=== PATIENT | female | born 1930 | race Caucasian/White ===

== ENCOUNTER → 2016-09-24 | Outpatient (CLI) | payer BC ==
[2016-09-25 07:51] LABS: ESTIMATED AVERAGE GLUCOSE 146 mg/dl; HA1C FLAG Normal (Normal)
== END | disposition home or self-care (01) ==
LOC: C.LAB1850 15:02
PROVIDERS: ATTEND Internal Medicine
DX: E11.9 Type 2 diabetes mellitus without complications (principal)

== ENCOUNTER → 2016-12-31 | Outpatient (CLI) | payer BC ==
[2016-12-31 09:56] LABS: ALT/SGPT 26 U/L (12-78); AST/SGOT 17 U/L (15-37); BLOOD UREA NITROGEN 29 mg/dl (7-18); CALCIUM 10.1 mg/dl (8.5-10.1); CARBON DIOXIDE 29 mmol/L (21-32); CHLORIDE 100 mmol/L (98-107); GLUCOSE 132 mg/dl (70-99); POTASSIUM 4.3 mmol/L (3.5-5.1); SODIUM 136 mmol/L (136-145)
[2016-12-31 10:09] LABS: CHOLESTEROL 156 mg/dl (0-200); CHOLESTEROL/HDL RATIO 2.1; HDL CHOLESTEROL 74 mg/dl; LDL CHOLESTEROL CALCULATED 65 mg/dl; THYROID STIMULATING HORMONE 0.636 uIu/ml (0.300-4.500); TRIGLYCERIDES 83 mg/dl (0-150); VERY LOW DENSITY LIPOPROT CALC 17 mg/dl
[2016-12-31 10:15] LABS: URINE APPEARANCE CLEAR (CLEAR); URINE BILIRUBIN NEG (NEG); URINE COLOR YELLOW; URINE NITRITE NEG (NEG); URINE SPECIFIC GRAVITY 1.024 (1.000-1.030); UROBILINOGEN NEG (NEG)
[2016-12-31 10:17] LABS: MANUAL MICROSCOPIC REQUIRED? NO; REVIEW REQ? NO
[2016-12-31 10:42] LABS: BASO % 0.8 %; BASO ABS # 0.09 K/uL (0-0.2); COMPLETE YES; EOS % 5.3 %; HEMATOCRIT 39.8 % (37-47); IG% 0.4 %; LYMPH % 18.7 %; LYMPH ABS # 2.11 K/uL (1.2-3.4); MEAN CELL VOLUME 93.2 fL (80-100); MEAN CORPUSCULAR HEMOGLOBIN 31.1 pg (25-34); MEAN CORPUSCULAR HGB CONC 33.4 g/dl (32-36); MEAN PLATELET VOLUME 9.3 fL (7.4-10.4); MONO % 7.5 %; NEUT % 67.3 %; PLATELET COUNT 396 K/uL (130-400); RED BLOOD COUNT 4.27 M/uL (4.2-5.4); WHITE BLOOD COUNT 11.26 K/uL (4.8-10.8)
[2016-12-31 11:02] LABS: ESTIMATED AVERAGE GLUCOSE 143 mg/dl; HA1C FLAG Normal (Normal)
== END | disposition home or self-care (01) ==
LOC: C.LAB1850 08:18
PROVIDERS: ATTEND Internal Medicine
DX: E11.9 Type 2 diabetes mellitus without complications (principal)

== ENCOUNTER → 2017-03-13 | Outpatient (CLI) | payer BC ==
--- NOTE | 2017-03-13 14:35 | MAMMOGRAPHY REPORT ---
UNILATERAL RIGHT DIGITAL SCREENING MAMMOGRAM TOMOSYNTHESIS WITH CAD: 03/13/2017 CLINICAL HISTORY: Routine screening. Patient has no complaints. TECHNIQUE: Breast tomosynthesis in addition to standard 2D mammography was performed. Current study was also evaluated with a Computer Aided Detection (CAD) system. COMPARISON: Comparison is made to exams dated: 10/18/2015 mammogram - [facility], mammogram, 09/13/2013 mammogram, 09/13/2013 mammogram, 02/03/2012 mammogram, and 02/18/2011 mamm ogram. BREAST COMPOSITION: There are scattered areas of fibroglandular density in the right breast. FINDINGS: There are no suspicious masses, calcifications, or areas of nonsurgical architectural dist ortion noted in the right breast. There has been no significant interval change compared to prior ex ams. A linear scar marker denotes a scar on the right upper outer breast. Scattered benign-appearin g calcifications are not significantly changed. IMPRESSION: ACR BI-RADS CATEGORY 2: BENIGN There is no mammographic evidence of malignancy in the right breast. A 1 year screening mammogram is recommended. The patient will receive written notification of the results. Approximately 10% of breast cancers are not detected with mammography. A negative mammographic report should not delay biopsy if a clinically suggestive mass is present. Koki Lopez M.D. /:03/13/2017 12:15:22 [place]: Sara Alan, [facility] letter sent: Normal 1/2 BI-RADS Code: ACR BI-RADS Category 2: Benign
== END | disposition home or self-care (01) ==
LOC: C.MAMM 10:31
PROVIDERS: ATTEND Internal Medicine
DX: Z12.31 Encounter for screening mammogram for malignant neoplasm of breast (principal); Z85.3 Personal history of malignant neoplasm of breast

== ENCOUNTER → 2017-05-12 | Outpatient (CLI) | payer BC ==
[2017-05-12 09:58] LABS: ESTIMATED AVERAGE GLUCOSE 143 mg/dl; HA1C FLAG Normal (Normal)
== END | disposition home or self-care (01) ==
LOC: C.LAB1850 08:50
PROVIDERS: ATTEND Physician Assistant
DX: E11.9 Type 2 diabetes mellitus without complications (principal)

== ENCOUNTER 2017-06-28 17:11 | Emergency (ER) | payer BC ==
[~2017-06-28] VITALS: Ht 157.5 cm; Wt 60.9 kg
[2017-06-28 17:16] VITALS: TEMP 36.6; Ht 157.5 cm; Wt 60.9 kg
--- NOTE | 2017-06-28 17:39 | DIAGNOSTIC IMAGING REPORT ---
CHEST ONE VIEW PORTABLE CLINICAL HISTORY: Fever. Sepsis. COMPARISON STUDY: No previous studies for comparison. FINDINGS: Patient is rotated. Minimal left basilar opacity suggests atelectasis. There is no consolidation to suggest pneumonia and there is no evidence of pulmonary edema. Mild cardiomegaly is noted. IMPRESSION: No acute cardiopulmonary findings. Electronically signed by: Emery Hoang M.D. 06/28/2017 5:38 PM Dictated Date/Time: 06/28/2017 5:37 PM
[2017-06-28 17:59] LABS: INFLUENZA B ANTIGEN POS for Influ B (NEG)
[2017-06-28] MEDS ORDERED: OSELTAMIVIR PHOSPHATE 75 MG CAP PO STA (18:07)
[2017-06-28] MEDS ORDERED: OSEL75CA12 PO (18:12)
--- NOTE | 2017-06-28 18:14 | EMERGENCY ROOM VISIT NOTE ---
History Report prepared by Casey: Rito Boss Under the Supervision of: Dr. Alejandro Garcia D.O. First contact with patient: 17:19 Chief Complaint: FLU LIKE SX Stated Complaint: TIGHT CHEST, RUNNY NOSE,COUGH History of Present Illness The patient is a 86 year old female who presents to the Emergency Room with complaints of flu like symptoms that began 3 days ago. She states she has decreased appetite, sore throat, dry cough, and congestion. She denies SOB and dehydration. Patient states that he generalized body aches are not unusual. Source of History: patient Onset: 3 days ago Position: other (global) Timing: constant Associated Symptoms: + sorethroat, + cough, No SOB Note: Patient complains of congestion and decreased appetite. Patient denies dehydration. She states her generalized body aches are not unusual. Review of Systems See HPI for pertinent positives & negatives. A total of 10 systems reviewed and were otherwise negative. Social History Smoking Status: Former Smoker Occupation Status: retired Current/Historical Medications Scheduled Oseltamivir (Tamiflu), 75 MG PO BID Physical Exam Vital Signs Date Time Temp Pulse Resp B/P (MAP) Pulse Ox O2 Delivery O2 Flow Rate FiO2 06/28/17 18:15 60 16 140/68 94 Room Air 06/28/17 17:16 36.6 65 20 138/70 94 Room Air Physical Exam CONSTITUTIONAL/VITAL SIGNS: Reviewed / noted above. GENERAL: Non-toxic in appearance. Hoarseness in voice. INTEGUMENTARY: Warm, dry, and [place]. HEAD: Normocephalic. EYES: without scleral icterus or trauma. ENT/OROPHARYNX: clear and moist. LYMPHADENOPATHY/NECK: Is supple without lymphadenopathy or meningismus. RESPIRATORY: Lungs clear and equal. CARDIOVASCULAR: Regular rate and rhythm. GI/ABDOMEN: Soft and nontender. No organomegaly or pulsatile mass. No rebound or guarding. Normal bowel sounds. EXTREMITIES: Warm and well perfused. BACK: No CVA tenderness. NEUROLOGICAL: Intact without focal deficits. PSYCHIATRIC: normal affect. MUSCULOSKELETAL: Normally developed with good muscle tone. Medical Decision & Procedures ER Provider Diagnostic Interpretation: Radiology results as stated below per my review and radiologist interpretation: CHEST ONE VIEW PORTABLE CLINICAL HISTORY: Fever. Sepsis. COMPARISON STUDY: No previous studies for comparison. FINDINGS: Patient is rotated. Minimal left basilar opacity suggests atelectasis. There is no consolidation to suggest pneumonia and there is no evidence of pulmonary edema. Mild cardiomegaly is noted. IMPRESSION: No acute cardiopulmonary findings. Electronically signed by: Emery Hoang M.D. 06/28/2017 5:38 PM Dictated Date/Time: 06/28/2017 5:37 PM Laboratory Results Test 06/28/17 17:30 Influenza Type A Antigen Neg for Influ A (NEG) Influenza Type B Antigen POS for Influ B (NEG) Laboratory results as stated above per my review. Medications Administered Medications (Trade) Dose Ordered Sig/Rosalie Route Start Time Stop Time Status Last Admin Dose Admin Oseltamivir Phosphate (Tamiflu Cap) 75 mg NOW STAT PO 06/28/17 18:07 06/28/17 18:08 DC 06/28/17 18:14 75 MG ED Course 171: Previous medical records were reviewed. The patient was evaluated in room C11. A complete history and physical examination was performed. 1806: Tamiflu Cap 75 mg PO. 1814: On reevaluation, the patient is doing well. I discussed the results and findings with the patient. She verbalized agreement of the treatment plan. She was discharged home. Medical Decision Differential includes viral illness, influenza, streptococcal pharyngitis, meningitis, pneumonia, sinusitis, UTI, pyelonephritis, otitis media. This is an 86-year-old female who presents to the ED with a chief complaint of a cough, hoarseness, fatigue and congestion for the past 3 days. The patient states that she came here to be tested for the flu. Her vital signs are normal. Her physical exam was essentially unremarkable. Chest x-ray was negative for acute disease. Flu swab was positive for influenza B. The patient was started on Tamiflu. She was discharged. Medication Reconcilliation Current Medication List: was personally reviewed by me Blood Pressure Screening Patient's blood pressure: Normal blood pressure Blood pressure disposition: Did not require urgent referral Impression Primary Impression: Influenza B Scribe Attestation The scribe's documentation has been prepared under my direction and personally reviewed by me in its entirety. I confirm that the note above accurately reflects all work, treatment, procedures, and medical decision making performed by me. Departure Information Dispostion Home / Self-Care Prescriptions Oseltamivir (Tamiflu) 75 Mg Cap 75 MG PO BID, #10 CAP Prov: Alejandro Garcia D.O. 06/28/17 Patient Instructions My [facility] Additional Instructions Your test results were positive for influenza B. Tamiflu as prescribed. Take [id number] cold and flu medication for symptoms. Drink plenty of fluids. Return to the emergency department for worsening or new symptoms or any concerns. You have been examined and treated today on an emergency basis only. This is not a substitute for, or an effort to provide, complete comprehensive medical care. It is impossible to recognize and treat all injuries or illnesses in a single emergency department visit. It is therefore important that you follow up closely with your doctor. Call as soon as possible for an appointment.
[2017-06-28 18:15] VITALS: BP 140/68; PULSE 60; O2SAT 94
== END 2017-06-28 18:22 | disposition home or self-care (01) ==
LOC: EDUNIT# 17:11 → C.EDB 17:16 → C.EDC 18:22
DX: J10.1 Influenza due to other identified influenza virus with other respiratory manifestations (principal); Z87.891 Personal history of nicotine dependence

== ENCOUNTER 2017-06-30 20:20 | Inpatient (IN) | payer BC, OTHER ==
[~2017-06-30] VITALS: Ht 157.5 cm; Wt 59.0 kg
[~2017-06-30 20:20] MED LIST: OSEL75CA12 PO
--- NOTE | 2017-06-30 22:58 | DIAGNOSTIC IMAGING REPORT ---
CHEST ONE VIEW PORTABLE CLINICAL HISTORY: cough, influenza COMPARISON STUDY: 06/28/2017 FINDINGS: The heart is at the upper limits of normal in size. There is no failure. There is no lobar consolidation. There is minor basilar interstitial thickening similar to the preceding study. No pleural effusions are visualized.[ IMPRESSION: No acute findings. Electronically signed by: Erwin Alvarez M.D. 06/30/2017 10:57 PM Dictated Date/Time: 06/30/2017 10:56 PM
[2017-06-30 23:21] LABS: BASO % 0.1 %; BASO ABS # 0.01 K/uL (0-0.2); HEMATOCRIT 38.6 % (37-47); HEMOGLOBIN 14.3 g/dL (12.0-16.0); IG# 0.03 K/uL (0.00-0.02); LYMPH % 9.7 %; LYMPH ABS # 0.94 K/uL (1.2-3.4); MEAN CELL VOLUME 84.5 fL (80-100); MEAN CORPUSCULAR HEMOGLOBIN 31.3 pg (25-34); MEAN PLATELET VOLUME 8.6 fL (7.4-10.4); MONO % 8.6 %; MONO ABS # 0.84 K/uL (0.11-0.59); NEUT % 81.3 %; PLATELET COUNT 262 K/uL (130-400); RED CELL DISTRIBUTION WIDTH CV 13.4 % (11.5-14.5); RED CELL DISTRIBUTION WIDTH SD 40.6 fL (36.4-46.3); WHITE BLOOD COUNT 9.72 K/uL (4.8-10.8)
[2017-06-30 23:56] LABS: ALBUMIN 3.4 gm/dl (3.4-5.0); ALKALINE PHOSPHATASE 64 U/L (45-117); ALT/SGPT 34 U/L (12-78); AST/SGOT 41 U/L (15-37); BLOOD UREA NITROGEN 18 mg/dl (7-18); CALCIUM 8.6 mg/dl (8.5-10.1); CARBON DIOXIDE 28 mmol/L (21-32); GLUCOSE 118 mg/dl (70-99); POTASSIUM 3.3 mmol/L (3.5-5.1); SODIUM 111 mmol/L (136-145); TOTAL PROTEIN 7.2 gm/dl (6.4-8.2)
[2017-06-30] MEDS ORDERED: SODIUM CHLORIDE 0.9% 1000ML 1,000 ML IV STA (23:57)
[2017-07-01] MEDS ORDERED: MULT-506 PO (00:53)
[2017-07-01] MEDS ORDERED: MULTCAP7 PO (00:54)
[2017-07-01] MEDS ORDERED: LEVO25TA PO (00:55)
[2017-07-01] MEDS ORDERED: B/P MED PO (00:55)
[2017-07-01] MEDS ORDERED: CALC500C70 PO (00:57)
[2017-07-01] MEDS ORDERED: CHOLESTEROL MED PO (00:58)
[2017-07-01] MEDS ORDERED: GLC/500 PO (00:59)
[2017-07-01] MEDS ORDERED: IBUP-1050 PO (01:00)
--- NOTE | 2017-07-01 02:05 | History and Physical ---
History & Physical Date & Time of Service: Jul 01, 2017 at 02:03 Chief Complaint: Flu Like,Fatiuge,Weakness,Nausea Primary Care Physician: Denis Patton M.D. History of Present Illness Source: patient, family, hospital records 86 year old elizabeth with DMII, hypothyroidism, HTN was seen in the ED 2 days ago and found to be positive for influenza. She was sent home with Tamiflu, but discontinued the medication after 2 doses because the medication made her feel anxious. However, since then, patient continues to feel unwell with initially dry, now productive cough of light green sputum and significant weakness. She has nasal congestion with post nasal drip, and had 1 episode of post-tussive vomiting. She has diminished appetite, with attempts to eat causing increased nausea. Her fatigue has been ongoing for a couple of days now - patient has felt off balance, but denies dizziness or lightheadedness. No sick contacts. She denies headaches, vision changes, CP, dyspnea with coughing or on exertion, no myalgias, and no urinary symptoms. She denies dehydration as she has been able to drink fluids - namely water, tea and seltzer. She has no constipation or diarrhea - she notes softer stools, with no blood, and no significant change in frequency. Patient sleeping poorly, secondary to chronic anxiety ROS is unremarkable except as noted above. Past Medical/Surgical History MEDICAL PROBLEMS Hypothyroidism Diabetes type II Anxiety HTN SURGICAL PROBLEMS Thyroidectomy Left breast mastectomy Tonsillectomy Family History Mom cardiac issues, Father DM Social History Smoking Status: Former Smoker (Ex smoker of 40 years, 35 pack year history) Smokeless Tobacco Use: No Alcohol Use: none Drug Use: none Housing status: lives alone Occupational Status: retired Immunizations History of Influenza Vaccine: Yes History of Tetanus Vaccine?: Yes History of Pneumococcal: Yes History of Hepatitis B Vaccine: Yes Multi-Drug Resistant Organisms History of MDRO: No Allergies Coded Allergies: Sulfa Antibiotics (Verified Allergy, Intermediate, hives, 07/01/17) Home Medications Scheduled Calcium/Vitamin D (Os-Carlo 500 Plus D), 1 TAB PO DAILY Ibuprofen (Advil), 400 MG PO BID Levothyroxine Sodium (Synthroid), Unknown Dose PO DAILY Metformin Hcl (Glucophage), Unknown Dose PO BID Multiple Vitamins W/ Minerals (Eye Vitamins), 1 CAP PO DAILY Multivitamin (Multivitamin), 1 TAB PO DAILY Oseltamivir (Tamiflu), 75 MG PO BID [B/P Med], 1 DOSE PO DAILY [Cholesterol Med], 1 DOSE PO QPM Physical Exam Vital Signs Date Time Temp Pulse Resp B/P (MAP) Pulse Ox O2 Delivery O2 Flow Rate FiO2 07/01/17 02:02 67 18 146/69 94 Room Air 07/01/17 01:33 66 16 140/68 96 Room Air 07/01/17 00:23 36.8 64 18 146/68 98 Room Air 06/30/17 23:19 64 20 181/72 93 Room Air 06/30/17 21:37 60 20 161/75 97 Room Air 06/30/17 20:33 36.8 62 18 179/77 96 Room Air General Appearance: WD/WN, no apparent distress Head: normocephalic, atraumatic Eyes: normal inspection ENT: hearing grossly normal, pharynx normal, + pertinent finding (Tacky mucous membranes) Neck: supple, no adenopathy Respiratory/Chest: normal breath sounds, no respiratory distress, no accessory muscle use Cardiovascular: regular rate, rhythm, no murmur, normal peripheral pulses Abdomen/GI: normal bowel sounds, non tender, soft Back: normal inspection, no CVA tenderness Extremities/Musculoskelatal: no calf tenderness, no pedal edema Neurologic/Psych: alert, normal mood/affect, oriented x 3 Skin: normal color, warm/dry, no rash Diagnostics Laboratory Results Results Past 24 Hours Test 06/30/17 23:00 Range/Units White Blood Count 9.72 4.8-10.8 K/uL Red Blood Count 4.57 4.2-5.4 M/uL Hemoglobin 14.3 12.0-16.0 g/dL Hematocrit 38.6 37-47 % Mean Corpuscular Volume 84.5 80-100 fL Mean Corpuscular Hemoglobin 31.3 25-34 pg Mean Corpuscular Hemoglobin Concent 37.0 32-36 g/dl Platelet Count 262 130-400 K/uL Mean Platelet Volume 8.6 7.4-10.4 fL Neutrophils (%) (Auto) 81.3 % Lymphocytes (%) (Auto) 9.7 % Monocytes (%) (Auto) 8.6 % Eosinophils (%) (Auto) 0.0 % Basophils (%) (Auto) 0.1 % Neutrophils # (Auto) 7.90 1.4-6.5 K/uL Lymphocytes # (Auto) 0.94 1.2-3.4 K/uL Monocytes # (Auto) 0.84 0.11-0.59 K/uL Eosinophils # (Auto) 0.00 0-0.5 K/uL Basophils # (Auto) 0.01 0-0.2 K/uL RDW Standard Deviation 40.6 36.4-46.3 fL RDW Coefficient of Variation 13.4 11.5-14.5 % Immature Granulocyte % (Auto) 0.3 % Immature Granulocyte # (Auto) 0.03 0.00-0.02 K/uL Urine Color YELLOW Urine Appearance CLEAR CLEAR Urine pH 6.5 4.5-7.5 Urine Specific [place] 1.021 1.000-1.030 Urine Protein 3+ NEG Urine Glucose (UA) NEG NEG Urine Ketones 2+ NEG Urine Occult Blood 1+ NEG Urine Nitrite NEG NEG Urine Bilirubin NEG NEG Urine Urobilinogen NEG NEG Urine Leukocyte Esterase NEG NEG Urine WBC (Auto) 1-5 0-5 /hpf Urine RBC (Auto) 10-30 0-4 /hpf Urine Hyaline Casts (Auto) 1-5 0-5 /lpf Urine Epithelial Cells (Auto) 10-20 0-5 /lpf Urine Bacteria (Auto) NEG NEG Urine Osmolality 600 500-800 mOms/kg Sodium Level 111 136-145 mmol/L Potassium Level 3.3 3.5-5.1 mmol/L Chloride Level 71 98-107 mmol/L Carbon Dioxide Level 28 21-32 mmol/L Anion Gap 12.0 3-11 mmol/L Blood Urea Nitrogen 18 7-18 mg/dl Creatinine 0.80 0.60-1.20 mg/dl Est Creatinine Clear Calc Drug Dose 41.4 ml/min Estimated GFR () 78.5 Estimated GFR (Non- 67.7 BUN/Creatinine Ratio 22.6 10-20 Random Glucose 118 70-99 mg/dl Osmolality 235 280-300 mOsm/kg Calcium Level 8.6 8.5-10.1 mg/dl Total Bilirubin 1.0 0.2-1 mg/dl Aspartate Amino Transf (AST/SGOT) 41 15-37 U/L Alanine Aminotransferase (ALT/SGPT) 34 12-78 U/L Alkaline Phosphatase 64 45-117 U/L Troponin I < 0.015 0-0.045 ng/ml Total Protein 7.2 6.4-8.2 gm/dl Albumin 3.4 3.4-5.0 gm/dl Globulin 3.8 2.5-4.0 gm/dl Albumin/Globulin Ratio 0.9 0.9-2 Diagnostic Radiology CHEST ONE VIEW PORTABLE CLINICAL HISTORY: cough, influenza COMPARISON STUDY: 06/28/2017 FINDINGS: The heart is at the upper limits of normal in size. There is no failure. There is no lobar consolidation. There is minor basilar interstitial thickening similar to the preceding study. No pleural effusions are visualized.[ IMPRESSION: No acute findings. EKG Normal sinus rhythm Nonspecific ST abnormality Abnormal ECG No previous ECGs available Hr 64, QTc 453 Impression Assessment and Plan 86 year old female with DMII, hypothyroidism, HTN admitted with hyponatremia. Hyponatremia - 111 on admission - Low serum OSM, and low urine OSM - no evidence of SIADH - Lasix 40mg daily - NaCl tablets ordered - Trend BMP q6h Weakness - Likely contributed to by influenza and hyponatremia - PT/OT evals Influenza - Patient declining Tamiflu - Symptomatic management - Sputum culture ordered DM - Hold metformin 1000mg BID - ISS with checks ac/hs HTN/HLD - Continue home meds: metoprolol, simvastatin Hold triamterene/HCTZ Hypothyroidism - Continue levothyroxine VTE ppx - SCDs Attending addendum: I have physically seen this patient, have supervised the medical residents activities, and agree with the H&P unless as otherwise noted. Assessment and Plan: Hyponatremia with hypoosmolality-- Sodium 111, serum osmolality 235 and urine osmolality 235. Lasix 40 mg IV daily Sodium chloride tablets BMP every 6 hours for 48 hours. Hold triamterene/HCTZ Likely an element of polydipsia Influenza-- Patient refusing Tamiflu Treat symptomatically Sputum Gram stain and culture Level of Care Med/Surg Advanced Directives Existing Advance Directive: No Existing Living Will: Yes Existing Power of Bulb Weeder: No Existing Health Care Proxy: Yes (Daughter: Nguyen Brown) Resuscitation Status DO NOT RESUSCITATE VTE Prophylaxis VTE Risk Assessment Done? Y/N: Yes Risk Level: Moderate Given or contraindicated: SCD's Resident Tracking Resident Involvement: Resident Care Provided Care Provided: Adult Hospital Medicine
[2017-07-01] MEDS ORDERED: ACETAMINOPHEN 325 MG TAB PO PRN (03:30)
[2017-07-01] MEDS ORDERED: ONDANSETRON INJ 2 MG/ML 2 ML VIAL IV PRN (03:30)
[2017-07-01] MEDS ORDERED: MAGNESIUM HYDROXIDE SUSP 30 ML UDC PO PRN (03:30)
[2017-07-01] MEDS ORDERED: ALUMINUM/MAGNESIUM/SIMETH (MAALOX MAX) 30 ML UDC PO PRN (03:30)
[2017-07-01] MEDS ORDERED: POLYETHYLENE (MIRALAX) 17 GM PACK PO PRN (03:30)
[2017-07-01 04:28] LABS: CALCIUM 7.7 mg/dl (8.5-10.1); CREATININE 0.63 mg/dl (0.60-1.20)
[2017-07-01 04:53] VITALS: BP 176/61; PULSE 65; TEMP 36.8; Ht 157.5 cm; Wt 59.0 kg
[2017-07-01] MEDS ORDERED: POTASSIUM CHLORIDE 20 MEQ TABCR PO ONE (07:00)
[2017-07-01] MEDS: LEVOTHYROXINE 112 MCG TAB PO SCH (07:24)
--- NOTE | 2017-07-01 07:28 | EMERGENCY ROOM VISIT NOTE ---
History First contact with patient: 22:14 Chief Complaint: FLU LIKE SX Stated Complaint: HYPONATREMIA History of Present Illness The patient is a 86 year old female who presents to the Emergency Room with complaints of weakness and influenza. The patient states she was seen here a few days ago and diagnosed with influenza. She was prescribed Tamiflu but has been unable to take this due to vomiting. She reports she has had a decreased appetite and has been vomiting after eating. She reports a cough and chest tightness. She states she has been trying to bring up mucus but has been having difficulty doing so. She reports that she has been feeling generalized weakness and does not feel well overall. She denies chest pain or shortness of breath. She denies abdominal pain or diarrhea. Review of Systems A complete 10 point review of systems was reviewed with the patient with pertinent positives and negatives as per history of present illness. All else were negative. Past Medical/Surgical History Medical Problems: (1) Diabetes mellitus, type II (2) Hyponatremia Social History Smoking Status: Never Smoker Smokeless Tobacco Use: No Drug Use: none Occupation Status: retired Current/Historical Medications Scheduled Calcium/Vitamin D (Os-Carlo 500 Plus D), 1 TAB PO DAILY Ibuprofen (Advil), 400 MG PO BID Levothyroxine Sodium (Synthroid), Unknown Dose PO DAILY Metformin Hcl (Glucophage), Unknown Dose PO BID Multiple Vitamins W/ Minerals (Eye Vitamins), 1 CAP PO DAILY Multivitamin (Multivitamin), 1 TAB PO DAILY Oseltamivir (Tamiflu), 75 MG PO BID [B/P Med], 1 DOSE PO DAILY [Cholesterol Med], 1 DOSE PO QPM Physical Exam Vital Signs Date Time Temp Pulse Resp B/P (MAP) Pulse Ox O2 Delivery O2 Flow Rate FiO2 07/01/17 03:07 64 18 127/72 93 Room Air 07/01/17 02:02 67 18 146/69 94 Room Air 07/01/17 01:33 66 16 140/68 96 Room Air 07/01/17 00:23 36.8 64 18 146/68 98 Room Air 06/30/17 23:19 64 20 181/72 93 Room Air 06/30/17 21:37 60 20 161/75 97 Room Air 06/30/17 20:33 36.8 62 18 179/77 96 Room Air Physical Exam VITALS: Vitals are noted on the nurse's note and reviewed by myself. Vital signs stable. GENERAL: This is an 86-year-old female, in no acute distress, well-developed well-nourished. SKIN: The skin was without rashes. EARS: External auditory canals clear, tympanic membranes pearly [place] without erythema or effusion bilaterally. EYES: Pupils equal round and reactive to light and accommodation. NOSE: Patent, turbinates without inflammation or discharge. MOUTH: Mucous membranes moist. Tonsils are not enlarged. Pharynx without erythema or exudate. NECK: Supple without nuchal rigidity. No lymphadenopathy. HEART: Regular rate and rhythm without murmurs gallops or rubs. LUNGS: Clear to auscultation bilaterally without wheezes, rales or rhonchi. No retractions or accessory muscle use. ABDOMEN: Positive bowel sounds x 4. Soft, nontender to palpation. NEURO: Patient was alert and oriented to person place and time. Medical Decision & Procedures ER Provider Diagnostic Interpretation: CHEST ONE VIEW PORTABLE CLINICAL HISTORY: cough, influenza COMPARISON STUDY: 06/28/2017 FINDINGS: The heart is at the upper limits of normal in size. There is no failure. There is no lobar consolidation. There is minor basilar interstitial thickening similar to the preceding study. No pleural effusions are visualized.[ IMPRESSION: No acute findings. Laboratory Results 06/30/17 23:00 Red Blood Count 4.57, Mean Corpuscular Volume 84.5, Mean Corpuscular Hemoglobin 31.3, Mean Corpuscular Hemoglobin Concent 37.0, Mean Platelet Volume 8.6, Neutrophils (%) (Auto) 81.3, Lymphocytes (%) (Auto) 9.7, Monocytes (%) (Auto) 8.6, Eosinophils (%) (Auto) 0.0, Basophils (%) (Auto) 0.1, Neutrophils # (Auto) 7.90, Lymphocytes # (Auto) 0.94, Monocytes # (Auto) 0.84, Eosinophils # (Auto) 0.00, Basophils # (Auto) 0.01 Test 06/30/17 23:00 White Blood Count 9.72 K/uL (4.8-10.8) Red Blood Count 4.57 M/uL (4.2-5.4) Hemoglobin 14.3 g/dL (12.0-16.0) Hematocrit 38.6 % (37-47) Mean Corpuscular Volume 84.5 fL (80-100) Mean Corpuscular Hemoglobin 31.3 pg (25-34) Mean Corpuscular Hemoglobin Concent 37.0 g/dl (32-36) Platelet Count 262 K/uL (130-400) Mean Platelet Volume 8.6 fL (7.4-10.4) Neutrophils (%) (Auto) 81.3 % Lymphocytes (%) (Auto) 9.7 % Monocytes (%) (Auto) 8.6 % Eosinophils (%) (Auto) 0.0 % Basophils (%) (Auto) 0.1 % Neutrophils # (Auto) 7.90 K/uL (1.4-6.5) Lymphocytes # (Auto) 0.94 K/uL (1.2-3.4) Monocytes # (Auto) 0.84 K/uL (0.11-0.59) Eosinophils # (Auto) 0.00 K/uL (0-0.5) Basophils # (Auto) 0.01 K/uL (0-0.2) RDW Standard Deviation 40.6 fL (36.4-46.3) RDW Coefficient of Variation 13.4 % (11.5-14.5) Immature Granulocyte % (Auto) 0.3 % Immature Granulocyte # (Auto) 0.03 K/uL (0.00-0.02) Urine Color YELLOW Urine Appearance CLEAR (CLEAR) Urine pH 6.5 (4.5-7.5) Urine Specific [place] 1.021 (1.000-1.030) Urine Protein 3+ (NEG) Urine Glucose (UA) NEG (NEG) Urine Ketones 2+ (NEG) Urine Occult Blood 1+ (NEG) Urine Nitrite NEG (NEG) Urine Bilirubin NEG (NEG) Urine Urobilinogen NEG (NEG) Urine Leukocyte Esterase NEG (NEG) Urine WBC (Auto) 1-5 /hpf (0-5) Urine RBC (Auto) 10-30 /hpf (0-4) Urine Hyaline Casts (Auto) 1-5 /lpf (0-5) Urine Epithelial Cells (Auto) 10-20 /lpf (0-5) Urine Bacteria (Auto) NEG (NEG) Urine Osmolality 600 mOms/kg (500-800) Osmolality 235 mOsm/kg (280-300) Total Bilirubin 1.0 mg/dl (0.2-1) Aspartate Amino Transf (AST/SGOT) 41 U/L (15-37) Alanine Aminotransferase (ALT/SGPT) 34 U/L (12-78) Alkaline Phosphatase 64 U/L (45-117) Troponin I < 0.015 ng/ml (0-0.045) Total Protein 7.2 gm/dl (6.4-8.2) Albumin 3.4 gm/dl (3.4-5.0) Globulin 3.8 gm/dl (2.5-4.0) Albumin/Globulin Ratio 0.9 (0.9-2) Medications Administered Medications (Trade) Dose Ordered Sig/Rosalie Route Start Time Stop Time Status Last Admin Dose Admin Sodium Chloride 1,000 ml @ 999 mls/hr Q1H1M STAT IV 06/30/17 23:57 07/01/17 00:57 DC 07/01/17 00:23 999 MLS/HR ECG Rate (beats per minute): 64 Rhythm: normal sinus Findings: no acute ischemic change, no ectopy, other (baseline artifact) Comparison ECG Date: no prior available Medical Decision Differential diagnosis includes influenza, pneumonia, dehydration, electrolyte abnormality, among others. The patient is an 86-year-old female who presents today complaining of weakness and flulike symptoms. Patient was diagnosed with influenza B two days ago. Labs revealed hyponatremia with sodium of 111. Chloride was 71. Glucose just slightly elevated at 118. Patient received fluids. She will be evaluated by the hospitalist for admission and treatment of hyponatremia. The patient was independently evaluated by Dr. Garcia, ED attending physician, who agreed with my assessment and treatment plan. Medication Reconcilliation Current Medication List: was personally reviewed by me Blood Pressure Screening Patient's blood pressure: Elevated blood pressure (will be followed by hospitalist) Impression Primary Impression: Hyponatremia Additional Impression: Influenza B Departure Information Dispostion Admitted as an inpatient Condition FAIR Referrals Denis Patton M.D. (PCP) Forms HOME CARE DOCUMENTATION FORM, IMPORTANT VISIT INFORMATION Patient Instructions My [facility] Problem Qualifiers
[2017-07-01 07:54] VITALS: BP 127/67; PULSE 64; TEMP 36.7; O2SAT 91
[2017-07-01] MEDS: POTASSIUM CHLORIDE 20 MEQ TABCR PO SCH ×2 (08:10→20:32)
[2017-07-01] MEDS: SODIUM CHLORIDE 1 GM TAB PO SCH (08:11)
[2017-07-01] MEDS: METOPROLOL SUCC 50MG EXT REL TAB PO SCH (08:11)
[2017-07-01] MEDS: IBUPROFEN 200 MG TAB PO SCH ×2 (08:12→20:32)
[2017-07-01] MEDS: CALCIUM 600MG + VIT D 400 IU TAB PO SCH (08:13)
[2017-07-01] MEDS: MULTIVITAMIN TAB PO SCH (08:13)
[2017-07-01] MEDS: INSULIN ASPART 100 UNITS/ML 3 ML PEN SC SCH ×4 (08:19→20:35)
[2017-07-01] MEDS ORDERED: INFLUENZA VACCINE HIGH DOSE 65+ 0.5 ML SYR IM. ONE (08:30)
[2017-07-01] MEDS ORDERED: INFLUENZA ADMINISTRATION CHARGE ONE (08:30)
[2017-07-01] MEDS ORDERED: FUROSEMIDE INJ 40 MG in SYRINGE 0 ML IV SCH (09:00)
[2017-07-01] MEDS ORDERED: TRIAMTERENE/HCTZ 37.5/25MG CAP PO SCH (09:00)
[2017-07-01 10:17] LABS: CALCIUM 8.2 mg/dl (8.5-10.1); CREATININE 0.73 mg/dl (0.60-1.20); POTASSIUM 3.1 mmol/L (3.5-5.1)
[2017-07-01 10:43] VITALS: BP 119/70; PULSE 63; TEMP 36.8; O2SAT 92
[2017-07-01] MEDS ORDERED: POTASSIUM CHLORIDE 10 MEQ TABCR PO ONE ×2 (12:15→16:00)
--- NOTE | 2017-07-01 14:26 | Hospitalist Progress Note ---
Hospitalist Progress Note Date of Service Jul 01, 2017. (Maria E Vanegas .EDWARDO) Subjective Pt evaluation today including: conversation w/ patient, physical exam, chart review, lab review, review of inpatient medication list Voiding: no voiding problems Ms. Clemente is feeling somewhat better today. She is coughing with little production, she is able to sleep at night. She does not feel sob, just generally tired and weak. ROS Constitutional: no chills, aches, sweats or fever Respiratory: see HPI Cardiac: no chest pain, palpitations, edema, orthopnea or lightheadedness GI: no abdominal pain, nausea, vomiting, diarrhea or constipation : no dysuria or hesitancy Extremities: no joint pain or weakness Skin: no rash All other systems reviewed and negative (Maria E Vanegas CRNP) Medications Medications Administered Medications (Trade) Dose Ordered Sig/Rosalie Route Start Time Stop Time Status Last Admin Dose Admin Sodium Chloride 1,000 ml @ 999 mls/hr Q1H1M STAT IV 06/30/17 23:57 07/01/17 00:57 DC 07/01/17 00:23 999 MLS/HR Furosemide 40 mg/ Syringe 4 ml @ 4 mls/min DAILY IV 07/01/17 09:00 07/31/17 08:59 07/01/17 08:16 4 MLS/MIN Sodium Chloride (Sodium Chloride Tab) 1 gm DAILY PO 07/01/17 09:00 07/03/17 09:01 07/01/17 08:11 1 GM Calcium/Vitamin D (Caltrate Plus Tab) 1 tab DAILY PO 07/01/17 09:00 07/31/17 08:59 07/01/17 08:13 1 TAB Ibuprofen (Advil Tab) 400 mg BID PO 07/01/17 09:00 07/31/17 08:59 07/01/17 08:12 400 MG Multivitamins (Multivitamin Tab) 1 tab DAILY PO 07/01/17 09:00 07/31/17 08:59 07/01/17 08:13 1 TAB Levothyroxine Sodium (Synthroid Tab) 112 mcg DAILYBB PO 07/01/17 06:30 07/31/17 06:29 07/01/17 07:24 112 MCG Metoprolol Succinate (Toprol Xl Tab) 50 mg QAM PO 07/01/17 09:00 07/31/17 08:59 07/01/17 08:11 50 MG Insulin Aspart (novoLOG ASPART) SLIDING SCALE If C... ACHS SC 07/01/17 06:30 07/31/17 06:29 07/01/17 08:19 2 UNITS Potassium Chloride (Klor-Con Tab) 40 meq TODAY@0700 ONCE PO 07/01/17 07:00 07/01/17 07:01 DC 07/01/17 08:10 40 MEQ Potassium Chloride (Klor-Con Tab) 40 meq BID PO 07/01/17 09:00 07/31/17 08:59 07/01/17 08:10 40 MEQ Potassium Chloride (Klor-Con M10) 40 meq NOW ONCE PO 07/01/17 12:15 07/01/17 12:36 DC 07/01/17 13:42 40 MEQ (Maria E Vanegas, EDWARDO) Objective Vital Signs Date Time Temp Pulse Resp B/P (MAP) Pulse Ox O2 Delivery O2 Flow Rate FiO2 07/01/17 10:43 36.8 63 16 119/70 (86) 92 Room Air 07/01/17 08:00 Room Air 07/01/17 07:54 36.7 64 20 127/67 (87) 91 Room Air 07/01/17 04:53 36.8 65 20 176/61 Room Air 07/01/17 04:23 36.8 62 20 137/70 94 Room Air 07/01/17 03:07 64 18 127/72 93 Room Air 07/01/17 02:02 67 18 146/69 94 Room Air 07/01/17 01:33 66 16 140/68 96 Room Air 07/01/17 00:23 36.8 64 18 146/68 98 Room Air 06/30/17 23:19 64 20 181/72 93 Room Air 06/30/17 21:37 60 20 161/75 97 Room Air 06/30/17 20:33 36.8 62 18 179/77 96 Room Air (Maria E Vanegas, EDWARDO) Physical Exam Notes: General: no distress Eyes: normal inspection, PERLL Respiratory: chest non tender, clear to auscultation, normal breath sounds, no respiratory distress, no accessory muscle use Cardiac: regular rate and rhythm, no rub or gallop, no murmur, no edema, no jvd GI/: active bowel sounds, no abd pain or tenderness, soft, non distended Extremities: normal range of motion, normal strength, non tender Neuro/Psych: alert and oriented x 3, normal mood and affect Skin: normal color, dry (Maria E Vanegas ., EDWARDO) Laboratory Results Last 24 Hours Test 06/30/17 23:00 07/01/17 03:51 07/01/17 07:39 07/01/17 09:15 White Blood Count 9.72 K/uL Red Blood Count 4.57 M/uL Hemoglobin 14.3 g/dL Hematocrit 38.6 % Mean Corpuscular Volume 84.5 fL Mean Corpuscular Hemoglobin 31.3 pg Mean Corpuscular Hemoglobin Concent 37.0 g/dl Platelet Count 262 K/uL Mean Platelet Volume 8.6 fL Neutrophils (%) (Auto) 81.3 % Lymphocytes (%) (Auto) 9.7 % Monocytes (%) (Auto) 8.6 % Eosinophils (%) (Auto) 0.0 % Basophils (%) (Auto) 0.1 % Neutrophils # (Auto) 7.90 K/uL Lymphocytes # (Auto) 0.94 K/uL Monocytes # (Auto) 0.84 K/uL Eosinophils # (Auto) 0.00 K/uL Basophils # (Auto) 0.01 K/uL RDW Standard Deviation 40.6 fL RDW Coefficient of Variation 13.4 % Immature Granulocyte % (Auto) 0.3 % Immature Granulocyte # (Auto) 0.03 K/uL Urine Color YELLOW Urine Appearance CLEAR Urine pH 6.5 Urine Specific [place] 1.021 Urine Protein 3+ Urine Glucose (UA) NEG Urine Ketones 2+ Urine Occult Blood 1+ Urine Nitrite NEG Urine Bilirubin NEG Urine Urobilinogen NEG Urine Leukocyte Esterase NEG Urine WBC (Auto) 1-5 /hpf Urine RBC (Auto) 10-30 /hpf Urine Hyaline Casts (Auto) 1-5 /lpf Urine Epithelial Cells (Auto) 10-20 /lpf Urine Bacteria (Auto) NEG Urine Osmolality 600 mOms/kg Sodium Level 111 mmol/L 115 mmol/L 116 mmol/L Potassium Level 3.3 mmol/L 3.0 mmol/L 3.1 mmol/L Chloride Level 71 mmol/L 79 mmol/L 77 mmol/L Carbon Dioxide Level 28 mmol/L 26 mmol/L 31 mmol/L Anion Gap 12.0 mmol/L 10.0 mmol/L 8.0 mmol/L Blood Urea Nitrogen 18 mg/dl 16 mg/dl 15 mg/dl Creatinine 0.80 mg/dl 0.63 mg/dl 0.73 mg/dl Est Creatinine Clear Calc Drug Dose 41.4 ml/min 52.6 ml/min 45.4 ml/min Estimated GFR () 78.5 95.5 87.7 Estimated GFR (Non- 67.7 82.4 75.6 BUN/Creatinine Ratio 22.6 24.7 20.2 Random Glucose 118 mg/dl 100 mg/dl 129 mg/dl Osmolality 235 mOsm/kg Calcium Level 8.6 mg/dl 7.7 mg/dl 8.2 mg/dl Total Bilirubin 1.0 mg/dl Aspartate Amino Transf (AST/SGOT) 41 U/L Alanine Aminotransferase (ALT/SGPT) 34 U/L Alkaline Phosphatase 64 U/L Troponin I < 0.015 ng/ml Total Protein 7.2 gm/dl Albumin 3.4 gm/dl Globulin 3.8 gm/dl Albumin/Globulin Ratio 0.9 Bedside Glucose 106 mg/dl Test 07/01/17 11:49 Bedside Glucose 133 mg/dl (Maria E Vanegas CRNP) Assessment and Plan 86 year old female with DMII, hypothyroidism, HTN admitted with hyponatremia. Hyponatremia - 111 on admission, 116 this morning, repeat pending - goal is 8-12 mEq increase per 24 hours - Low serum OSM, and low urine OSM - no evidence of SIADH, likely physiological due to illness - Lasix 40mg daily - NaCl tablets ordered - Trend BMP q6h - urine sodium pending - FR 1500 ml/day, strict Is&Os - hold on further lasix for now especially given hypokalemia Hypokalemia - replaced, repeat pending Weakness - Likely contributed to by influenza and hyponatremia - PT/OT evals Influenza - Patient declining Tamiflu - Symptomatic management - Sputum culture ordered DM - Hold metformin 1000mg BID - ISS with checks ac/hs HTN/HLD - Continue home meds: metoprolol, simvastatin Hold triamterene/HCTZ Hypothyroidism - Continue levothyroxine VTE ppx - SCDs (Maria E Vanegas CRNP) i personally examined pt and verified all martin points ekaterina BROOKE feeling ok no new complaints updated, no further questions vitals noted nad breathing unlabored some cough no pallor or icterus flu, hyponatremia - improving, continue fluid restriction otherwise as above (Rodolfo Lezama, D.O.)
[2017-07-01 15:17] VITALS: BP 128/81; PULSE 75; TEMP 36.4; O2SAT 95
[2017-07-01 15:28] LABS: CREATININE 0.83 mg/dl (0.60-1.20); POTASSIUM 3.8 mmol/L (3.5-5.1)
[2017-07-01] MEDS ORDERED: MAGNESIUM SULFATE 1GM / D5W 1 GM in PREMIXED IN D5W 100 ML IV STA (15:53)
[2017-07-01] MEDS ORDERED: GLUCAGON FOR INJ 1 MG VIAL SQ PRN (19:15)
[2017-07-01] MEDS ORDERED: GLUCOSE 40% GEL 15 GM TUBE PO PRN (19:15)
[2017-07-01] MEDS ORDERED: GLUCOSE 10 TABS/TUBE PO PRN (19:15)
[2017-07-01] MEDS: MAGNESIUM OXIDE 400 MG TAB PO SCH (20:31)
[2017-07-01] MEDS: SIMVASTATIN 20 MG TAB PO SCH (20:32)
[2017-07-01] MEDS ORDERED: COUGH DROP (SUGAR FREE) LOZ 24 LOZ/1 BOX LOZ ONE (20:38)
[2017-07-01 22:05] LABS: CALCIUM 8.1 mg/dl (8.5-10.1); CREATININE 0.95 mg/dl (0.60-1.20); POTASSIUM 4.8 mmol/L (3.5-5.1)
[2017-07-01 23:07] VITALS: BP 110/70; PULSE 62; TEMP 36.9; O2SAT 91
[2017-07-02 03:47] LABS: BASO % 0.1 %; BASO ABS # 0.01 K/uL (0-0.2); EOS % 0.3 %; EOS ABS # 0.03 K/uL (0-0.5); HEMOGLOBIN 14.4 g/dL (12.0-16.0); IG# 0.04 K/uL (0.00-0.02); LYMPH ABS # 1.69 K/uL (1.2-3.4); MEAN CELL VOLUME 86.9 fL (80-100); MEAN CORPUSCULAR HEMOGLOBIN 30.5 pg (25-34); MEAN CORPUSCULAR HGB CONC 35.1 g/dl (32-36); MEAN PLATELET VOLUME 8.7 fL (7.4-10.4); MONO % 11.4 %; NEUT % 71.8 %; NEUT ABS # 7.58 K/uL (1.4-6.5); PLATELET COUNT 286 K/uL (130-400); RED CELL DISTRIBUTION WIDTH CV 13.4 % (11.5-14.5); WHITE BLOOD COUNT 10.55 K/uL (4.8-10.8)
[2017-07-02 04:12] LABS: CALCIUM 8.2 mg/dl (8.5-10.1); CREATININE 0.92 mg/dl (0.60-1.20); POTASSIUM 5.8 mmol/L (3.5-5.1)
[2017-07-02] MEDS: LEVOTHYROXINE 112 MCG TAB PO SCH (06:48)
[2017-07-02 08:00] VITALS: BP 116/71; PULSE 60; TEMP 37; O2SAT 94
[2017-07-02] MEDS: POTASSIUM CHLORIDE 20 MEQ TABCR PO SCH (08:00)
[2017-07-02] MEDS: IBUPROFEN 200 MG TAB PO SCH ×2 (08:39→21:16)
[2017-07-02] MEDS: MAGNESIUM OXIDE 400 MG TAB PO SCH ×2 (08:40→21:16)
[2017-07-02] MEDS: MULTIVITAMIN TAB PO SCH (08:40)
[2017-07-02] MEDS: CALCIUM 600MG + VIT D 400 IU TAB PO SCH (08:40)
[2017-07-02] MEDS: SODIUM CHLORIDE 1 GM TAB PO SCH (08:40)
[2017-07-02] MEDS: METOPROLOL SUCC 50MG EXT REL TAB PO SCH (08:40)
[2017-07-02] MEDS: INSULIN ASPART 100 UNITS/ML 3 ML PEN SC SCH ×4 (08:48→21:20)
[2017-07-02 11:24] LABS: CALCIUM 8.1 mg/dl (8.5-10.1); CREATININE 0.77 mg/dl (0.60-1.20); POTASSIUM 4.9 mmol/L (3.5-5.1)
--- NOTE | 2017-07-02 14:13 | Hospitalist Progress Note ---
Hospitalist Progress Note Date of Service Jul 02, 2017. (Maria E Vanegas CRNP) Subjective Pt evaluation today including: conversation w/ patient, physical exam, chart review, lab review, review of inpatient medication list Voiding: no voiding problems Ms. Clemente looks much better today and is feeling better as well. Continues to cough but feels it is breaking up. "A little wobbly" when she stands but otherwise denies complaints. ROS Constitutional: no chills, aches, sweats or fever Respiratory: no sob, sputum, or wheezing Cardiac: no chest pain, palpitations, edema, orthopnea or lightheadedness GI: no abdominal pain, nausea, vomiting, diarrhea or constipation : no dysuria or hesitancy Extremities: no joint pain or weakness Skin: no rash All other systems reviewed and negative (Maria E Vanegas CRNP) Medications Medications (Trade) Dose Ordered Sig/Rosalie Route Start Time Stop Time Status Last Admin Dose Admin Simvastatin (Zocor Tab) 20 mg PM PO 07/01/17 21:00 07/31/17 20:59 07/01/17 20:32 20 MG Potassium Chloride (Klor-Con M10) 40 meq NOW ONCE PO 07/01/17 12:15 07/01/17 12:36 DC 07/01/17 13:42 40 MEQ Potassium Chloride (Klor-Con M10) 40 meq ONE ONCE PO 07/01/17 16:00 07/01/17 16:01 DC 07/01/17 17:01 40 MEQ Magnesium Oxide (Mag-Ox Tab) 400 mg BID PO 07/01/17 20:00 07/31/17 19:59 07/02/17 08:40 400 MG Magnesium Sulfate 1 gm/Prmx 100 ml @ 100 mls/hr NOW STAT IV 07/01/17 15:53 07/01/17 16:52 DC 07/01/17 16:54 100 MLS/HR Menthol (Nice Rufina) 24 rufina STK-MED ONCE RUFINA 07/01/17 20:38 07/01/17 20:39 DC 07/01/17 20:39 24 RUFINA (Maria E Vanegas CRNP) Objective Vital Signs Date Time Temp Pulse Resp B/P (MAP) Pulse Ox O2 Delivery O2 Flow Rate FiO2 07/02/17 08:00 37.0 60 20 116/71 (86) 94 Room Air 07/02/17 08:00 94 Room Air 07/02/17 05:00 Room Air 07/01/17 23:07 36.9 62 20 110/70 (83) 91 Room Air 07/01/17 16:00 Room Air 07/01/17 15:17 36.4 75 18 128/81 (97) 95 Room Air (Maria E Vanegas CRNP) Physical Exam Notes: General: no distress Eyes: normal inspection, PERLL Respiratory: chest non tender, scattered rhonchi left lung [place] otherwise clear, no respiratory distress, no accessory muscle use Cardiac: regular rate and rhythm, no rub or gallop, no murmur, no edema, no jvd GI/: active bowel sounds, no abd pain or tenderness, soft, non distended Extremities: normal range of motion, normal strength, non tender Neuro/Psych: alert and oriented x 3, normal mood and affect Skin: normal color, dry (Maria E Vanegas CRNP) Laboratory Results Last 24 Hours Test 07/01/17 11:49 07/01/17 14:36 07/01/17 16:48 07/01/17 20:25 Bedside Glucose 133 mg/dl 107 mg/dl 131 mg/dl Sodium Level 117 mmol/L Potassium Level 3.8 mmol/L Chloride Level 80 mmol/L Carbon Dioxide Level 29 mmol/L Anion Gap 7.0 mmol/L Blood Urea Nitrogen 16 mg/dl Creatinine 0.83 mg/dl Est Creatinine Clear Calc Drug Dose 39.9 ml/min Estimated GFR () 75.1 Estimated GFR (Non- 64.8 BUN/Creatinine Ratio 19.6 Random Glucose 116 mg/dl Calcium Level 8.0 mg/dl Magnesium Level 1.6 mg/dl Test 07/01/17 21:22 07/02/17 03:38 07/02/17 07:24 07/02/17 08:45 Sodium Level 120 mmol/L 122 mmol/L Potassium Level 4.8 mmol/L 5.8 mmol/L Chloride Level 83 mmol/L 88 mmol/L Carbon Dioxide Level 30 mmol/L 30 mmol/L Anion Gap 7.0 mmol/L 4.0 mmol/L Blood Urea Nitrogen 16 mg/dl 16 mg/dl Creatinine 0.95 mg/dl 0.92 mg/dl Est Creatinine Clear Calc Drug Dose 34.9 ml/min 36.0 ml/min Estimated GFR () 63.7 66.3 Estimated GFR (Non- 55.0 57.2 BUN/Creatinine Ratio 16.9 17.7 Random Glucose 129 mg/dl 99 mg/dl Calcium Level 8.1 mg/dl 8.2 mg/dl White Blood Count 10.55 K/uL Red Blood Count 4.72 M/uL Hemoglobin 14.4 g/dL Hematocrit 41.0 % Mean Corpuscular Volume 86.9 fL Mean Corpuscular Hemoglobin 30.5 pg Mean Corpuscular Hemoglobin Concent 35.1 g/dl Platelet Count 286 K/uL Mean Platelet Volume 8.7 fL Neutrophils (%) (Auto) 71.8 % Lymphocytes (%) (Auto) 16.0 % Monocytes (%) (Auto) 11.4 % Eosinophils (%) (Auto) 0.3 % Basophils (%) (Auto) 0.1 % Neutrophils # (Auto) 7.58 K/uL Lymphocytes # (Auto) 1.69 K/uL Monocytes # (Auto) 1.20 K/uL Eosinophils # (Auto) 0.03 K/uL Basophils # (Auto) 0.01 K/uL RDW Standard Deviation 43.0 fL RDW Coefficient of Variation 13.4 % Immature Granulocyte % (Auto) 0.4 % Immature Granulocyte # (Auto) 0.04 K/uL Magnesium Level 2.6 mg/dl Bedside Glucose 96 mg/dl Urine Random Sodium 17 mEq/L Test 07/02/17 09:25 Sodium Level 124 mmol/L Potassium Level 4.9 mmol/L Chloride Level 91 mmol/L Carbon Dioxide Level 25 mmol/L Anion Gap 8.0 mmol/L Blood Urea Nitrogen 18 mg/dl Creatinine 0.77 mg/dl Est Creatinine Clear Calc Drug Dose 43.0 ml/min Estimated GFR () 82.2 Estimated GFR (Non- 70.9 BUN/Creatinine Ratio 23.5 Random Glucose 144 mg/dl Calcium Level 8.1 mg/dl (Maria E Vanegas, EDWARDO) Assessment and Plan 86 year old female with DMII, hypothyroidism, HTN admitted with hyponatremia. Hyponatremia - 111 on admission, 124 today - Low serum OSM, and low urine OSM - no evidence of SIADH, likely physiological due to illness - NaCl tablets ordered - Daily prp - urine sodium 17 - FR 1500 ml/day, strict Is&Os - hold on further lasix for now as sodium is reversing at acceptable pace with FR Hypokalemia - replaced Weakness - Likely contributed to by influenza and hyponatremia - PT/OT evals - improving Influenza - Patient declining Tamiflu - Symptomatic management - Sputum culture ordered DM - Hold metformin 1000mg BID - ISS with checks ac/hs HTN/HLD - Continue home meds: metoprolol, simvastatin Hold triamterene/HCTZ Hypothyroidism - Continue levothyroxine VTE ppx - SCDs (Maria E Vanegas ., EDWARDO) i personally examined pt and verified all martin points ekaterina BROOKE feeling better eating well vitals noted nad breathing unlabored no pallor or icterus flu/hyponatremia - imrpovign. continue fluid restriction. no new issues (Rodolfo Lezama D.Becky.)
[2017-07-02 15:09] VITALS: BP 113/66; PULSE 59; TEMP 36.8; O2SAT 93
[2017-07-02] MEDS: SIMVASTATIN 20 MG TAB PO SCH (21:16)
[2017-07-02 23:22] VITALS: BP 116/71; PULSE 59; TEMP 37; O2SAT 98
[2017-07-03] MEDS: LEVOTHYROXINE 112 MCG TAB PO SCH (06:58)
[2017-07-03] MEDS: MULTIVITAMIN TAB PO SCH (07:49)
[2017-07-03] MEDS: METOPROLOL SUCC 50MG EXT REL TAB PO SCH (07:49)
[2017-07-03 07:50] VITALS: BP 157/70; PULSE 59; TEMP 36.6; O2SAT 95
[2017-07-03] MEDS: CALCIUM 600MG + VIT D 400 IU TAB PO SCH (07:50)
[2017-07-03] MEDS: IBUPROFEN 200 MG TAB PO SCH (07:50)
[2017-07-03] MEDS: SODIUM CHLORIDE 1 GM TAB PO SCH (07:50)
[2017-07-03] MEDS: MAGNESIUM OXIDE 400 MG TAB PO SCH (07:50)
[2017-07-03 08:00] VITALS: O2SAT 95
[2017-07-03 08:20] LABS: CALCIUM 8.4 mg/dl (8.5-10.1); CREATININE 0.96 mg/dl (0.60-1.20); POTASSIUM 4.8 mmol/L (3.5-5.1)
[2017-07-03] MEDS: INSULIN ASPART 100 UNITS/ML 3 ML PEN SC SCH ×2 (08:39→11:00)
[2017-07-03] MEDS ORDERED: ZCR20 PO (09:53)
[2017-07-03] MEDS ORDERED: TPRSR50 PO (09:53)
[2017-07-03] MEDS ORDERED: SYN112 PO (09:53)
--- NOTE | 2017-07-03 09:57 | Discharge Instructions ---
Discharge Instructions Date of Service Jul 03, 2017. Admission Reason for Admission: Hyponatremia Discharge Discharge Diagnosis / Problem: hyponatremia, influenza Discharge Goals Goal(s): Improve disease control Activity Recommendations Activity Limitations: resume your previous activity . Instructions / Follow-Up Instructions / Follow-Up Please keep your follow up appointment next week with your primary care provider. Please have your blood drawn tomorrow, results will go to your primary care provider. Please continue to hold on taking your hctz until evaluated by primary care on Friday Current Hospital Diet Patient's current hospital diet: Regular Diet Discharge Diet Recommended Diet: Regular Diet Pending Studies Studies pending at discharge: no Laboratory Results Hemoglobin A1c Test 05/12/17 08:54 Range/Units Estimated Average Glucose 143 mg/dl Hemoglobin A1c 6.6 H 4.5-5.6 % Medical Emergencies . Who to Call and When: Medical Emergencies: If at any time you feel your situation is an emergency, please call 911 immediately. . Non-Emergent Contact Non-Emergency issues call your: Primary Care Provider . . "Provider Documentation" section prepared by Maria E Vanegas. . VTE Core Measure Inpt VTE Proph given/why not?: SCD's
--- NOTE | 2017-07-03 10:08 | Discharge Summary ---
Discharge Summary Date of Service Jul 03, 2017. Discharge Summary Admission Date: Jul 01, 2017 at 03:27 Discharge Date: Jul 03, 2017 Discharge Disposition: Home Principal Diagnosis: Hyponatremia, influenza Problems/Secondary Diagnoses: DMII, hypothyroidism, hypertension Immunizations: Have You Had Influenza Vaccine: Yes History of Tetanus Vaccine?: Yes History of Pneumococcal: Yes History of Hepatitis B Vaccine: Yes Procedures: CHEST ONE VIEW PORTABLE CLINICAL HISTORY: cough, influenza COMPARISON STUDY: 06/28/2017 FINDINGS: The heart is at the upper limits of normal in size. There is no failure. There is no lobar consolidation. There is minor basilar interstitial thickening similar to the preceding study. No pleural effusions are visualized.[ IMPRESSION: No acute findings. Electronically signed by: Erwin Alvarez M.D. 06/30/2017 10:57 PM Medication Reconciliation New Medications: Levothyroxine Sodium (Synthroid) 112 Mcg Tab 112 MCG PO DAILYBB for 30 Days, #30 TAB Metoprolol Succinate (Metoprolol Succinate ER) 50 Mg Tabcr 50 MG PO QAM for 30 Days, #30 DOSE Simvastatin (Simvastatin) 20 Mg Tab 20 MG PO PM for 30 Days, #30 TAB Continued Medications: Calcium/Vitamin D (Os-Carlo 500 Plus D) Tab 1 TAB PO DAILY, TAB Ibuprofen (Advil) 200 Mg Tab 400 MG PO BID, TAB Metformin Hcl (Glucophage) Unknown Strength Tab Unknown Dose PO BID, TAB Multiple Vitamins W/ Minerals (Eye Vitamins) 1 Cap Cap 1 CAP PO DAILY Multivitamin (Multivitamin) Tab 1 TAB PO DAILY, TAB [B/P Med] () 1 DOSE PO DAILY [Cholesterol Med] () 1 DOSE PO QPM Discontinued Medications: Levothyroxine Sodium (Synthroid) Unknown Strength Tab Unknown Dose PO DAILY, TAB Oseltamivir (Tamiflu) 75 Mg Cap 75 MG PO BID, #10 CAP Discharge Exam ROS Constitutional: no chills, aches, sweats or fever Respiratory: no sob,improving cough with light yellow sputum, no wheezing Cardiac: no chest pain, palpitations, edema, orthopnea or lightheadedness GI: no abdominal pain, nausea, vomiting, diarrhea or constipation : no dysuria or hesitancy Extremities: no joint pain or weakness Skin: no rash All other systems reviewed and negative PE General: no distress Eyes: normal inspection, PERLL Respiratory: chest non tender, clear to auscultation, normal breath sounds, no respiratory distress, no accessory muscle use Cardiac: regular rate and rhythm, no rub or gallop, no murmur, no edema, no jvd GI/: active bowel sounds, no abd pain or tenderness, soft, non distended Extremities: normal range of motion, normal strength, non tender Neuro/Psych: alert and oriented x 3, normal mood and affect Skin: normal color, dry Hospital Course 86 year old female with DMII, hypothyroidism, HTN was seen in the ED 2 [employer] and found to be positive for influenza. She was sent home with Tamiflu, but discontinued the medication after 2 doses because the medication made her feel anxious. However, once home patient continued to feel unwell with initially dry , then productive cough of light green sputum and significant weakness. She had diminished appetite, with attempts to eat causing increased nausea. She also felt off balance, but denied dizziness or lightheadedness. Hyponatremia - 111 on admission, 128 today - repeat prp outpatient tomorrow - Low serum OSM, and low urine OSM, urine sodium 17- likely transient SIADH due to illness - NaCl tablets while inpatient but will discontinue upon discharge - FR 1500 ml/day while inpatient, strict Is&Os - held on further lasix after admission as sodium is reversing at acceptable pace with FR - no FR for discharge Hypokalemia - replaced Weakness - Likely contributed to by influenza and hyponatremia - PT/OT evals showed patient was safe for home - much improved at time of discharge with some mild weakness and fatigue Influenza - Patient declining Tamiflu - Symptomatic management - Sputum culture negative DM - Held metformin 1000mg BID - restarted for discharge - ISS with checks ac/hs HTN/HLD - Continue home meds: metoprolol, simvastatin Held triamterene/HCTZ - continue to hold for discharge until reassessed by pcp Hypothyroidism - Continue levothyroxine i personally examined pt and verified all martin points w Jeanne BROOKE feeling better ready to go home, answered pt/family questions to the best of my ability vitals noted nad breathing unlabored no pallor or icterus flu, hyponatremia - improving. stable for home, BMP tomorrow and PCP f/u next week Total Time Spent: Greater than 30 minutes This includes examination of the patient, discharge planning, medication reconciliation, and communication with other providers. Discharge Instructions Please refer to the electronic Patient Visit Report (Discharge Instructions) for additional information. Follow-Up Dr. Patton 07/07 Additional Copies To Denis Patton M.D.
[2017-07-03 11:27] VITALS: BP 157/70; PULSE 59; TEMP 36.6; O2SAT 95
== END 2017-07-03 12:00 | disposition home or self-care (01) | DRG 641 ==
LOC: C.EDB 20:21 → C.MS2W 07-01 03:27 → EDBEDREQ 07-01 03:35 → ENRESERV 07-01 04:02 → C.4E 07-01 10:45
PROVIDERS: ADMIT Student in an Organized Health Care Education/Training Program; ATTEND Family Medicine
DX: E87.1 Hypo-osmolality and hyponatremia (principal); E87.6 Hypokalemia; E11.9 Type 2 diabetes mellitus without complications; J10.1 Influenza due to other identified influenza virus with other respiratory manifestations; E03.9 Hypothyroidism, unspecified; F41.9 Anxiety disorder, unspecified; I10 Essential (primary) hypertension; Z83.3 Family history of diabetes mellitus; Z87.891 Personal history of nicotine dependence; Z88.2 Allergy status to sulfonamides

== ENCOUNTER → 2017-07-04 | Outpatient (CLI) | payer BC ==
[~2017-07-04] MED LIST changes: +B/P MED PO; +CALC500C70 PO; +CHOLESTEROL MED PO; +GLC/500 PO; +IBUP-1050 PO; +MULT-506 PO; +MULTCAP7 PO; -OSEL75CA12 PO; +SYN112 PO; +TPRSR50 PO; +ZCR20 PO
[2017-07-04 09:37] LABS: BASO % 0.3 %; BASO ABS # 0.03 K/uL (0-0.2); EOS % 0.8 %; EOS ABS # 0.09 K/uL (0-0.5); HEMATOCRIT 40.3 % (37-47); HEMOGLOBIN 13.8 g/dL (12.0-16.0); IG# 0.09 K/uL (0.00-0.02); LYMPH % 19.5 %; LYMPH ABS # 2.09 K/uL (1.2-3.4); MEAN CELL VOLUME 90.4 fL (80-100); MEAN CORPUSCULAR HEMOGLOBIN 30.9 pg (25-34); MEAN CORPUSCULAR HGB CONC 34.2 g/dl (32-36); MEAN PLATELET VOLUME 9.2 fL (7.4-10.4); MONO % 7.9 %; MONO ABS # 0.85 K/uL (0.11-0.59); NEUT % 70.7 %; NEUT ABS # 7.56 K/uL (1.4-6.5); PLATELET COUNT 355 K/uL (130-400); RED CELL DISTRIBUTION WIDTH SD 46.6 fL (36.4-46.3); WHITE BLOOD COUNT 10.71 K/uL (4.8-10.8)
[2017-07-04 09:50] LABS: BLOOD UREA NITROGEN 21 mg/dl (7-18); CALCIUM 8.8 mg/dl (8.5-10.1); CARBON DIOXIDE 28 mmol/L (21-32); CREATININE 0.89 mg/dl (0.60-1.20); GLUCOSE 126 mg/dl (70-99); POTASSIUM 4.3 mmol/L (3.5-5.1); SODIUM 128 mmol/L (136-145)
== END | disposition home or self-care (01) ==
LOC: C.LAB1850 07:31
PROVIDERS: ATTEND Internal Medicine
DX: E87.1 Hypo-osmolality and hyponatremia (principal); E87.6 Hypokalemia

== ENCOUNTER → 2017-07-07 | Outpatient (CLI) | payer BC ==
--- NOTE | 2017-07-07 16:09 | DIAGNOSTIC IMAGING REPORT ---
SINUSES MIN 3 VIEWS ROUTINE CLINICAL HISTORY: E11.9 Diabetes [id number] COMPARISON STUDY: FINDINGS: All major sinuses are clear. No significant mucosal thickening. No evidence for bony destructive process. Several benign venous legs of the frontal lobe region. IMPRESSION: Normal sinuses. The above report was generated using voice recognition software. It may contain grammatical, syntax or spelling errors. Electronically signed by: Topher Mckeon M.D. 07/07/2017 4:08 PM Dictated Date/Time: 07/07/2017 4:07 PM
== END | disposition home or self-care (01) ==
LOC: C.RAD1850 15:45
PROVIDERS: ATTEND Internal Medicine
DX: E11.9 Type 2 diabetes mellitus without complications (principal)

== ENCOUNTER → 2017-07-07 | Outpatient (CLI) | payer BC ==
[2017-07-07 10:44] LABS: BASO % 0.3 %; BASO ABS # 0.03 K/uL (0-0.2); EOS % 0.4 %; EOS ABS # 0.05 K/uL (0-0.5); HEMATOCRIT 39.3 % (37-47); HEMOGLOBIN 13.4 g/dL (12.0-16.0); IG# 0.25 K/uL (0.00-0.02); LYMPH % 14.2 %; LYMPH ABS # 1.67 K/uL (1.2-3.4); MEAN CELL VOLUME 90.3 fL (80-100); MEAN CORPUSCULAR HEMOGLOBIN 30.8 pg (25-34); MEAN PLATELET VOLUME 8.2 fL (7.4-10.4); MONO % 9.1 %; MONO ABS # 1.07 K/uL (0.11-0.59); NEUT % 73.9 %; NEUT ABS # 8.65 K/uL (1.4-6.5); PLATELET COUNT 399 K/uL (130-400); RED CELL DISTRIBUTION WIDTH CV 13.6 % (11.5-14.5); WHITE BLOOD COUNT 11.72 K/uL (4.8-10.8)
[2017-07-07 10:49] LABS: MEAN CORPUSCULAR HGB CONC 34.1 g/dl (32-36)
[2017-07-07 11:06] LABS: BLOOD UREA NITROGEN 15 mg/dl (7-18); CALCIUM 9.4 mg/dl (8.5-10.1); CARBON DIOXIDE 27 mmol/L (21-32); CREATININE 1.01 mg/dl (0.60-1.20); GLUCOSE 149 mg/dl (70-99); POTASSIUM 4.2 mmol/L (3.5-5.1); SODIUM 132 mmol/L (136-145)
== END | disposition home or self-care (01) ==
LOC: C.LAB1850 10:22
PROVIDERS: ATTEND Internal Medicine
DX: Z00.00 Encounter for general adult medical examination without abnormal findings (principal); I10 Essential (primary) hypertension; E11.9 Type 2 diabetes mellitus without complications

== ENCOUNTER → 2017-07-31 | Outpatient (CLI) | payer BC ==
[2017-07-31 17:17] LABS: BASO % 0.7 %; BASO ABS # 0.09 K/uL (0-0.2); EOS % 2.4 %; EOS ABS # 0.31 K/uL (0-0.5); HEMATOCRIT 38.5 % (37-47); HEMOGLOBIN 12.7 g/dL (12.0-16.0); IG# 0.07 K/uL (0.00-0.02); LYMPH % 16.9 %; LYMPH ABS # 2.16 K/uL (1.2-3.4); MEAN CELL VOLUME 91.2 fL (80-100); MEAN CORPUSCULAR HEMOGLOBIN 30.1 pg (25-34); MEAN PLATELET VOLUME 8.7 fL (7.4-10.4); MONO % 8.5 %; MONO ABS # 1.09 K/uL (0.11-0.59); NEUT ABS # 9.03 K/uL (1.4-6.5); PLATELET COUNT 460 K/uL (130-400); RED CELL DISTRIBUTION WIDTH CV 14.6 % (11.5-14.5); RED CELL DISTRIBUTION WIDTH SD 48.6 fL (36.4-46.3); WHITE BLOOD COUNT 12.75 K/uL (4.8-10.8)
[2017-07-31 17:41] LABS: BLOOD UREA NITROGEN 22 mg/dl (7-18); CALCIUM 9.2 mg/dl (8.5-10.1); CARBON DIOXIDE 27 mmol/L (21-32); CREATININE 0.76 mg/dl (0.60-1.20); GLUCOSE 109 mg/dl (70-99); POTASSIUM 3.9 mmol/L (3.5-5.1); SODIUM 129 mmol/L (136-145)
== END | disposition home or self-care (01) ==
LOC: C.LAB1850 16:17
PROVIDERS: ATTEND Physician Assistant
DX: E87.1 Hypo-osmolality and hyponatremia (principal); I10 Essential (primary) hypertension

== ENCOUNTER → 2017-08-04 | Outpatient (CLI) | payer BC ==
[2017-08-04 15:45] LABS: BLOOD UREA NITROGEN 19 mg/dl (7-18); CALCIUM 9.4 mg/dl (8.5-10.1); CARBON DIOXIDE 26 mmol/L (21-32); CREATININE 0.78 mg/dl (0.60-1.20); GLUCOSE 100 mg/dl (70-99); POTASSIUM 4.3 mmol/L (3.5-5.1); SODIUM 130 mmol/L (136-145)
== END | disposition home or self-care (01) ==
LOC: C.LAB1850 12:41
PROVIDERS: ATTEND Internal Medicine
DX: I10 Essential (primary) hypertension (principal); E87.1 Hypo-osmolality and hyponatremia

== ENCOUNTER → 2017-08-25 | Outpatient (CLI) | payer BC ==
[~2017-08-25] MED LIST changes: +ATV5 PO; +GLC500 PO; +LEVO112T4 PO; +METO50TA16 PO; +SERT50TA PO; +SIMV20TA2 PO
[2017-08-25 09:33] LABS: BASO % 0.6 %; BASO ABS # 0.07 K/uL (0-0.2); EOS % 2.6 %; HEMATOCRIT 40.3 % (37-47); HEMOGLOBIN 13.7 g/dL (12.0-16.0); IG# 0.07 K/uL (0.00-0.02); LYMPH % 18.1 %; MEAN CELL VOLUME 91.8 fL (80-100); MEAN CORPUSCULAR HEMOGLOBIN 31.2 pg (25-34); MEAN PLATELET VOLUME 9.1 fL (7.4-10.4); MONO % 8.4 %; MONO ABS # 0.98 K/uL (0.11-0.59); NEUT % 69.7 %; PLATELET COUNT 535 K/uL (130-400); RED CELL DISTRIBUTION WIDTH CV 14.4 % (11.5-14.5); RED CELL DISTRIBUTION WIDTH SD 48.5 fL (36.4-46.3); WHITE BLOOD COUNT 11.62 K/uL (4.8-10.8)
[2017-08-25 10:03] LABS: ALT/SGPT 26 U/L (12-78); AST/SGOT 16 U/L (15-37); BLOOD UREA NITROGEN 28 mg/dl (7-18); CALCIUM 9.4 mg/dl (8.5-10.1); CARBON DIOXIDE 28 mmol/L (21-32); CREATININE 0.94 mg/dl (0.60-1.20); GLUCOSE 122 mg/dl (70-99); POTASSIUM 3.9 mmol/L (3.5-5.1); SODIUM 130 mmol/L (136-145)
[2017-08-25 10:14] LABS: CHOLESTEROL 183 mg/dl (0-200); LDL CHOLESTEROL CALCULATED 90 mg/dl
[2017-08-25 10:23] LABS: HEMOGLOBIN A1C 6.1 % (4.5-5.6)
== END | disposition home or self-care (01) ==
LOC: C.LAB1850 08:13
PROVIDERS: ATTEND Internal Medicine
DX: E11.9 Type 2 diabetes mellitus without complications (principal)

== ENCOUNTER → 2017-09-16 | Day surgery (SDC) | payer BC ==
[2017-08-28 08:25] VITALS: Ht 157.5 cm; Wt 55.0 kg
[~2017-09-16] VITALS: Ht 157.5 cm; Wt 55.0 kg
[~2017-09-16] MED LIST changes: +500ML BSS 0.3ML EPI 1:1000PF IRRIG ONE; +ACETAMINOPHEN 325 MG TAB PO PRN; +AMVISC PLUS 0.8ML SYRINGE INT OCU ONE; +ATROPINE SULFATE 0.1 MG/ML 5ML SYR IV PRN; -B/P MED PO; +BSS FLUSH ONE; -CHOLESTEROL MED PO; +EpHEDrine SULFATE INJ 50 MG/ML AMP IV PRN; +EpINEphrine INJ 1MG/ML AMP 1 MG/ML AMP ONE; -GLC/500 PO; +LACTATED RINGER'S 1000ML 500 ML IV SCH; +LIDOCAINE 3.5% OPH GEL PER APPLICATION CHARGE ONE; +LIDOCAINE HCL 1% MPF 2 ML VIAL ONE; +MIDAZOLAM HCL 1 MG/ML 2ML VIAL ONE; +OCUCOAT 1 ML SOLN IO ONE; +PHENYLEPHRINE HCL 10% OP SOLN PER DROP CHARGE OPR SCH; +POVIDONE-IODINE OP SOLN 30 ML BTL ONE; +PROPARACAINE 0.5% OP SOLN PER DROP CHARGE OPR SCH; -SYN112 PO; +TOBRAMYCIN/DEXAMETHASONE OPH OINT PER APPLN CHARGE ONE; -TPRSR50 PO; -ZCR20 PO
[2017-09-16] MEDS: PHENYLEPHRINE HCL 2.5% OP SOLN PER DROP CHARGE OPR SCH ×2 (07:24→07:29)
[2017-09-16] MEDS: TROPICAMIDE 1% OP SOLN PER DROP CHARGE OPR SCH ×2 (07:25→07:30)
[2017-09-16] MEDS: CYCLOPENTOLATE HCL 1% OP SOLN PER DROP CHARGE OPR SCH ×2 (07:26→07:31)
[2017-09-16] MEDS: KETOROLAC 0.5% OP SOLN PER DROP CHARGE OPR SCH ×2 (07:27→07:32)
[2017-09-16] MEDS: GATIFLOXACIN OP SOLN PER DROP CHARGE OPR SCH ×2 (07:28→07:35)
--- NOTE | 2017-09-16 07:44 | History & Physical Bridge - SC ---
H&P Re-Evaluation Bridge Note: I have examined the patient, reviewed the History & Physical and in the interval since the performance of the History & Physical I have noted the following changes of clinical significance: Diagnosis: Right Cataract Procedure: Right Cataract Removal with Lens Implant No changes noted
--- NOTE | 2017-09-16 08:25 | [facility] Operative Report ---
Operative Report Date of Service Sep 16, 2017. Operative Report 1. PREOPERATIVE DIAGNOSIS: Cataract of the right eye. 2. POSTOPERATIVE DIAGNOSIS: Same. 3. PROCEDURE: Phacoemulsification with intraocular lens implantation of the right eye. SURGEON: Dr. Reuben Lord. ANESTHESIA: Topical Lidocaine gel, 1% Non- Preserved intracameral Lidocaine, and monitored intravenous sedation. INDICATIONS FOR THE PROCEDURE: The patient is a 86 - year-old female with a history of cataract of the right eye causing significant visual impairment. The details of the proposed procedure were explained to the patient who asked appropriate questions and following discussion of all risks, benefits and alternatives agreed to have the procedure done. 4. OPERATION AND FINDINGS: DESCRIPTION OF PROCEDURE: After informed consent was obtained, the patient was brought to the [facility] at [facility]. The patient was placed in a supine position and then the right eye was prepped and draped in the usual sterile fashion for intraocular surgery. A drop of topical Lidocaine gel was placed in the operative eye. A wire lid speculum was then placed in the fornices. A corneal paracentesis was then created temporally. The Non-Preserved Lidocaine was then instilled into the anterior chamber. The anterior chamber was then pressurized with viscoelastic. A 2.0 mm clear corneal incision was then created temporally. A cystotome was inserted into the anterior chamber and used to create a tear in the anterior lens capsule. This capsular tear was then used to create a small flap and the flap was dragged in a counterclockwise direction in order to create a continuous curvilinear capsulorrhexis. Hydrodissection was accomplished with balanced salt solution. Phacoemulsification of the lens nucleus was then performed in a standard [id number] technique. The phaco time was 31 seconds with an average power of 16 %. The remaining cortical material was removed using irrigation aspiration. The capsular bag was then filled with viscoelastic. A [employer] MI60L +25.0 diopters lens was then loaded into the injector and injected into the capsular bag. The remaining viscoelastic was removed with the irrigation aspiration handpiece. The wound was hydrated and then checked and found to be watertight. The intraocular pressure was checked and found to be adequate. The wire lid speculum was removed and the patient's face was cleaned and dried. TobraDex ointment was placed in the inferior fornix. The patient was discharged to the Recovery Room having tolerated the procedure well. There were no complications. The patient will be seen tomorrow in the office for follow-up. I attest to the content of the Intraoperative Record and any orders documented therein. Any exceptions are noted below.
--- NOTE | 2017-09-16 08:25 | Discharge Instructions-SurgCtr ---
Discharge Instructions Date of Service Sep 16, 2017. Visit Reason for Visit: Cataract Right Eye Discharge Discharge Diagnosis / Problem: cataract Discharge Goals Goal(s): Improve function Activity Recommendations Activity Limitations: per Instructions/Follow-up section Anesthesia . Post Anesthesia Instructions: If you have had General Anesthesia or IV Sedation: * Do not drive today. * Resume driving when surgeon permits. * Do not make important decisions or sign legal documents today. * Call surgeon for: 1. Temperature elevations greater than 101 degrees F. 2. Uncontrollable pain. 3. Excessive bleeding. 4. Persistent nausea and vomiting. 5. Medication intolerance (nausea, vomiting or rash). * For nausea and vomiting use only clear liquids such as: tea, soda, bouillon until nausea subsides, then gradually increase diet as tolerated. * If you have any concerns or questions, call your surgeon's office. If physician is unavailable and it is an emergency, call 911 or go to the nearest emergency room. . Diet Recommendations Home Diet: resume previous diet Procedures Procedures Performed: Right Cataract Phacoemulsification With Intraocular Lens Implant Pending Studies Studies pending at discharge: no Medical Emergencies . Who to Call and When: Medical Emergencies: If at any time you feel your situation is an emergency, please call 911 immediately. . Non-Emergent Contact Non-Emergency issues call your: [employer] . . "Provider Documentation" section prepared by Reuben Lord. .
[2017-09-16 08:27] VITALS: TEMP 36.7
[2017-09-16 09:01] VITALS: BP 132/59; PULSE 59; O2SAT 86
--- NOTE | 2017-09-16 09:07 | Anesthesia Progress Nt - [facility] ---
Anesthesia Post Op Note Date & Time Sep 16, 2017 at 09:07 Vital Signs Pain Intensity: 0 Vital Signs Past 12 Hours Date Time Temp Pulse Resp B/P (MAP) Pulse Ox O2 Delivery O2 Flow Rate FiO2 09/16/17 09:01 59 20 132/59 (83) 86 Room Air 09/16/17 08:27 36.7 52 16 122/59 (80) 96 Room Air 09/16/17 07:12 37.0 60 18 169/82 (111) 98 Room Air Notes Mental Status: alert / awake / arousable, participated in evaluation Pt Amnestic to Procedure: Yes Nausea / Vomiting: adequately controlled Pain: adequately controlled Airway Patency, RR, SpO2: stable & adequate BP & HR: stable & adequate Hydration State: stable & adequate Anesthetic Complications: no major complications apparent
== END | disposition home or self-care (01) ==
LOC: X.SURG 06:48
PROVIDERS: ATTEND Ophthalmology
DX: E11.36 Type 2 diabetes mellitus with diabetic cataract (principal); H26.9 Unspecified cataract; I10 Essential (primary) hypertension; E78.00 Pure hypercholesterolemia, unspecified; E03.9 Hypothyroidism, unspecified; Z88.2 Allergy status to sulfonamides; Z88.0 Allergy status to penicillin; Z79.84 Long term (current) use of oral hypoglycemic drugs; Z79.899 Other long term (current) drug therapy

== ENCOUNTER → 2017-09-27 | Outpatient (CLI) | payer BC ==
[~2017-09-27] MED LIST changes: -500ML BSS 0.3ML EPI 1:1000PF IRRIG ONE; -ACETAMINOPHEN 325 MG TAB PO PRN; -AMVISC PLUS 0.8ML SYRINGE INT OCU ONE; -ATROPINE SULFATE 0.1 MG/ML 5ML SYR IV PRN; -BSS FLUSH ONE; -EpHEDrine SULFATE INJ 50 MG/ML AMP IV PRN; -EpINEphrine INJ 1MG/ML AMP 1 MG/ML AMP ONE; -LACTATED RINGER'S 1000ML 500 ML IV SCH; -LIDOCAINE 3.5% OPH GEL PER APPLICATION CHARGE ONE; -LIDOCAINE HCL 1% MPF 2 ML VIAL ONE; -MIDAZOLAM HCL 1 MG/ML 2ML VIAL ONE; -OCUCOAT 1 ML SOLN IO ONE; -PHENYLEPHRINE HCL 10% OP SOLN PER DROP CHARGE OPR SCH; -POVIDONE-IODINE OP SOLN 30 ML BTL ONE; -PROPARACAINE 0.5% OP SOLN PER DROP CHARGE OPR SCH; -TOBRAMYCIN/DEXAMETHASONE OPH OINT PER APPLN CHARGE ONE; +WATER PILL PO
[2017-09-27 10:36] LABS: BLOOD UREA NITROGEN 31 mg/dl (7-18); CALCIUM 10.1 mg/dl (8.5-10.1); CARBON DIOXIDE 29 mmol/L (21-32); CREATININE 0.96 mg/dl (0.60-1.20); GLUCOSE 127 mg/dl (70-99); POTASSIUM 4.2 mmol/L (3.5-5.1); SODIUM 132 mmol/L (136-145)
[2017-09-27 11:32] LABS: HEMOGLOBIN A1C 6.2 % (4.5-5.6)
== END | disposition home or self-care (01) ==
LOC: C.LAB1850 09:21
PROVIDERS: ATTEND Internal Medicine
DX: E11.9 Type 2 diabetes mellitus without complications (principal)

== ENCOUNTER → 2017-10-02 | Day surgery (SDC) | payer BC ==
[2017-09-23 10:54] VITALS: Ht 157.5 cm; Wt 55.0 kg
[~2017-10-02] VITALS: Ht 157.5 cm; Wt 55.0 kg
[~2017-10-02] MED LIST changes: +500ML BSS 0.3ML EPI 1:1000PF IRRIG ONE; +ACETAMINOPHEN 325 MG TAB PO PRN; +AMVISC PLUS 0.8ML SYRINGE INT OCU ONE; +ATROPINE SULFATE 0.1 MG/ML 5ML SYR IV PRN; +BSS FLUSH ONE; +EpINEphrine INJ 1MG/ML AMP 1 MG/ML AMP ONE; +LACTATED RINGER'S 1000ML 500 ML IV SCH; +LIDOCAINE 3.5% OPH GEL PER APPLICATION CHARGE ONE; +LIDOCAINE HCL 1% MPF 2 ML VIAL ONE; +MIDAZOLAM HCL 1 MG/ML 2ML VIAL ONE; +OCUCOAT 1 ML SOLN IO ONE; +PHENYLEPHRINE HCL 10% OP SOLN PER DROP CHARGE OPL SCH; +POVIDONE-IODINE OP SOLN 30 ML BTL ONE; +PROPARACAINE 0.5% OP SOLN PER DROP CHARGE OPL SCH; +TOBRAMYCIN/DEXAMETHASONE OPH OINT PER APPLN CHARGE ONE
[2017-10-02] MEDS: PHENYLEPHRINE HCL 2.5% OP SOLN PER DROP CHARGE OPL SCH ×2 (06:33→06:38)
[2017-10-02] MEDS: TROPICAMIDE 1% OP SOLN PER DROP CHARGE OPL SCH ×2 (06:34→06:39)
[2017-10-02] MEDS: CYCLOPENTOLATE HCL 1% OP SOLN PER DROP CHARGE OPL SCH ×2 (06:35→06:40)
[2017-10-02] MEDS: KETOROLAC 0.5% OP SOLN PER DROP CHARGE OPL SCH ×2 (06:36→06:41)
[2017-10-02] MEDS: GATIFLOXACIN OP SOLN PER DROP CHARGE OPL SCH ×2 (06:37→06:47)
--- NOTE | 2017-10-02 07:00 | History & Physical Bridge - [place] ---
H&P Re-Evaluation Bridge Note: I have examined the patient, reviewed the History & Physical and in the interval since the performance of the History & Physical I have noted the following changes of clinical significance: Diagnosis: Left Cataract Procedure: Left Cataract Removal with Lens Implant No changes noted
--- NOTE | 2017-10-02 07:22 | Discharge Instructions-SurgCtr ---
Discharge Instructions Date of Service October 02, 2017. Visit Reason for Visit: Cataract Left Eye Discharge Discharge Diagnosis / Problem: cataract Discharge Goals Goal(s): Improve function Medications Stopped Medications Name(s): metformin-last dose 09/30 Activity Recommendations Activity Limitations: per Instructions/Follow-up section Anesthesia . Post Anesthesia Instructions: If you have had General Anesthesia or IV Sedation: * Do not drive today. * Resume driving when surgeon permits. * Do not make important decisions or sign legal documents today. * Call surgeon for: 1. Temperature elevations greater than 101 degrees F. 2. Uncontrollable pain. 3. Excessive bleeding. 4. Persistent nausea and vomiting. 5. Medication intolerance (nausea, vomiting or rash). * For nausea and vomiting use only clear liquids such as: tea, soda, bouillon until nausea subsides, then gradually increase diet as tolerated. * If you have any concerns or questions, call your surgeon's office. If physician is unavailable and it is an emergency, call 911 or go to the nearest emergency room. . Diet Recommendations Home Diet: resume previous diet Procedures Procedures Performed: Left Cataract Phacoemulsification With Intraocular Lens Implant Pending Studies Studies pending at discharge: no Medical Emergencies . Who to Call and When: Medical Emergencies: If at any time you feel your situation is an emergency, please call 911 immediately. . Non-Emergent Contact Non-Emergency issues call your: [employer] . . "Provider Documentation" section prepared by Reuben Lord. .
--- NOTE | 2017-10-02 07:22 | [facility] Operative Report ---
Operative Report Date of Service October 02, 2017. Operative Report 1. PREOPERATIVE DIAGNOSIS: Cataract of the left eye. 2. POSTOPERATIVE DIAGNOSIS: Same. 3. PROCEDURE: Phacoemulsification with intraocular lens implantation of the left eye. SURGEON: Dr. Reuben Lord. ANESTHESIA: Topical Lidocaine gel, 1% Non- Preserved intracameral Lidocaine, and monitored intravenous sedation. INDICATIONS FOR THE PROCEDURE: The patient is a 86 - year-old female with a history of cataract of the left eye causing significant visual impairment. The details of the proposed procedure were explained to the patient who asked appropriate questions and following discussion of all risks, benefits and alternatives agreed to have the procedure done. 4. OPERATION AND FINDINGS: DESCRIPTION OF PROCEDURE: After informed consent was obtained, the patient was brought to the Operating Room at the [facility]. The patient was placed in a supine position and then the left eye was prepped and draped in the usual sterile fashion for intraocular surgery. A drop of topical Lidocaine gel was placed in the operative eye. A wire lid speculum was then placed in the fornices. A corneal paracentesis was then created temporally. The Non-Preserved Lidocaine was then instilled into the anterior chamber. The anterior chamber was then pressurized with viscoelastic. A 2.0 mm clear corneal incision was then created temporally. A cystotome was inserted into the anterior chamber and used to create a tear in the anterior lens capsule. This capsular tear was then used to create a small flap and the flap was dragged in a counterclockwise direction in order to create a continuous curvilinear capsulorrhexis. Hydrodissection was accomplished with balanced salt solution. Phacoemulsification of the lens nucleus was then performed in a standard [id number] technique. The phaco time was 25 seconds with an average power of 13 %. The remaining cortical material was removed using irrigation aspiration. The capsular bag was then filled with viscoelastic. A [employer] MI60L +25.5 diopters lens was then loaded into the injector and injected into the capsular bag. The remaining viscoelastic was removed with the irrigation aspiration handpiece. The wound was hydrated and then checked and found to be watertight. The intraocular pressure was checked and found to be adequate. The wire lid speculum was removed and the patient's face was cleaned and dried. TobraDex ointment was placed in the inferior fornix. The patient was discharged to the Recovery Room having tolerated the procedure well. There were no complications. The patient will be seen tomorrow in the office for follow-up. I attest to the content of the Intraoperative Record and any orders documented therein. Any exceptions are noted below.
[2017-10-02 07:28] VITALS: TEMP 36.4
--- NOTE | 2017-10-02 07:38 | Anesthesia Progress Nt - [facility] ---
Anesthesia Post Op Note Date & Time October 02, 2017 at 07:38 Vital Signs Pain Intensity: 0 Vital Signs Past 12 Hours Date Time Temp Pulse Resp B/P (MAP) Pulse Ox O2 Delivery O2 Flow Rate FiO2 10/02/17 07:28 36.4 52 16 124/63 (83) 96 Room Air 10/02/17 06:27 36.3 61 18 131/67 (88) 95 Room Air Notes Mental Status: alert / awake / arousable, participated in evaluation Pt Amnestic to Procedure: Yes Nausea / Vomiting: adequately controlled Pain: adequately controlled Airway Patency, RR, SpO2: stable & adequate BP & HR: stable & adequate Hydration State: stable & adequate Anesthetic Complications: no major complications apparent
[2017-10-02 07:47] VITALS: BP 135/71; PULSE 55; O2SAT 97
== END | disposition home or self-care (01) ==
LOC: X.SURG 06:12
PROVIDERS: ATTEND Ophthalmology
DX: H26.9 Unspecified cataract (principal); I10 Essential (primary) hypertension; E78.00 Pure hypercholesterolemia, unspecified; E11.9 Type 2 diabetes mellitus without complications; E03.9 Hypothyroidism, unspecified; M81.0 Age-related osteoporosis without current pathological fracture; Z85.3 Personal history of malignant neoplasm of breast; F32.9 Major depressive disorder, single episode, unspecified; Z81.8 Family history of other mental and behavioral disorders; Z83.3 Family history of diabetes mellitus; Z82.49 Family history of ischemic heart disease and other diseases of the circulatory system; Z83.49 Family history of other endocrine, nutritional and metabolic diseases; Z79.84 Long term (current) use of oral hypoglycemic drugs; Z79.899 Other long term (current) drug therapy; Z88.0 Allergy status to penicillin; Z88.2 Allergy status to sulfonamides

== ENCOUNTER 2021-10-15 09:13 | Inpatient (IN) ==
--- NOTE | 2021-10-15 09:41 | Emergency Department Note ---
Impression & Plan Hyponatremia, COVID-19 ADMIT ED Provider Note HPI: The patient is an 89-year-old female who presents to the emergency department with a chief complaint of urinary frequency. Patient states that she also feels that her memory has been impaired recently, she states that she needs to look at the calendar multiple times to remember when she has appointments. Despite thi s, on arrival the patient gives me a coherent history, she is alert and oriented x3, she denies any abdominal pain, denies any chest pain or shortness of breath. She is nontoxic-appearing on my initial assessment she is conversational and alert. She is otherwise in no acute distress on my initial evaluation. Patient is hemodynamically stable on arrival. ROS: -: Urinary frequency -Neuro: Patient states concern for worsening memory loss *10 point review systems was conducted and is otherwise negative unless stated above *Outpatient medications and allergy history reviewed PE: General: Alert, NAD, frail-appearing HEENT: Normocephalic, atraumatic Eyes: Extraocular eye movement is intact, no scleral erythema Pulmonary: Clear to auscultation bilaterally, no wheezing Cardio: Regular rate and rhythm GI: Abdomen is soft, nontender : No suprapubic tenderness MSK: No evidence of trauma or malformation of the extremities, no edema Skin: No evidence of rash Neuro: Alert, no focal deficits Psychiatric: Cooperative secured entrance monitor: - An order was placed for continuous cardiac monitoring - Patient was noted to be in sinus rhythm with rate of 62 EKG: Rate: 58 Rhythm: Sinus bradycardia Intervals: Within normal limits ST changes: No ST elevation Time: 0929 Medical Decision Making: Presented to the emergency department with multiple issues, states that she has had some urinary frequency lately, states she is also had some nonspecific memory issues, she is alert and oriented on arrival, she otherwise appears in no acute distress on my initial evaluation. 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 CT imaging of the head was obtained given the patient's complaint of "fog" and memory issues, this does not show any evidence of any intracranial bleeding. I discussed the above findings with the on-call hospitalist, given her history of SIADH associated with viral infection, will hold off on any IV fluids at this time. Patient has been mentating well on my exam here in the ED, she does complain of some nonspecific memory issues, unclear if this could be related to COVID-19 infection as COVID-19 testing was obtained and did return positive, could also be related to acute on chronic hyponatremia. Patient will be admitted to a telemetry bed for further management to the hospitalist service for acute hyponatremia and COVID-19 infection. Diagnosis: 1. Hyponatremia 2. Hypochloremia 3. Memory issues 4. 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 SNHL (sensorineural hearing loss) Surgical History History of dilation and curettage History of hysterectomy History of mastectomy History of tonsillectomy History of tooth extraction Family History Family/Other Depression Diabetes Heart disease Hypertension Hypercholesteremia Thyroid disorder Other Breast cancer Family history non-contributory Denies family history of Ovarian cancer Prostate cancer Myocardial infarction Colorectal cancer Social History Smoking Status: Former smoker Age Started Using Tobacco: 17; Age Quit Using Tobacco: 45; Second Hand Exposure: No; Hx Alcohol Use: No Hx Substance Use: No Preferred Language: Welsh Visual Impairment: No Limitations Hearing Ability: Normal marital status: / current occupational status: retired Feels Safe at Home: Yes Dental Care, Regularly: Yes Physical Activity Frequency: Daily Seatbelt Use: always Allergies Allergies Allergy/AdvReac Type Severity Reaction Status Date / Time Sulfa (Sulfonamide Allergy Intermediate hives Verified 06/28/21 12:33 Antibiotics) Penicillins Allergy Unknown HIVES Verified 06/28/21 12:33 blue dye AdvReac Mild vomiting Verified 06/28/21 12:33 oseltamivir AdvReac Mild vomiting Verified 06/28/21 12:33 Home Meds Home Medications Medication Instructions Recorded Confirmed sertraline 50 mg tablet 50 mg PO DAILY tab 02/02/19 06/28/21 acetaminophen 500 mg tablet 1,000 mg PO BID tab 11/08/19 06/28/21 (Tylenol Extra Strength) calcium carbonate-vitamin D3 1 tab PO BID 02/08/20 06/28/21 [Calcium 600 with Vitamin D3] xkdpkyrdsjoa-Kb-wzjb-minerals 1 tab PO DAILY 02/08/20 06/28/21 [Women's Daily Multivitamin] vit C 250 mg-vit E 90 mg-zinc 40 1 tab PO BID 02/08/20 06/28/21 mg-copper 1 bb-zpbwlg-dcrwbf capsule (PreserVision AREDS-2) Previous Rx's Medication Instructions Recorded metoprolol succinate 50 mg 50 mg PO DAILY #90 tab 11/14/20 tablet,extended release 24 hr metformin 1,000 mg tablet 1,000 mg PO BID #180 tab 03/31/21 triamterene 37.5 1 cap PO DAILY #90 cap 03/31/21 mg-hydrochlorothiazide 25 mg capsule levothyroxine 112 mcg capsule 112 mcg PO DAILY #90 cap 05/09/21 simvastatin 20 mg tablet 20 mg PO QPM #90 tab 05/29/21 nirmatrelvir 300 mg (150 mg x See Rx Instructions PO .COMPLEX 09/27/21 2)-ritonavir 100 mg tablet (EUA) #30 tab (Paxlovid 300 mg () Results & Data (ED) Vital Signs Vital Signs - 24 hr 10/15/21 09:09 10/15/21 09:39 10/15/21 10:09 Temperature 36.4 C L Temperature Source Oral Pulse Rate 60 Pulse Rate [Left Radial] Pulse Rhythm Regular Respiratory Rate 16 Respiratory Effort / Characteristics Non-Labored Non-Labored Spontaneous Non-Labored Spontaneous Respiratory Depth Normal Respiratory Pattern Blood Pressure 170/71 H Blood Pressure [Left Arm] Blood Pressure Mean 104 Blood Pressure Mean [Left Arm] Blood Pressure Position [Left Arm] Pulse Oximetry 94 Oxygen Delivery Method Room Air Sepsis Recent Fever Within 48 Hours No Sepsis New/Unexplained Change in Mental Status N/A Sepsis Action Taken by Nursing No Action Required 10/15/21 10:30 10/15/21 11:00 10/15/21 12:41 Temperature Temperature Source Pulse Rate Pulse Rate [Left Radial] 64 Pulse Rhythm Respiratory Rate 20 Respiratory Effort / Characteristics Non-Labored Spontaneous Non-Labored Non-Labored Respiratory Depth Normal Respiratory Pattern Regular Blood Pressure Blood Pressure [Left Arm] 166/89 H Blood Pressure Mean Blood Pressure Mean [Left Arm] 114 Blood Pressure Position [Left Arm] Lying Pulse Oximetry 95 Oxygen Delivery Method Room Air Sepsis Recent Fever Within 48 Hours Sepsis New/Unexplained Change in Mental Status Sepsis Action Taken by Nursing 10/15/21 12:42 Temperature Temperature Source Pulse Rate Pulse Rate [Left Radial] Pulse Rhythm Respiratory Rate Respiratory Effort / Characteristics Respiratory Depth Respiratory Pattern Blood Pressure Blood Pressure [Left Arm] Blood Pressure Mean Blood Pressure Mean [Left Arm] Blood Pressure Position [Left Arm] Pulse Oximetry 95 Oxygen Delivery Method Room Air Sepsis Recent Fever Within 48 Hours Sepsis New/Unexplained Change in Mental Status Sepsis Action Taken by Nursing Laboratory Data Result diagrams: 10/15/21 09:27 10/15/21 09:27 Lab Results 10/15/21 10/15/21 10/15/21 Range/Units 09:27 09:27 09:27 WBC 13.11 H (4.8-10.8) K/uL RBC 4.16 L (4.2-5.4) M/uL Hgb 13.5 (12.0-16.0) g/dL Hct 37.9 (37-47) % MCV 91.1 (80-100) fL MCH 32.5 (25-34) pg MCHC 35.6 (32-36) g/dL RDW Std Deviation 43.6 (36.4-46.3) fL RDW Coeff of Bernabe 13.1 (11.5-14.5) % Plt Count 471 H (130-400) K/uL MPV 8.4 (7.4-10.4) fL Immature Gran % (Auto) 1.1 % Neut % (Auto) 74.3 % Lymph % (Auto) 15.9 % [place] % (Auto) 8.0 % Eos % (Auto) 0.5 % Baso % (Auto) 0.2 % Neut # (Auto) 9.73 H (1.4-6.5) K/uL Lymph # (Auto) 2.09 (1.2-3.4) K/uL [place] # (Auto) 1.05 H (0.11-0.59) K/uL Eos # (Auto) 0.07 (0-0.5) K/uL Baso # (Auto) 0.02 (0-0.2) K/uL Immature Gran # (Auto) 0.15 H (0.00-0.02) K/uL PT 10.6 (9.0-12.0) Seconds INR 1.0 (0.9-1.1) APTT 28.3 (21.0-31.0) Seconds PTT Ratio 1.0 Sodium 122 L (136-145) mmol/L Potassium 3.7 (3.5-5.1) mmol/L Chloride 85 L (98-107) mmol/L Carbon Dioxide 25 (21-32) mmol/L Anion Gap 12 H (3-11) BUN 20 (6-23) mg/dl Creatinine 0.69 (0.6-1.2) mg/dl Est Cr Clr Drug Dosing 48.8 ml/min Est GFR ( Amer) 90.1 ml/min Est GFR (Non-Af Amer) 77.7 ml/min BUN/Creatinine Ratio 29.0 H (10-20) Glucose 118 H (70-99(Fasting)) mg/dl Lactate (0.4-2.0) mmol/L Calcium 9.6 (8.5-10.1) mg/dl Magnesium 1.6 L (1.7-2.4) mg/dl Total Bilirubin 1.0 (0.2-1.0) mg/dl AST 18 (13-39) U/L ALT 13 (7-52) U/L Alkaline Phosphatase 87 (34-104) U/L Total Protein 6.6 (6.0-8.3) gm/dl Albumin 4.2 (3.4-5.0) gm/dl Globulin 2.4 L (2.5-4.0) gm/dl Albumin/Globulin Ratio 1.8 (0.9-2) Procalcitonin (0-0.5) ng/ml Urine Color Urine Appearance (Clear) Urine pH (4.5-7.5) Ur Specific [place] (1.000-1.030) Urine Protein (Negative) Urine Glucose (UA) (Negative) Urine Ketones (Negative) Urine Blood (Negative) Urine Nitrite (Negative) Urine Bilirubin (Negative) Urine Urobilinogen (Negative) Ur Leukocyte Esterase (Negative) Urine WBC (Auto) (0-5) /hpf Urine RBC (Auto) (0-4) /hpf U Hyaline Cast (Auto) (0-5) /lpf U Epithel Cells (Auto) (0-5) /lpf Urine Bacteria (Auto) (Negative) SARS-CoV-2, RNA, NAAT (NEGATIVE) 10/15/21 10/15/21 10/15/21 Range/Units 09:27 09:33 09:46 WBC (4.8-10.8) K/uL RBC (4.2-5.4) M/uL Hgb (12.0-16.0) g/dL Hct (37-47) % MCV (80-100) fL MCH (25-34) pg MCHC (32-36) g/dL RDW Std Deviation (36.4-46.3) fL RDW Coeff of Bernabe (11.5-14.5) % Plt Count (130-400) K/uL MPV (7.4-10.4) fL Immature Gran % (Auto) % Neut % (Auto) % Lymph % (Auto) % [place] % (Auto) % Eos % (Auto) % Baso % (Auto) % Neut # (Auto) (1.4-6.5) K/uL Lymph # (Auto) (1.2-3.4) K/uL [place] # (Auto) (0.11-0.59) K/uL Eos # (Auto) (0-0.5) K/uL Baso # (Auto) (0-0.2) K/uL Immature Gran # (Auto) (0.00-0.02) K/uL PT (9.0-12.0) Seconds INR (0.9-1.1) APTT (21.0-31.0) Seconds PTT Ratio Sodium (136-145) mmol/L Potassium (3.5-5.1) mmol/L Chloride (98-107) mmol/L Carbon Dioxide (21-32) mmol/L Anion Gap (3-11) BUN (6-23) mg/dl Creatinine (0.6-1.2) mg/dl Est Cr Clr Drug Dosing ml/min Est GFR ( Amer) ml/min Est GFR (Non-Af Amer) ml/min BUN/Creatinine Ratio (10-20) Glucose (70-99(Fasting)) mg/dl Lactate 0.8 (0.4-2.0) mmol/L Calcium (8.5-10.1) mg/dl Magnesium (1.7-2.4) mg/dl Total Bilirubin (0.2-1.0) mg/dl AST (13-39) U/L ALT (7-52) U/L Alkaline Phosphatase (34-104) U/L Total Protein (6.0-8.3) gm/dl Albumin (3.4-5.0) gm/dl Globulin (2.5-4.0) gm/dl Albumin/Globulin Ratio (0.9-2) Procalcitonin < 0.05 (0-0.5) ng/ml Urine Color Yellow Urine Appearance Cloudy A (Clear) Urine pH 7.0 (4.5-7.5) Ur Specific [place] 1.014 (1.000-1.030) Urine Protein 2+ H (Negative) Urine Glucose (UA) Negative (Negative) Urine Ketones Trace H (Negative) Urine Blood 2+ H (Negative) Urine Nitrite Negative (Negative) Urine Bilirubin Negative (Negative) Urine Urobilinogen Negative (Negative) Ur Leukocyte Esterase 3+ H (Negative) Urine WBC (Auto) >30 H (0-5) /hpf Urine RBC (Auto) 5-10 H (0-4) /hpf U Hyaline Cast (Auto) 0 (0-5) /lpf U Epithel Cells (Auto) 0-5 (0-5) /lpf Urine Bacteria (Auto) 2+ H (Negative) SARS-CoV-2, RNA, NAAT (NEGATIVE) 10/15/21 Range/Units 11:40 WBC (4.8-10.8) K/uL RBC (4.2-5.4) M/uL Hgb (12.0-16.0) g/dL Hct (37-47) % MCV (80-100) fL MCH (25-34) pg MCHC (32-36) g/dL RDW Std Deviation (36.4-46.3) fL RDW Coeff of Bernabe (11.5-14.5) % Plt Count (130-400) K/uL MPV (7.4-10.4) fL Immature Gran % (Auto) % Neut % (Auto) % Lymph % (Auto) % [place] % (Auto) % Eos % (Auto) % Baso % (Auto) % Neut # (Auto) (1.4-6.5) K/uL Lymph # (Auto) (1.2-3.4) K/uL [place] # (Auto) (0.11-0.59) K/uL Eos # (Auto) (0-0.5) K/uL Baso # (Auto) (0-0.2) K/uL Immature Gran # (Auto) (0.00-0.02) K/uL PT (9.0-12.0) Seconds INR (0.9-1.1) APTT (21.0-31.0) Seconds PTT Ratio Sodium (136-145) mmol/L Potassium (3.5-5.1) mmol/L Chloride (98-107) mmol/L Carbon Dioxide (21-32) mmol/L Anion Gap (3-11) BUN (6-23) mg/dl Creatinine (0.6-1.2) mg/dl Est Cr Clr Drug Dosing ml/min Est GFR ( Amer) ml/min Est GFR (Non-Af Amer) ml/min BUN/Creatinine Ratio (10-20) Glucose (70-99(Fasting)) mg/dl Lactate (0.4-2.0) mmol/L Calcium (8.5-10.1) mg/dl Magnesium (1.7-2.4) mg/dl Total Bilirubin (0.2-1.0) mg/dl AST (13-39) U/L ALT (7-52) U/L Alkaline Phosphatase (34-104) U/L Total Protein (6.0-8.3) gm/dl Albumin (3.4-5.0) gm/dl Globulin (2.5-4.0) gm/dl Albumin/Globulin Ratio (0.9-2) Procalcitonin (0-0.5) ng/ml Urine Color Urine Appearance (Clear) Urine pH (4.5-7.5) Ur Specific [place] (1.000-1.030) Urine Protein (Negative) Urine Glucose (UA) (Negative) Urine Ketones (Negative) Urine Blood (Negative) Urine Nitrite (Negative) Urine Bilirubin (Negative) Urine Urobilinogen (Negative) Ur Leukocyte Esterase (Negative) Urine WBC (Auto) (0-5) /hpf Urine RBC (Auto) (0-4) /hpf U Hyaline Cast (Auto) (0-5) /lpf U Epithel Cells (Auto) (0-5) /lpf Urine Bacteria (Auto) (Negative) SARS-CoV-2, RNA, NAAT POSITIVE A* (NEGATIVE) Administered Medications Discontinued Medications Sodium Chloride (Nss) 500 mls @ 999 mls/hr IV .Q31M ONE Stop: 10/15/21 11:42 Last Infusion: 10/15/21 12:35 Dose: 0 mls/hr Documented by: [id number] Admin: 10/15/21 11:43 Dose: 999 mls/hr Documented by: [id number] Ceftriaxone Sodium (Rocephin) 1,000 mg in 50 mls @ 100 mls/hr IV NOW STA Stop: 10/15/21 11:45 Last Infusion: 10/15/21 12:35 Dose: 0 mls/hr Documented by: [id number] Admin: 10/15/21 11:43 Dose: 100 mls/hr Documented by: [id number] Imaging Data Radiologist's Impression: Chest X-Ray 10/15/21 09:39 XR chest 1V portable CLINICAL HISTORY: SEPSIS TECHNIQUE: Single frontal radiograph of the chest was obtained. Comparison: Comparison is made to chest radiograph 06/30/2017 FINDINGS: No lines and tubes are seen. The cardiomediastinal silhouette is normal. The lungs are clear. No evidence of pleural effusion or pneumothorax. IMPRESSION: No acute abnormalities and in particular no evidence of pneumonia. ACT 112: Negative or not required by law. Electronically signed by: Perry Dunlap M.D. 10/15/2021 10:[address] 10/15/21 09:[address] DOSE: 537.48 mGy.cm HISTORY: Altered mental status. TECHNIQUE: Multiaxial CT images of the head were performed without the use of intravenous contrast. Automated exposure control was utilized for this study. A dose lowering technique was utilized adhering to the principles of ALARA. Comparison: None. Findings: The paranasal sinuses and mastoid air cells are clear. The calvarium and skull base are intact. There is no mass, hematoma, midline shift, acute infarct. White matter hypodensity is nonspecific but suggestive of microvascular ischemic change. The ventricles and sulci demonstrate mild age-related involutional changes. 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 Impression: No acute intracranial abnormality. Atrophy and microvascular ischemic changes. ACT 112: Negative or not required by law. Electronically signed by: Vikas Clark M.D. 10/15/2021 10:02 AM Discharge Plan Visit Data Chief Complaint: Urinary Symptoms ED Provider: Topher Knight Discharge Problem: Hyponatremia, COVID-19 Forms Stand Alone Forms: [facility] [place] [employer] [facility] Prescriptions Prescriptions: No Action metoprolol succinate 50 mg tablet extended release 24 hr 50 mg PO DAILY Qty: 90 RF: 3 metformin 1,000 mg tablet 1,000 mg PO BID Qty: 180 RF: 3 triamterene-hydrochlorothiazid 37.5-25 mg capsule 1 cap PO DAILY Qty: 90 RF: 3 levothyroxine 112 mcg capsule 112 mcg PO DAILY Qty: 90 RF: 3 simvastatin 20 mg tablet 20 mg PO QPM Qty: 90 RF: 3 Paxlovid (EUA) 150 mg x 2- 100 mg tablet See Rx Instructions PO .COMPLEX Qty: 30 RF: 0 acetaminophen [Tylenol Extra Strength] 500 mg tablet 1,000 mg PO BID RF: 0 PreserVision AREDS-2 [id number] ha-wmof-hq-mg capsule 1 tab PO BID RF: 0 dgumqxyizfpo-Ou-mwyr-minerals 1 tab PO DAILY RF: 0 calcium carbonate-vitamin D3 1 tab PO BID RF: 0 sertraline 50 mg tablet 50 mg PO DAILY RF: 0 Referrals Referrals: [facility] [Primary Care Provider] -
[2021-10-15 09:51] LABS: Basophils # (auto) 0.02 K/uL (0-0.2); Basophils % (auto) 0.2 %; Eosinophils # (auto) 0.07 K/uL (0-0.5); Eosinophils % (auto) 0.5 %; Hematocrit (blood only) 37.9 % (37-47); Hemoglobin 13.5 g/dL (12.0-16.0); Immature Granulocytes # (auto) 0.15 K/uL (0.00-0.02); Immature Granulocytes % (auto) 1.1 %; Lymphocytes # (auto) 2.09 K/uL (1.2-3.4); Lymphocytes % (auto) 15.9 %; Mean Corpuscular Hemoglobin 32.5 pg (25-34); Mean Corpuscular Hgb Conc 35.6 g/dL (32-36); Mean Corpuscular Volume 91.1 fL (80-100); Mean Platelet Volume 8.4 fL (7.4-10.4); Monocytes # (auto) 1.05 K/uL (0.11-0.59); Neutrophils # (auto) 9.73 K/uL (1.4-6.5); Neutrophils % (auto) 74.3 %; Platelet Count 471 K/uL (130-400); RDW Coefficient of Variation 13.1 % (11.5-14.5); RDW Standard Deviation 43.6 fL (36.4-46.3); Red Blood Count 4.16 M/uL (4.2-5.4); White Blood Count 13.11 K/uL (4.8-10.8)
--- NOTE | 2021-10-15 10:03 | CT Scan Report ---
HEAD CT NONCONTRAST CT DOSE: 537.48 mGy.cm HISTORY: Altered mental status. TECHNIQUE: Multiaxial CT images of the head were performed without the use of intravenous contrast. A utomated exposure control was utilized for this study. A dose lowering technique was utilized adheri ng to the principles of ALARA. Comparison: None. Findings: The paranasal sinuses and mastoid air cells are clear. The calvarium and skull base are int act. There is no mass, hematoma, midline shift, acute infarct. White matter hypodensity is nonspecifi c but suggestive of microvascular ischemic change. The ventricles and sulci demonstrate mild age-rela norbert involutional changes. There is an old punctate lacunar infarct within the right cerebellar hemisp here. Impression: No acute intracranial abnormality. Atrophy and microvascular ischemic changes. ACT 112: Negative or not required by law. Electronically signed by: Vikas Clark M.D. 10/15/2021 10:02 AM
--- NOTE | 2021-10-15 10:05 | XRay Report ---
XR chest 1V portable CLINICAL HISTORY: SEPSIS TECHNIQUE: Single frontal radiograph of the chest was obtained. Comparison: Comparison is made to chest radiograph 06/30/2017 FINDINGS: No lines and tubes are seen. The cardiomediastinal silhouette is normal. The lungs are clear. No evid ence of pleural effusion or pneumothorax. IMPRESSION: No acute abnormalities and in particular no evidence of pneumonia. ACT 112: Negative or not required by law. Electronically signed by: Perry Dunlap M.D. 10/15/2021 10:04 AM
[2021-10-15 10:06] LABS: Appearance Urine Cloudy (Clear); Bacteria Urine Automated 2+ (Negative); Bilirubin Urine Negative (Negative); Blood Urine 2+ (Negative); Cast Urine Automated 0 /lpf (0-5); Color Urine Yellow; Epithelial Cell Urine Auto 0-5 /lpf (0-5); Glucose Urine UA Negative (Negative); Ketones Urine Trace (Negative); Leukocyte Esterase Urine 3+ (Negative); Nitrite Urine Negative (Negative); Protein Urine 2+ (Negative); Specific Gravity Urine 1.014 (1.000-1.030); Urobilinogen Urine Negative (Negative); WBC Urine Automated >30 /hpf (0-5)
[2021-10-15 10:29] LABS: Partial Thromboplastin Time 28.3 Seconds (21.0-31.0); Prothrombin Time 10.6 Seconds (9.0-12.0)
[2021-10-15 10:58] LABS: Albumin Globulin Ratio 1.8 (0.9-2); Albumin Level 4.2 gm/dl (3.4-5.0); Calcium 9.6 mg/dl (8.5-10.1); Creatinine Clr Calc Pharmacy 48.8 ml/min; Est GFR (African American) 90.1 ml/min; Est GFR (Non-African American) 77.7 ml/min; Globulin 2.4 gm/dl (2.5-4.0); Magnesium 1.6 mg/dl (1.7-2.4); Potassium 3.7 mmol/L (3.5-5.1); Total Protein 6.6 gm/dl (6.0-8.3)
[2021-10-15] MEDS ORDERED: SODIUM CHLORIDE 0.9% 500 ML IV ONE (11:12)
[2021-10-15] MEDS ORDERED: cefTRIAXone SODIUM 1,000 MG/50 ML BAG IV STA (11:16)
--- NOTE | 2021-10-15 11:32 | History & Physical Report ---
Date of Service October 15, 2021 Assessment & Plan (1) Hyponatremia: Plan: Patient in the past with SIADH. We will check a random urine sodium urine and serum awesome we will fluid restrict her initially she appears euvolemic at this time. Follow her sodium in the afternoon. (2) Urinary tract infection: Plan: Urinary tract infection present on admission by urinalysis and leukocytosis. I cannot see old urinary tract infections to try to plan for possible resistant organisms. Subsequently we will begin with ceftriaxone as started in the ER. Urine culture blood cultures pending Metabolic encephalopathy on presentation from urinary tract infection and hyponatremia (3) COVID-19: Plan: Reportedly patient had test positive with symptoms at the [facility] was on Paxil of is an outpatient by patient's account approximately day 14 at this time (4) Diabetes mellitus, type II: Plan: Patient typically only takes metformin. We will have her on a very loose sliding scale with no basal unless she requires it and have a carbohydrate conservative diet, hemoglobin A1c checked, was 6.3 earlier in the month (5) Hypertension: Plan: We will continue her home meds of metoprolol 50 if she remains bradycardic may consider dose reduction. We will hold triamterene hydrochlorothiazide at this time (6) Hypothyroid: Plan: Levothyroxine 112 is continued she appears clinically euthyroid, last TSH checked September 24, 2021 was normal Plan: Patient with hypomagnesemia on presentation replete by intravenous magnesium patient remains on Zocor for dyslipidemia on sertraline for depression Patient is a full code at this time., Patient has a living will from the [facility] which says do not keep her alive if a hopeless situation occurs however speaking to her directly she wishes to be resuscitated until its determine the situation is hopeless Heparin will be used for DVT prevention History of Present Illness Primary Care Provider: [facility] pt presents with symptomatic hyponatremia with some lethargy and confusion, has a concurrent uti poa, and did have similar situations in the past in 2018 associated with an infulenza infection. At that time was as low as 111 and she did have salt tablets at time of discharge. most recently had sodium of 132 09/24/21 she typically is on HCTZ In the ER the patient had a mild leukocytosis negative CT head and chest x-ray. Abnormal urinalysis. Mild leukocytosis. COVID pending at this time, reportedly patient had outpatient COVID test positive with symptoms approximately 2 weeks prior did complete outpatient Paxil COVID treatment currently asymptomatic with regard to pulmonary symptomatology. Still has decreased appetite and lethargy which may be from her concomitant urinary tract infection and hyponatremia Allergies Allergy/AdvReac Type Severity Reaction Status Date / Time Sulfa (Sulfonamide Allergy Intermediate hives Verified 06/28/21 12:33 Antibiotics) Penicillins Allergy Unknown HIVES Verified 06/28/21 12:33 blue dye AdvReac Mild vomiting Verified 06/28/21 12:33 oseltamivir AdvReac Mild vomiting Verified 06/28/21 12:33 Home Medications Medication Instructions Recorded Confirmed Type sertraline 50 mg tablet 50 mg PO DAILY tab 02/02/19 06/28/21 History acetaminophen 500 mg tablet 1,000 mg PO BID tab 11/08/19 06/28/21 History (Tylenol Extra Strength) calcium carbonate-vitamin D3 1 tab PO BID 02/08/20 06/28/21 History [Calcium 600 with Vitamin D3] irbnibmxcjlj-Iz-fdqe-minerals 1 tab PO DAILY 02/08/20 06/28/21 History [Women's Daily Multivitamin] vit C 250 mg-vit E 90 mg-zinc 40 1 tab PO BID 02/08/20 06/28/21 History mg-copper 1 rl-vldgcg-yuyhxu capsule (PreserVision AREDS-2) metoprolol succinate 50 mg 50 mg PO DAILY #90 tab 11/14/20 06/28/21 Rx tablet,extended release 24 hr metformin 1,000 mg tablet 1,000 mg PO BID #180 tab 03/31/21 06/28/21 Rx triamterene 37.5 1 cap PO DAILY #90 cap 03/31/21 06/28/21 Rx mg-hydrochlorothiazide 25 mg capsule levothyroxine 112 mcg capsule 112 mcg PO DAILY #90 cap 05/09/21 06/28/21 Rx simvastatin 20 mg tablet 20 mg PO QPM #90 tab 05/29/21 06/28/21 Rx nirmatrelvir 300 mg (150 mg x See Rx Instructions PO .COMPLEX 09/27/21 09/27/21 Rx 2)-ritonavir 100 mg tablet (EUA) #30 tab (Paxlovid 300 mg () Past Med/Surg History Medical History Diabetes mellitus, type II Hyperlipidemia Hypertension Hyponatremia Hypothyroid Knee pain Mixed conductive and sensorineural hearing loss of right ear with restricted hearing of left ear Neck pain Osteoporosis 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 SNHL (sensorineural hearing loss) Surgical History History of dilation and curettage History of hysterectomy History of mastectomy History of tonsillectomy History of tooth extraction Family History Family/Other Depression Diabetes Heart disease Hypertension Hypercholesteremia Thyroid disorder Other Breast cancer Family history non-contributory Denies family history of Ovarian cancer Prostate cancer Myocardial infarction Colorectal cancer Social History Smoking Status: Former smoker Age Started Using Tobacco: 17; Age Quit Using Tobacco: 45; Second Hand Exposure: No; Hx Alcohol Use: No Hx Substance Use: No Preferred Language: Nepalese Visual Impairment: No Limitations Hearing Ability: Normal marital status: / current occupational status: retired Feels Safe at Home: Yes Dental Care, Regularly: Yes Physical Activity Frequency: Daily Seatbelt Use: always Review of Systems Review of Systems: Mild distress and significant fatigue no headache, no visual changes no speech or swallowing issues no chest pain, pressure or palpitations no shortness of breath, apically has an occasional cough. Primarily in the mor juli no abdominal pain, nausea or vomiting, diarrhea or constipation Urinary urgency incontinence and frequency no focal joint pain or swelling no back pain, CVA tenderness or radicular pain no bruising, bleeding or rashes no focal signs of weakness or numbness or altered sensation no complaints of anxiety or depression.. Physical Exam Physical Exam: The patient appeared well nourished and normally developed. Vital signs as documented. Head exam is normocephalic atraumatic Neck is without JVD, thyromegaly, or carotid bruits. Lungs are clear to auscultation, no focal loss of breath sounds Cardiac exam, Rhythm is regular.. No murmurs, rubs or gallops. Abdominal exam reveals normal bowel sounds, soft non tender, no masses Extremities are nonedematous and both pedal pulses are present Neurologic exam is alert and oriented, no focal loss of strength or sensation Skin is without bruises or rashes Psychologically is with concerns for depression patient not suicidal says she sees a counselor wishes to continue on her left therapy without change of dose Results & Data Results & Data ([facility]) Vital Signs (Past 12 Hours) Vital Signs Temp Pulse Resp BP Pulse Ox 10/15/21 09:09 97.5 F L 60 16 170/71 H 94 Diagnostic Findings Chest X-Ray 10/15/21 09:39 XR chest 1V portable CLINICAL HISTORY: SEPSIS TECHNIQUE: Single frontal radiograph of the chest was obtained. Comparison: Comparison is made to chest radiograph 06/30/2017 FINDINGS: No lines and tubes are seen. The cardiomediastinal silhouette is normal. The lungs are clear. No evidence of pleural effusion or pneumothorax. IMPRESSION: No acute abnormalities and in particular no evidence of pneumonia. ACT 112: Negative or not required by law. Electronically signed by: Perry Dunlap M.D. 10/15/2021 10:[address] 10/15/21 09:[address] DOSE: 537.48 mGy.cm HISTORY: Altered mental status. TECHNIQUE: Multiaxial CT images of the head were performed without the use of intravenous contrast. Automated exposure control was utilized for this study. A dose lowering technique was utilized adhering to the principles of ALARA. Comparison: None. Findings: The paranasal sinuses and mastoid air cells are clear. The calvarium and skull base are intact. There is no mass, hematoma, midline shift, acute infarct. White matter hypodensity is nonspecific but suggestive of microvascular ischemic change. The ventricles and sulci demonstrate mild age-related involutio nal changes. 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 Impression: No acute intracranial abnormality. Atrophy and microvascular ischemic changes. ACT 112: Negative or not required by law. Electronically signed by: Vikas Clark M.D. 10/15/2021 10:02 AM ECG Additional Comments: Normal sinus rhythm with a bradycardic rate around 58 PG Care Time/CCT Total # of Minutes Spent Total Time Spent with Patient: Total time spent is greater than 50% in coordination of care (as documented) at patient's floor/unit and/or counseling patient: Coding Level of Care Code 18404 Initial Inpt Care Lvl 3 Diagnoses Hyponatremia E87.1 Diabetes mellitus, type II E11.9 Hypertension I10 Hypertension type: essential hypertension Hypothyroid E03.9 Urinary tract infection N39.0 COVID-19 U07.1 (1) Hypertension Hypertension type: essential hypertension Qualified Code(s): I10 - Essential (primary) hypertension
--- NOTE | 2021-10-15 15:22 | Electrocardiogram Report ---
Test Reason : Blood Pressure : / mmHG Vent. Rate : 058 BPM Atrial Rate : 058 BPM P-R Int : 166 ms QRS Dur : 072 ms QT Int : 440 ms P-R-T Axes : 017 015 032 degrees QTc Int : 431 ms Sinus bradycardia Otherwise normal ECG When compared with ECG of 30-JUN-2017 22:57, No significant change was found Confirmed by Luis Carlos Steven ([id number]) on 10/15/2021 3:21:30 PM Referred By: [facility] Confirmed By:Luis Carlos Steven
[2021-10-15] MEDS ORDERED: GLUCOSE 40% GEL 15 GM TUBE PO PRN (16:56)
[2021-10-15] MEDS ORDERED: ALUMINUM/MAGNESIUM SUSP 30 ML UDC PO PRN (16:56)
[2021-10-15] MEDS ORDERED: MAGNESIUM SULFATE / D5W 1 GM/100 ML BAG IV ONE (16:56)
[2021-10-15] MEDS ORDERED: DEXTROSE 50% 50 ML SYRINGE IV PRN (16:56)
[2021-10-15] MEDS ORDERED: GLUCAGON FOR INJ 1 MG VIAL SQ PRN (16:56)
[2021-10-15] MEDS ORDERED: ONDANSETRON INJ 2 MG/ML 2 ML VIAL IV PRN (16:56)
[2021-10-15] MEDS ORDERED: CARBOHYDRATES FOR HYPOGLYCEMIA PO PRN (16:56)
[2021-10-15] MEDS ORDERED: GLUCOSE 10 TAB/TUBE PO PRN (16:56)
[2021-10-15] MEDS: INSULIN ASPART PER UNIT SC SCH ×2 (17:57→22:16)
[2021-10-15 19:14] LABS: BUN Creatinine Ratio 25.6 (10-20); Creatinine Clr Calc Pharmacy 43.2 ml/min; Est GFR (African American) 78.7 ml/min; Est GFR (Non-African American) 67.9 ml/min; Potassium 3.8 mmol/L (3.5-5.1)
[2021-10-15] MEDS: CALCIUM 600MG + VIT D 400 IU TAB PO SCH (20:42)
[2021-10-15] MEDS: ACETAMINOPHEN 500 MG TAB PO SCH (20:42)
[2021-10-15] MEDS: HEPARIN SOD 5,000 UNIT/0.5 ML VIAL SQ SCH (20:43)
[2021-10-15] MEDS: SIMVASTATIN 20 MG TAB PO SCH (20:43)
[2021-10-15] MEDS ORDERED: NON-FORMULARY MEDICATION (Vit C,E-Zn-Coppr-Lutein-Zeaxan [Preservision Areds-2] 250-200-40 PO SCH (21:00)
[2021-10-15] MEDS ORDERED: MELATONIN 3 MG TAB PO PRN (22:31)
[2021-10-15] MEDS ORDERED: MELATONIN 3 MG TAB PO ONE (22:40)
[2021-10-16] MEDS: LEVOTHYROXINE SODIUM 112 MCG TABLET PO SCH (06:17)
[2021-10-16 08:30] LABS: Hematocrit (blood only) 39.8 % (37-47); Hemoglobin 13.5 g/dL (12.0-16.0); Mean Corpuscular Hgb Conc 33.9 g/dL (32-36); Mean Corpuscular Volume 91.5 fL (80-100); Mean Platelet Volume 8.8 fL (7.4-10.4); Platelet Count 537 K/uL (130-400); RDW Coefficient of Variation 13.5 % (11.5-14.5); RDW Standard Deviation 44.9 fL (36.4-46.3); Red Blood Count 4.35 M/uL (4.2-5.4); White Blood Count 13.14 K/uL (4.8-10.8)
[2021-10-16] MEDS: METOPROLOL SUCC 50MG EXT REL TAB PO SCH (08:49)
[2021-10-16] MEDS: CALCIUM 600MG + VIT D 400 IU TAB PO SCH ×2 (08:49→21:12)
[2021-10-16] MEDS: ACETAMINOPHEN 500 MG TAB PO SCH ×2 (08:49→21:12)
[2021-10-16] MEDS: MULTIVITAMIN TAB PO SCH (08:49)
[2021-10-16] MEDS: HEPARIN SOD 5,000 UNIT/0.5 ML VIAL SQ SCH ×2 (08:51→21:12)
[2021-10-16] MEDS ORDERED: SERTRALINE HCL 50 MG TABLET PO SCH ×2 (09:00→10:00)
[2021-10-16 09:01] LABS: Estimated Average Glucose 140 mg/dl; Hemoglobin A1C 6.5 % (4.5-5.6)
[2021-10-16] MEDS: INSULIN ASPART PER UNIT SC SCH ×4 (09:10→23:13)
[2021-10-16] MEDS ORDERED: SERTRALINE HCL 50 MG TABLET PO ONE (09:45)
[2021-10-16] MEDS: cefTRIAXone SODIUM 1,000 MG in DEXTROSE 5% 50 ML IV SCH (09:52)
--- NOTE | 2021-10-16 13:50 | Hospitalist Progress Note ---
Date of Service October 16, 2021 Assessment & Plan (1) Hyponatremia: Plan: Serum osmolarity is low at 267. Fluid restriction continues. She has a history of SIADH. Daily labs ordered (2) Urinary tract infection: Plan: Gram-negative rods isolated. Oliva, day 2. Will await final identification which should be available tomorrow, October 17. Metabolic encephalopathy, POA: Now resolved (3) COVID-19: Plan: Reportedly patient had tested positive with symptoms at the [facility] [place] as an outpatient 2 weeks ago. No current symptoms of viral pneumonia or viral illness. (4) Diabetes mellitus, type II: Plan: ADA diet. Sliding scale coverage as indicated. Medication management. Hemoglobin A1c 6.3 earlier this month (5) Hypertension: Plan: ontrolled with metoprolol . Holding triamterene hydrochlorothiazide at this time (6) Hypothyroid: Plan: Levothyroxine replacement therapy. Plan: Eventual discharge back to the [facility] [place]. Admission and Anticipated Discharge Date Admission Date: October 15, 2021 Subjective Alert and oriented. She has improved since admission. Urine is growing gram- negative rods. Final identification pending. Blood cultures remain negative. Sodium improved to 126. Mild hypomagnesemia corrected. Osmolarity is low at 267 as expected due to SIADH. Anticipate discharge to home tomorrow, October 17 Review of Systems Review of Systems: Constitutional-no fever or chills ENT-no blurred vision, no double vision, no epistaxis, no sore throat Respiratory-no cough, no wheezing, no shortness of breath Cardiac-no palpitations, no chest pain, no syncope GI-no nausea, vomiting, diarrhea, melena, hematochezia -no urinary retention, no urinary incontinence, no dysuria, no hematuria Musculoskeletal-no joint pain, no muscle tenderness Skin-no bruising, no rashes, no pruritus Neuro-no isolated weakness, no paresthesia, no weakness Psych-no depression, no anxiety Physical Exam Physical Exam: General-alert and oriented x3, no fevers, no chills HEENT-head atraumatic and normocephalic, TMs intact bilaterally, pupils equal and reactive to light, extraocular muscles intact Neck-no lymphadenopathy or thyromegaly, trachea midline Chest-clear to auscultation percussion. No rales wheezing or rhonchi Cardiac-regular rate and rhythm, normal S1 and S2, no murmurs Abdomen-normal bowel sounds, nontender, no hepatosplenomegaly Extremities-no cyanosis, clubbing, or edema Neuro-cranial nerves II through XII intact, motor and sensory function within normal limits, strength symmetrical , no focal deficits Psych-normal affect, normal mood Results & Data Results & Data ([facility]) Vital Signs (Past 12 Hours) Vital Signs Temp Pulse Resp BP Pulse Ox 10/16/21 08:42 36.8 C 72 16 170/89 H 97 Laboratory Results 10/16/21 07:27 10/15/21 18:01 PG Care Time/CCT Total # of Minutes Spent Total Time Spent with Patient: Total time spent is greater than 50% in coordination of care (as documented) at patient's floor/unit and/or counseling patient: Coding Level of Care Code 58377 Subseq Hosp Care Lvl 3 Diagnoses Hyponatremia E87.1 Urinary tract infection N39.0 COVID-19 U07.1 Diabetes mellitus, type II E11.9 Hypertension I10 Hypertension type: essential hypertension Hypothyroid E03.9 (1) Hypertension Hypertension type: essential hypertension Qualified Code(s): I10 - Essential (primary) hypertension
[2021-10-16] MEDS: SIMVASTATIN 20 MG TAB PO SCH (21:12)
[2021-10-17] MEDS: LEVOTHYROXINE SODIUM 112 MCG TABLET PO SCH (03:55)
[2021-10-17] MEDS: MULTIVITAMIN TAB PO SCH (07:43)
[2021-10-17] MEDS: METOPROLOL SUCC 50MG EXT REL TAB PO SCH (07:43)
[2021-10-17] MEDS: ACETAMINOPHEN 500 MG TAB PO SCH (07:44)
[2021-10-17] MEDS: CALCIUM 600MG + VIT D 400 IU TAB PO SCH (07:44)
[2021-10-17] MEDS: cefTRIAXone SODIUM 1,000 MG in DEXTROSE 5% 50 ML IV SCH (07:47)
[2021-10-17] MEDS: HEPARIN SOD 5,000 UNIT/0.5 ML VIAL SQ SCH (07:51)
[2021-10-17] MEDS ORDERED: SERTRALINE HCL 50 MG TABLET PO SCH (09:00)
[2021-10-17] MEDS: INSULIN ASPART PER UNIT SC SCH ×2 (09:45→13:40)
[2021-10-17] MEDS ORDERED: CIPROFLOXACIN / D5W 400 MG/200 ML BAG IV SCH (10:00)
[2021-10-17 10:50] LABS: BUN Creatinine Ratio 24.6 (10-20); Calcium 9.6 mg/dl (8.5-10.1); Creatinine Clr Calc Pharmacy 48.8 ml/min; Est GFR (African American) 90.1 ml/min; Est GFR (Non-African American) 77.7 ml/min; Magnesium 1.8 mg/dl (1.7-2.4); Potassium 3.5 mmol/L (3.5-5.1)
[2021-10-17] MEDS: hydrALAZINE HCL 25 MG TAB PO SCH ×2 (11:20→13:41)
--- NOTE | 2021-10-17 11:39 | Discharge Summary ---
Date of Service October 17, 2021 Admission HPI Per Admitting Provider pt presents with symptomatic hyponatremia with some lethargy and confusion, has a concurrent uti poa, and did have similar situations in the past in 2018 associated with an infulenza infection. At that time was as low as 111 and she did have salt tablets at time of discharge. most recently had sodium of 132 09/24/21 she typically is on HCTZ In the ER the patient had a mild leukocytosis negative CT head and chest x-ray. Abnormal urinalysis. Mild leukocytosis. COVID pending at this time, reportedly patient had outpatient COVID test positive with symptoms approximately 2 weeks prior did complete outpatient Paxil COVID treatment currently asymptomatic with regard to pulmonary symptomatology. Still has decreased appetite and lethargy which may be from her concomitant urinary tract infection and hyponatremia Principal Diagnosis Metabolic encephalopathy, Pseudomonas UTI, hypomagnesemia Discharge Exam General-alert and oriented x3, no fevers, no chills HEENT-head atraumatic and normocephalic, TMs intact bilaterally, pupils equal and reactive to light, extraocular muscles intact Neck-no lymphadenopathy or thyromegaly, trachea midline Chest-clear to auscultation percussion. No rales wheezing or rhonchi Cardiac-regular rate and rhythm, normal S1 and S2, no murmurs Abdomen-normal bowel sounds, nontender, no hepatosplenomegaly Extremities-no cyanosis, clubbing, or edema Neuro-cranial nerves II through XII intact, motor and sensory function within normal limits, strength symmetrical , no focal deficits Psych-normal affect, normal mood Discharge Data Allergies Allergy/AdvReac Type Severity Reaction Status Date / Time Sulfa (Sulfonamide Allergy Intermediate hives Verified 10/15/21 15:00 Antibiotics) Penicillins Allergy Unknown HIVES Verified 10/15/21 15:00 blue dye AdvReac Mild vomiting Verified 10/15/21 15:00 oseltamivir AdvReac Mild vomiting Verified 10/15/21 15:00 Consultations 10/15/21 11:24 ED Decision to Admit Stat Ordered Studies 10/15/21 09:41 CT head/brain wo con Stat Hospital Course (1) Hyponatremia: Serum osmolarity is low at 267. Fluid restriction continues. She has a history of SIADH. Daily labs ordered (2) Urinary tract infection: Pseudomonas isolated. Rocephin switched to Cipro.. Metabolic encephalopathy, POA: Now resolved (3) COVID-19: Reportedly patient had tested positive with symptoms at the [facility] as an outpatient 2 weeks ago. No current symptoms of viral pneumonia or viral illness. (4) Diabetes mellitus, type II: ADA diet. Sliding scale coverage as indicated. Medication management. Hemoglobin A1c 6.3 earlier this month (5) Hypertension: controlled with metoprolol . Holding triamterene/ hydrochlorothiazide at this time. Hydralazine added (6) Hypothyroid: Levothyroxine replacement therapy. l discharge back to the [facility] today, 10/17 Total Time Total Time Spent Total Time Spent (In Minutes): 35 minutes Discharge Plan Discharge Items Patient Disposition: Home - Self-Care Reason For Visit: SYMPTOMATIC HYPONATREMIA, UTI POA Discharge Diagnosis: Pseudomonas UTI, metabolic encephalopathy, hypomagnesemia Activity: Resume your previous activity Non-emergency contact: Primary Care Provider Call non-emergency contact if: you have any medication questions Follow-up/Referrals: [facility] [Primary Care Provider] - Diet: Carb Consistent or DM2 Addtl Attending Provider Instructions: Take Cipro for 5 days for the urinary tract infection. Hydralazine has been added for blood pressure control Pending Studies at Discharge: No Stand-Alone Forms: My [facility] [employer], Smoking Cessation Medications and DC Order Prescriptions: New hydralazine 25 mg Tablet 25 mg PO TID Qty: 100 RF: 0 ciprofloxacin HCl [Cipro] 500 mg tablet 500 mg PO BID Qty: 10 RF: 0 Continued metoprolol succinate 50 mg tablet extended release 24 hr 50 mg PO DAILY Qty: 90 RF: 3 metformin 1,000 mg tablet 1,000 mg PO BID Qty: 180 RF: 3 triamterene-hydrochlorothiazid 37.5-25 mg capsule 1 cap PO DAILY Qty: 90 RF: 3 levothyroxine 112 mcg capsule 112 mcg PO DAILY Qty: 90 RF: 3 simvastatin 20 mg tablet 20 mg PO QPM Qty: 90 RF: 3 acetaminophen [Tylenol Extra Strength] 500 mg tablet 500 mg PO BID RF: 0 PreserVision AREDS-2 [id number] dk-lafk-yd-mg capsule 1 tab PO BID RF: 0 sertraline 50 mg tablet 50 mg PO DAILY RF: 0 calcium carbonate-vitamin D3 [Calcium 600 + D(3)] 600 mg-10 mcg (400 unit) Tablet 1 tab PO BID RF: 0 Women's One Daily 18 mg iron-400 mcg-500 mg Ca Tablet 1 tab PO DAILY RF: 0 Discharge Orders: Discharge Order (Routine); Ordered 10/17/21 Ordered By: Carlos Alberto Kumar/Other Patient Handouts: Managing Type 2 Diabetes Admission Data Admit Date/Time: 10/15/21 11:38 Attending Provider: Carlos Alberto Cunningham Admit Provider: Vinicius Min [facility] Other Providers: Vinicius Min Coding Level of Care Code D/C DAY MANAGEMENT >30 MINS Diagnoses Hyponatremia E87.1 Urinary tract infection N39.0 COVID-19 U07.1 Diabetes mellitus, type II E11.9 Hypertension I10 Hypertension type: essential hypertension Hypothyroid E03.9
--- NOTE | 2021-10-24 12:36 | Coding Query ---
CODING QUERY To promote full compliance with coding requirements relating to patient care, provider participation is requested in all cases of police lieutenant precinct uncertainty. 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 Please specify below, in your clinical opinion, regarding SIADH on this admission. 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 ( ) Hyponatremia with No SIADH on this admission ( ) Other: Please Specify Physician's Response(s): Thank you Sonia More Principal Diagnosis: "that condition established after study, to be chiefly responsible for occasioning the admission of the patient to the hospital for care." Co-Existing Principal Diagnosis: "when two or more diagnoses equally meet the criteria for principal diagnosis as determined by the circumstances of admission, diagnostic work up, and/or therapy provided, and the Alphabetic Index, Tabular List, or another coding guideline does not provide sequencing direction, any one of the diagnoses may be sequenced first." "When the physician has documented what appears to be a current diagnosis in the body of the record, but has not included the diagnosis in the final diagnostic statement, the physician should be asked whether the diagnosis should be added." (Source Coding [facility] 2 QTR90. p3-4) KAMAR
--- NOTE | 2021-10-24 12:41 | Coding Query ---
CODING QUERY To promote full compliance with coding requirements relating to patient care, provider participation is requested in all cases of senior clinical data analyst uncertainty. Please assist us with the question(s) below: Coding Question(s): The ER documents, "Patient will be admitted to a telemetry bed for further management to the hospitalist service for acute hyponatremia and COVID-19 infection", and the Discharge Summary documents, "Reason For Visit: SYMPTOMATIC HYPONATREMIA, UTI POA". Please specify below, in your clinical opinion, the diagnosis that is most responsible for occasioning the admission. ( x ) Hyponatremia ( ) UTI ( ) COVID-19 Infection ( ) Other: Please Specify Physician's Response(s): Thank you Sonia More Principal Diagnosis: "that condition established after study, to be chiefly responsible for occasioning the admission of the patient to the hospital for care." Co-Existing Principal Diagnosis: "when two or more diagnoses equally meet the criteria for principal diagnosis as determined by the circumstances of admission, diagnostic work up, and/or therapy provided, and the Alphabetic Index, Tabular List, or another coding guideline does not provide sequencing direction, any one of the diagnoses may be sequenced first." "When the physician has documented what appears to be a current diagnosis in the body of the record, but has not included the diagnosis in the final diagnostic statement, the physician should be asked whether the diagnosis should be added." (Source Coding [facility] 2 QTR90. p3-4) KAMAR
== END 2021-10-17 15:33 | disposition home or self-care (01) | DRG 643 ==
LOC: ED 09:13 → SUATTDRO 11:38 → 3E 11:38

== ENCOUNTER 2021-10-19 21:48 | Inpatient (IN) ==
[2021-10-19] MEDS ORDERED: SODIUM CHLORIDE 0.9% 500 ML IV SCH (22:15)
--- NOTE | 2021-10-19 22:21 | Emergency Department Note ---
History of Present Illness General Chief complaint: Leg Weakness, Bilateral Stated complaint: WEAKNESS TROUBLE AMBULATING Time Seen by Provider: 10/19/21 22:05 History of Present Illness 82-year-old female presents to the ED with a chief complaint of generalized weakness over the past 24 hours especially tonight. She also seem to be a little more confused than usual. She was not communicating as well as normal. The caregiver states that she was discharged on Friday and placed on Cipro for UTI. She is continuing to take that. She will take that till Friday. The patient also was admitted for hyponatremia. Her discharge diagnoses include metabolic encephalopathy, Pseudomonas UTI and hypomagnesemia. The patient did have COVID several weeks ago. She still reports mild ongoing cough. No additio nal complaints. Denies any chest pains or shortness of breath. No nausea, vomiting or diarrhea. Home Medications Medication Instructions Recorded Confirmed Type sertraline 50 mg tablet 50 mg PO DAILY tab 02/02/19 10/19/21 History acetaminophen 500 mg tablet 500 mg PO BID tab 11/08/19 10/19/21 History (Tylenol Extra Strength) vit C 250 mg-vit E 90 mg-zinc 40 1 tab PO BID 02/08/20 10/19/21 History mg-copper 1 [id number] capsule (PreserVision AREDS-2) metoprolol succinate 50 mg 50 mg PO DAILY #90 tab 11/14/20 10/19/21 Rx tablet,extended release 24 hr metformin 1,000 mg tablet 1,000 mg PO BID #180 tab 03/31/21 10/19/21 Rx triamterene 37.5 1 cap PO DAILY #90 cap 03/31/21 10/19/21 Rx mg-hydrochlorothiazide 25 mg capsule levothyroxine 112 mcg capsule 112 mcg PO DAILY #90 cap 05/09/21 10/19/21 Rx simvastatin 20 mg tablet 20 mg PO QPM #90 tab 05/29/21 10/19/21 Rx calcium carbonate 600 mg-vitamin 1 tab PO BID 10/15/21 10/19/21 History D3 10 mcg (400 unit) tablet (Calcium 600 + D(3)) multivit-iron 18 mg-folic acid 400 1 tab PO DAILY 10/15/21 10/19/21 History mcg-calcium 500 mg-minerals tablet (Women's One Daily) ciprofloxacin HCl 500 mg tablet 500 mg PO BID #10 tab 10/17/21 10/19/21 Rx (Cipro) hydralazine 25 mg tablet 25 mg PO TID #100 tab 10/17/21 10/19/21 Rx Allergies Allergy/AdvReac Type Severity Reaction Status Date / Time Sulfa (Sulfonamide Allergy Intermediate hives Verified 10/19/21 22:06 Antibiotics) Penicillins Allergy Unknown HIVES Verified 10/19/21 22:06 blue dye AdvReac Mild vomiting Verified 10/19/21 22:06 oseltamivir AdvReac Mild vomiting Verified 10/19/21 22:06 Past Med/Surg History Medical History Diabetes mellitus, type II Hyperlipidemia Hypertension Hyponatremia Hypothyroid Knee pain Mixed conductive and sensorineural hearing loss of right ear with restricted hearing of left ear Neck pain Osteoporosis 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 SNHL (sensorineural hearing loss) Surgical History History of dilation and curettage History of hysterectomy supracervical History of mastectomy History of tonsillectomy History of tooth extraction Family History Family/Other Depression Diabetes Heart disease Hypertension Hypercholesteremia Thyroid disorder Other Breast cancer Family history non-contributory Denies family history of Ovarian cancer Prostate cancer Myocardial infarction Colorectal cancer Social History Smoking Status: Former smoker Tobacco Type: Cigarettes Age Started Using Tobacco: 17; Age Quit Using Tobacco: 45; Second Hand Exposure: No; Hx Alcohol Use: No Hx Substance Use: No Preferred Language: Estonian Communication Ability: Effective Visual Impairment: No Limitations Hearing Ability: Normal Beliefs That Will Affect Care: None marital status: / Current Living Situation: Alone current occupational status: retired Feels Safe at Home: Yes Dental Care, Regularly: Yes Physical Activity Frequency: Daily Seatbelt Use: always Assistive Devices: None Review of Systems A total of 10 systems reviewed and were otherwise negative Physical Exam Vital Signs Vital Signs - 24 hr 10/19/21 22:26 10/19/21 23:00 10/20/21 00:25 Temperature 36.6 C Temperature Source Oral Pulse Rate 65 62 63 Respiratory Rate 19 20 16 Blood Pressure 149/79 H 179/81 H 168/76 H Blood Pressure Mean 102 113 106 Pulse Oximetry 94 97 96 Oxygen Delivery Method Room Air Room Air Room Air Sepsis Recent Fever Within 48 Hours No Sepsis New/Unexplained Change in Mental Status No Sepsis Action Taken by Nursing No Action Required CONSTITUTIONAL/VITAL SIGNS: Reviewed / noted above. GENERAL: Non-toxic in appearance. Patient seems a little confused as to what is wrong. INTEGUMENTARY: Warm, dry, and [place]. HEAD: Normocephalic. EYES: without scleral icterus or trauma. ENT/OROPHARYNX: clear and moist. LYMPHADENOPATHY/NECK: Is supple without lymphadenopathy or meningismus. RESPIRATORY: Clear to auscultation bilaterally. No increased work of breathing. CARDIOVASCULAR: Regular rate and rhythm. GI/ABDOMEN: Soft and nontender. No organomegaly or pulsatile mass. EXTREMITIES: Warm and well perfused. BACK: No CVA tenderness. NEUROLOGICAL: Intact without focal deficits. PSYCHIATRIC: normal affect. MUSCULOSKELETAL: Normally developed with good muscle tone. TRIAGE NURSING DOCUMENTATION REVIEWED. Course Administered Medications Discontinued Medications Sodium Chloride (Nss) 500 mls @ 999 mls/hr IV .Q31M MERY Stop: 10/19/21 22:45 Last Infusion: 10/19/21 23:04 Dose: 0 mls/hr Documented by: [id number] Admin: 10/19/21 22:33 Dose: 999 mls/hr Documented by: [id number] Medical Decision Making Differential Diagnosis Differential includes acute coronary syndrome, myocardial infarction, CVA, TIA, anemia, infection, pneumonia, UTI, pyelonephritis, poor nutrition, dehydration, electrolyte disturbance,hypoglycemia. Medical Records Attestation: I reviewed the patient's medical records. Home Medications Current Medication List: was personally reviewed by me Laboratory Data Attestation: I reviewed the patient's lab results. Result diagrams: 10/19/21 22:30 10/19/21 22:30 Lab Results 10/19/21 10/19/21 10/19/21 Range/Units 22:30 22:30 22:30 WBC 15.23 H (4.8-10.8) K/uL RBC 3.95 L (4.2-5.4) M/uL Hgb 12.8 (12.0-16.0) g/dL Hct 35.6 L (37-47) % MCV 90.1 (80-100) fL MCH 32.4 (25-34) pg MCHC 36.0 (32-36) g/dL RDW Std Deviation 44.4 (36.4-46.3) fL RDW Coeff of Bernabe 13.5 (11.5-14.5) % Plt Count 420 H (130-400) K/uL MPV 8.2 (7.4-10.4) fL Immature Gran % (Auto) 1.1 % Neut % (Auto) 74.5 % Lymph % (Auto) 14.8 % [place] % (Auto) 8.5 % Eos % (Auto) 0.9 % Baso % (Auto) 0.2 % Neut # (Auto) 11.33 H (1.4-6.5) K/uL Lymph # (Auto) 2.26 (1.2-3.4) K/uL [place] # (Auto) 1.30 H (0.11-0.59) K/uL Eos # (Auto) 0.14 (0-0.5) K/uL Baso # (Auto) 0.03 (0-0.2) K/uL Immature Gran # (Auto) 0.17 H (0.00-0.02) K/uL Sodium 120 L (136-145) mmol/L Potassium 3.7 (3.5-5.1) mmol/L Chloride 85 L (98-107) mmol/L Carbon Dioxide 26 (21-32) mmol/L Anion Gap 9 (3-11) BUN 14 (6-23) mg/dl Creatinine 0.64 (0.6-1.2) mg/dl Est Cr Clr Drug Dosing Not Reportable Est GFR ( Amer) 92.3 ml/min Est GFR (Non-Af Amer) 79.7 ml/min BUN/Creatinine Ratio 21.9 H (10-20) Glucose 110 H (70-99(Fasting)) mg/dl Lactate 0.9 (0.4-2.0) mmol/L Calcium 9.1 (8.5-10.1) mg/dl Magnesium 1.6 L (1.7-2.4) mg/dl Total Bilirubin 1.1 H (0.2-1.0) mg/dl AST 21 (13-39) U/L ALT 15 (7-52) U/L Alkaline Phosphatase 84 (34-104) U/L Total Creatine Kinase 65 (26-192) U/L Troponin I High Sens 7.1 (0-14) pg/ml Total Protein 6.6 (6.0-8.3) gm/dl Albumin 4.2 (3.4-5.0) gm/dl Globulin 2.4 L (2.5-4.0) gm/dl Albumin/Globulin Ratio 1.8 (0.9-2) TSH (0.300-4.500) uIu/ml Urine Color Urine Appearance (Clear) Urine pH (4.5-7.5) Ur Specific [place] (1.000-1.030) Urine Protein (Negative) Urine Glucose (UA) (Negative) Urine Ketones (Negative) Urine Blood (Negative) Urine Nitrite (Negative) Urine Bilirubin (Negative) Urine Urobilinogen (Negative) Ur Leukocyte Esterase (Negative) 10/19/21 10/20/21 Range/Units 22:30 00:14 WBC (4.8-10.8) K/uL RBC (4.2-5.4) M/uL Hgb (12.0-16.0) g/dL Hct (37-47) % MCV (80-100) fL MCH (25-34) pg MCHC (32-36) g/dL RDW Std Deviation (36.4-46.3) fL RDW Coeff of Bernabe (11.5-14.5) % Plt Count (130-400) K/uL MPV (7.4-10.4) fL Immature Gran % (Auto) % Neut % (Auto) % Lymph % (Auto) % [place] % (Auto) % Eos % (Auto) % Baso % (Auto) % Neut # (Auto) (1.4-6.5) K/uL Lymph # (Auto) (1.2-3.4) K/uL [place] # (Auto) (0.11-0.59) K/uL Eos # (Auto) (0-0.5) K/uL Baso # (Auto) (0-0.2) K/uL Immature Gran # (Auto) (0.00-0.02) K/uL Sodium (136-145) mmol/L Potassium (3.5-5.1) mmol/L Chloride (98-107) mmol/L Carbon Dioxide (21-32) mmol/L Anion Gap (3-11) BUN (6-23) mg/dl Creatinine (0.6-1.2) mg/dl Est Cr Clr Drug Dosing Est GFR ( Amer) ml/min Est GFR (Non-Af Amer) ml/min BUN/Creatinine Ratio (10-20) Glucose (70-99(Fasting)) mg/dl Lactate (0.4-2.0) mmol/L Calcium (8.5-10.1) mg/dl Magnesium (1.7-2.4) mg/dl Total Bilirubin (0.2-1.0) mg/dl AST (13-39) U/L ALT (7-52) U/L Alkaline Phosphatase (34-104) U/L Total Creatine Kinase (26-192) U/L Troponin I High Sens (0-14) pg/ml Total Protein (6.0-8.3) gm/dl Albumin (3.4-5.0) gm/dl Globulin (2.5-4.0) gm/dl Albumin/Globulin Ratio (0.9-2) TSH 4.005 (0.300-4.500) uIu/ml Urine Color Yellow Urine Appearance Clear (Clear) Urine pH 8.5 H (4.5-7.5) Ur Specific [place] 1.005 (1.000-1.030) Urine Protein Negative (Negative) Urine Glucose (UA) Negative (Negative) Urine Ketones Negative (Negative) Urine Blood Negative (Negative) Urine Nitrite Negative (Negative) Urine Bilirubin Negative (Negative) Urine Urobilinogen Negative (Negative) Ur Leukocyte Esterase Negative (Negative) Imaging Data Radiologist's Impression: Chest X-Ray 10/19/21 22:06 SINGLE VIEW CHEST CLINICAL HISTORY: Generalized weakness. FINDINGS: An AP, portable, upright chest radiograph is compared to study dated 10/15/2021 and correlated with chest CT dated 12/27/2020. The examination is degraded by portable technique and patient rotation. The heart is top normal for projection noting atherosclerotic calcification of the thoracic aorta. The pulmonary vasculature is noncongested. Chronic interstitial thickening is similar to previous. There is bibasilar scarring/atelectasis. The lungs and pleural spaces are otherwise clear. No pneumothorax is seen. The skeletal structures are osteopenic. There are healed right-sided rib fractures. IMPRESSION: No active disease in the chest. ACT 112: Negative or not required by law. Electronically signed by: Mil Aquino M.D. 10/19/2021 10:[address] 10/19/21 22:15 CT SCAN OF THE BRAIN WITHOUT IV CONTRAST CLINICAL HISTORY: Change in mental status. COMPARISON STUDY: CT of the brain dated 10/15/2021. TECHNIQUE: Unenhanced axial CT scan of the brain is performed from the vertex to the skull base. A dose lowering technique was utilized adhering to the principles of ALARA. CT DOSE: 691.05 mGy.cm FINDINGS: Brain parenchyma: There is age-related involutional change noting mild to moderate subcortical and periventricular microangiopathic disease. There is no hemorrhage, mass effect, or evidence of acute territorial ischemia by CT criteria. Morgan-white matter differentiation is preserved. No extra-axial fluid collection is seen. Ventricles, sulci, cisterns: Prominent secondary to involutional change. Intracranial vasculature: There is atherosclerotic calcification of the cavernous carotid and vertebral arteries. Calvarium: Unremarkable. Sinuses and mastoids: The visualized paranasal sinuses are clear. The mastoid air cells are well pneumatized. Orbits: The bony orbits are grossly intact. There are bilateral ocular lens implants. IMPRESSION: There is no hemorrhage, mass effect, or evidence of acute territorial ischemia by CT criteria. ACT 112: Negative or not required by law. Electronically signed by: Mil Aquino M.D. 10/20/2021 12:24 AM ECG Data Attestation: I personally reviewed and interpreted this ECG as follows: Additional Comments: Twelve-lead EKG: Per my interpretation shows a normal sinus rhythm at a rate of 65. No ST elevation. No PVCs. Normal QTC. MDM Narrative 89-year-old female presents with generalized weakness. Caregiver provides much of the history. The patient has had increased confusion today as well as some increased weakness. She is still taking the Cipro for her UTI. She was discharged on Friday, 2 days ago with this. The patient sodium today is 120. It was 131 2 days ago. White blood cell count of 15. Chemistry panel was un remarkable. TSH normal. Chest x-ray did not show acute process nor did a CT scan of the brain. EKG shows normal sinus rhythm. The patient was given 100 mL of hypertonic saline as she is acutely confused tonight, per caregivers in addition to her weakness. She will be seen by the hospitalist, for further inpatient evaluation and care. Impression & Plan Acute hyponatremia, Acute confusion, Weakness Discharge Plan Visit Data Chief Complaint: Leg Weakness, Bilateral Stated Complaint: WEAKNESS TROUBLE AMBULATING ED Provider: Alejandro Garcia Discharge Problem: Acute hyponatremia, Acute confusion, Weakness Patient Disposition: Being Evaluated by Hospitalist Forms Stand Alone Forms: [facility] Prescriptions Prescriptions: No Action metoprolol succinate 50 mg tablet extended release 24 hr 50 mg PO DAILY Qty: 90 RF: 3 metformin 1,000 mg tablet 1,000 mg PO BID Qty: 180 RF: 3 triamterene-hydrochlorothiazid 37.5-25 mg capsule 1 cap PO DAILY Qty: 90 RF: 3 levothyroxine 112 mcg capsule 112 mcg PO DAILY Qty: 90 RF: 3 simvastatin 20 mg tablet 20 mg PO QPM Qty: 90 RF: 3 acetaminophen [Tylenol Extra Strength] 500 mg tablet 500 mg PO BID RF: 0 PreserVision AREDS-2 [id number] [id number]-[id number]-mg capsule 1 tab PO BID RF: 0 sertraline 50 mg tablet 50 mg PO DAILY RF: 0 calcium carbonate-vitamin D3 [Calcium 600 + D(3)] 600 mg-10 mcg (400 unit) Tablet 1 tab PO BID RF: 0 Women's One Daily 18 mg iron-400 mcg-500 mg Ca Tablet 1 tab PO DAILY RF: 0 hydralazine 25 mg Tablet 25 mg PO TID Qty: 100 RF: 0 ciprofloxacin HCl [Cipro] 500 mg tablet 500 mg PO BID Qty: 10 RF: 0 Referrals Referrals: [facility] [Primary Care Provider] -
[2021-10-19 22:48] LABS: Basophils # (auto) 0.03 K/uL (0-0.2); Basophils % (auto) 0.2 %; Eosinophils # (auto) 0.14 K/uL (0-0.5); Eosinophils % (auto) 0.9 %; Hematocrit (blood only) 35.6 % (37-47); Hemoglobin 12.8 g/dL (12.0-16.0); Immature Granulocytes # (auto) 0.17 K/uL (0.00-0.02); Immature Granulocytes % (auto) 1.1 %; Lymphocytes # (auto) 2.26 K/uL (1.2-3.4); Lymphocytes % (auto) 14.8 %; Mean Corpuscular Hemoglobin 32.4 pg (25-34); Mean Corpuscular Volume 90.1 fL (80-100); Mean Platelet Volume 8.2 fL (7.4-10.4); Monocytes % (auto) 8.5 %; Neutrophils # (auto) 11.33 K/uL (1.4-6.5); Neutrophils % (auto) 74.5 %; Platelet Count 420 K/uL (130-400); RDW Coefficient of Variation 13.5 % (11.5-14.5); RDW Standard Deviation 44.4 fL (36.4-46.3); Red Blood Count 3.95 M/uL (4.2-5.4); White Blood Count 15.23 K/uL (4.8-10.8)
--- NOTE | 2021-10-19 22:48 | XRay Report ---
SINGLE VIEW CHEST CLINICAL HISTORY: Generalized weakness. FINDINGS: An AP, portable, upright chest radiograph is compared to study dated 10/15/2021 and correlat ed with chest CT dated 12/27/2020. The examination is degraded by portable technique and patient rotati on. The heart is top normal for projection noting atherosclerotic calcification of the thoracic aorta . The pulmonary vasculature is noncongested. Chronic interstitial thickening is similar to previous. There is bibasilar scarring/atelectasis. The lungs and pleural spaces are otherwise clear. No pneumot horax is seen. The skeletal structures are osteopenic. There are healed right-sided rib fractures. IMPRESSION: No active disease in the chest. ACT 112: Negative or not required by law. Electronically signed by: Mil Aquino M.D. 10/19/2021 10:46 PM
[2021-10-19 23:22] LABS: Alanine Aminotransferase 15 U/L (7-52); Albumin Globulin Ratio 1.8 (0.9-2); Albumin Level 4.2 gm/dl (3.4-5.0); Alkaline Phosphatase 84 U/L (34-104); Anion Gap 9 (3-11); Aspartate Aminotransferase 21 U/L (13-39); BUN Creatinine Ratio 21.9 (10-20); Bilirubin,Total 1.1 mg/dl (0.2-1.0); Blood Urea Nitrogen 14 mg/dl (6-23); Calcium 9.1 mg/dl (8.5-10.1); Carbon Dioxide 26 mmol/L (21-32); Chloride 85 mmol/L (98-107); Creatine Kinase 65 U/L (26-192); Est GFR (African American) 92.3 ml/min; Est GFR (Non-African American) 79.7 ml/min; Globulin 2.4 gm/dl (2.5-4.0); Glucose 110 mg/dl (70-99(Fasting)); Magnesium 1.6 mg/dl (1.7-2.4); Potassium 3.7 mmol/L (3.5-5.1); Sodium 120 mmol/L (136-145); Total Protein 6.6 gm/dl (6.0-8.3); Troponin I High Sensitivity 7.1 pg/ml (0-14)
[2021-10-19] MEDS ORDERED: SODIUM CHLORIDE 3 % 100 ML IV ONE (23:44)
--- NOTE | 2021-10-20 00:26 | CT Scan Report ---
CT SCAN OF THE BRAIN WITHOUT IV CONTRAST CLINICAL HISTORY: Change in mental status. COMPARISON STUDY: CT of the brain dated 10/15/2021. TECHNIQUE: Unenhanced axial CT scan of the brain is performed from the vertex to the skull base. A do se lowering technique was utilized adhering to the principles of ALARA. CT DOSE: 691.05 mGy.cm FINDINGS: Brain parenchyma: There is age-related involutional change noting mild to moderate subcortical and pe riventricular microangiopathic disease. There is no hemorrhage, mass effect, or evidence of acute ter ritorial ischemia by CT criteria. Morgan-white matter differentiation is preserved. No extra-axial flui d collection is seen. Ventricles, sulci, cisterns: Prominent secondary to involutional change. Intracranial vasculature: There is atherosclerotic calcification of the cavernous carotid and vertebr al arteries. Calvarium: Unremarkable. Sinuses and mastoids: The visualized paranasal sinuses are clear. The mastoid air cells are well pneu matized. Orbits: The bony orbits are grossly intact. There are bilateral ocular lens implants. IMPRESSION: There is no hemorrhage, mass effect, or evidence of acute territorial ischemia by CT jeannie sewell. ACT 112: Negative or not required by law. Electronically signed by: Mil Aquino M.D. 10/20/2021 12:24 AM
[2021-10-20 00:41] LABS: Appearance Urine Clear (Clear); Bilirubin Urine Negative (Negative); Blood Urine Negative (Negative); Color Urine Yellow; Glucose Urine UA Negative (Negative); Ketones Urine Negative (Negative); Leukocyte Esterase Urine Negative (Negative); Nitrite Urine Negative (Negative); Protein Urine Negative (Negative); Specific Gravity Urine 1.005 (1.000-1.030); Urobilinogen Urine Negative (Negative); pH Urine 8.5 (4.5-7.5)
--- NOTE | 2021-10-20 00:56 | History & Physical Report ---
Date of Service October 20, 2021 Assessment & Plan (1) Hyponatremia: Plan: 89-year-old female with recent admission for hyponatremia, hearing loss, osteoporosis, type 2 diabetes, hypertension on hydrochlorothiazide triamterene, hypothyroidism who presented to [facility] for evaluation of bilateral leg weakness, subsequently found to have hyponatremia of 120 on arrival. 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 Hyponatremia - Recently discharged 10/17 for hyponatremia with low urine osmolality (155), low serum osmolality (267), and urine sodium 27 -- corrected to 131 PTD with fluid restriction - On arrival, found to have Na 120 -- unable to check uOsm/sOsm due to lab equipment being down; suspect likely similar to previous - Given rapid drop and reported increased of H2O consumption, suspect secondary to polydipsia and possibly contribution from her diuretic (HCTZ-triamterene) - Fluid restriction < 2L/day - Salt tab 1g t.i.d. MERY - Serial BMPs q4h - Neurovasculature checks, seizure precautions - Monitor on MS/Tele - Hold HCTZ-triamterene (2) Diabetes mellitus, type II: Plan: - Last A1c at 6.5% on 10/16/21 -- just over threshold, at-goal - ACHS BSG checks with loose SSI - Hold metformin (3) Hyperlipidemia: Plan: - continue simvastatin (4) Hypertension: Plan: - STOP HCTZ 25-triamterene 37.5mg -- consider transitioning to CCB as alternative regimen - Continue metoprolol succinate 50mg daily - Continue hydralazine 25 tid (5) Hypothyroid: Plan: - continue levothyroxine (6) COVID-19: Plan: - Tested positive approx. 14 days [employer] on 10/15 -- tested positive again today, 10/20, on admission - Asypmtomatic. No O2 requirement. No indication for pharmacologic therapeutics. - Contact precautions - may wish to consider d/w infection control to see if ?d/c precautions (7) Urinary tract infection: Plan: - diagnosed during last admission on 10/15/21 -- UCX revealing prieto-sensitive Pseudomonas - UA without infectious appearance on admission - continue ciprofloxacin through 10/22 then STOP to complete course (8) Acute confusion: Plan: - presented with increased weakness and confusion upon arrival reported by caregiver (prior to admission) -- seems to have improved by time of admission, responded to questions appropriately - work-up as follows: - fully A&O, no e/o FNDs on neuro exam - hyponatremia 120 on arrival with mild hypomagnesemia 1.6 - CBC with leukocytosis and L shift - resolving UTI on ciprofloxacin (end 10/22) - CT-H without acute abnormalities - procal negative - suspect secondary to hyponatremia and possible contribution from ciprofloxacin - hyponatremia as above; monitor mentation with fluid restriction/salt tabs -- if confusion recurs, may wish to d/c ciprofloxacin as symptoms have resolved - trend CBC for leukocytosis - UTI noted, though clinically resolved and no other GI, skin, pulmonary causes to explain -- ?stress demargination Plan: code: full code diet: CC, fluid restriction < 2L, salt tab tid ppx: heparin dispo: ms/tele History of Present Illness Primary Care Provider: [facility] 89-year-old female with recent admission for hyponatremia, hearing loss, osteoporosis, type 2 diabetes, hypertension on hydrochlorothiazide triamterene, hypothyroidism who presented to [facility] for evaluation of weakness. Patient tells me that since her discharge, she has been drinking "a lot of water to stay hydrated." While her urinary symptoms have much improved (aside from urinating more because of increased water intake), she has progressively felt weaker and a bit more confused. No falls. No shortness of breath. No extra swelling in legs. no f/c/NS. Of note, patient was recently admitted and discharged on 10/17 for hyponatremia. At that time, her level at admission was 126; her serum osmolality was low at 267, urine osmolality low at 155, urine sodium 25. She was treated with fluid restriction. At this time, she was also diagnosed with a Pseudomonas UTI and initiated on ciprofloxacin. In the emergency department, patient was found to be mildly hypertensive to 150/80, otherwise normal vital signs. Labs demonstrated white count of 15.2 with left shift, sodium 120 (discharge level 10/17 at 131), chloride 85, BUN 14/creatinine 0.64, blood sugar 110, magnesium 1.6, TSH 4. Urine specific gravity 1.005. COVID test positive. CT head negative for acute processes. Chest x-ray demonstrating chronic interstitial thickening, similar to previous exams, with bibasilar scarring and atelectasisno active disease in the chest. Allergies Allergy/AdvReac Type Severity Reaction Status Date / Time Sulfa (Sulfonamide Allergy Intermediate hives Verified 10/19/21 22:06 Antibiotics) Penicillins Allergy Unknown HIVES Verified 10/19/21 22:06 blue dye AdvReac Mild vomiting Verified 10/19/21 22:06 oseltamivir AdvReac Mild vomiting Verified 10/19/21 22:06 Home Medications Medication Instructions Recorded Confirmed Type sertraline 50 mg tablet 50 mg PO DAILY tab 02/02/19 10/19/21 History acetaminophen 500 mg tablet 500 mg PO BID tab 11/08/19 10/19/21 History (Tylenol Extra Strength) vit C 250 mg-vit E 90 mg-zinc 40 1 tab PO BID 02/08/20 10/19/21 History mg-copper 1 kw-teommz-wyguct capsule (PreserVision AREDS-2) metoprolol succinate 50 mg 50 mg PO DAILY #90 tab 11/14/20 10/19/21 Rx tablet,extended release 24 hr metformin 1,000 mg tablet 1,000 mg PO BID #180 tab 03/31/21 10/19/21 Rx triamterene 37.5 1 cap PO DAILY #90 cap 03/31/21 10/19/21 Rx mg-hydrochlorothiazide 25 mg capsule levothyroxine 112 mcg capsule 112 mcg PO DAILY #90 cap 05/09/21 10/19/21 Rx simvastatin 20 mg tablet 20 mg PO QPM #90 tab 05/29/21 10/19/21 Rx calcium carbonate 600 mg-vitamin 1 tab PO BID 10/15/21 10/19/21 History D3 10 mcg (400 unit) tablet (Calcium 600 + D(3)) multivit-iron 18 mg-folic acid 400 1 tab PO DAILY 10/15/21 10/19/21 History mcg-calcium 500 mg-minerals tablet (Women's One Daily) ciprofloxacin HCl 500 mg tablet 500 mg PO BID #10 tab 10/17/21 10/19/21 Rx (Cipro) hydralazine 25 mg tablet 25 mg PO TID #100 tab 10/17/21 10/19/21 Rx Past Med/Surg History Medical History Diabetes mellitus, type II Hyperlipidemia Hypertension Hyponatremia Hypothyroid Knee pain Mixed conductive and sensorineural hearing loss of right ear with restricted hearing of left ear Neck pain Osteoporosis 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 SNHL (sensorineural hearing loss) Surgical History History of dilation and curettage History of hysterectomy supracervical History of mastectomy History of tonsillectomy History of tooth extraction Family History Family/Other Depression Diabetes Heart disease Hypertension Hypercholesteremia Thyroid disorder Other Breast cancer Family history non-contributory Denies family history of Ovarian cancer Prostate cancer Myocardial infarction Colorectal cancer Social History Smoking Status: Former smoker Tobacco Type: Cigarettes Age Started Using Tobacco: 17; Age Quit Using Tobacco: 45; Second Hand Exposure: No; Hx Alcohol Use: No Hx Substance Use: No Preferred Language: Tajik Communication Ability: Effective Visual Impairment: No Limitations Hearing Ability: Normal Beliefs That Will Affect Care: None marital status: / Current Living Situation: Alone current occupational status: retired Feels Safe at Home: Yes Dental Care, Regularly: Yes Physical Activity Frequency: Daily Seatbelt Use: always Assistive Devices: None Review of Systems Review of Systems: as per HPI Physical Exam Physical Exam: General: Tired appearing 89-year old female who is alert, oriented, and appears in no acute distress. HEENT: NCAT. - Eyes - Sclera are white, anicteric, and without injection. - Mouth - MMM - Neck - supple, no appreciable JVD Cardiac: Normal rate and regular rhythm; S1 and S2 present with no murmurs, rubs, or gallops. Pulmonary: Good respiratory effort with symmetric expansion of the chest. No use of accessory muscles. Lungs were clear to auscultation bilaterally with no crackles or wheezes. Abdominal: Normoactive bowel sounds. Abdomen was soft, nondistended, and non- tender to palpation. Extremities: Upper and lower extremities are warm and well perfused. Minimal, but trace, peripheral edema in the lower extremities bilaterally Psych: Well-developed, well-nourished, appropriately dressed for occasion. Behavior is cooperative and appropriate. Affect is WNL. Insight is appropriate. Neuro: - Cranial Nerves: CN2-12 grossly intact. - Motor: UE - Finger, wrist, elbow, and shoulder strength is 5/5 bilaterally. LE - Hip, knee, and ankle strength is 5/5 bilaterally. - Sensation: UE and LE sensation to light touch is grossly intact bilaterally. Results & Data Results & Data ([facility]) Vital Signs (Past 12 Hours) Vital Signs Temp Pulse Resp BP Pulse Ox 10/20/21 00:25 63 16 168/76 H 96 10/19/21 23:00 62 20 179/81 H 97 10/19/21 22:26 36.6 C 65 19 149/79 H 94 Resident Activity Tracking Resident Involvement: Resident Care Provided Care Provided: Adult Hospital Medicine (1) Hypertension Hypertension type: essential hypertension Qualified Code(s): I10 - Essential (primary) hypertension
[2021-10-20] MEDS ORDERED: ACETAMINOPHEN 325 MG TAB PO PRN (01:47)
[2021-10-20] MEDS ORDERED: SODIUM CHLORIDE 1 GM TABLET PO STA (01:53)
[2021-10-20] MEDS ORDERED: ENOXAPARIN INJ 40 MG/0.4 ML SYR SQ SCH (02:00)
[2021-10-20] MEDS ORDERED: CARBOHYDRATES FOR HYPOGLYCEMIA PO PRN (05:36)
[2021-10-20] MEDS ORDERED: GLUCAGON FOR INJ 1 MG VIAL SQ PRN (05:36)
[2021-10-20] MEDS ORDERED: DEXTROSE 50% 50 ML SYRINGE IV PRN (05:36)
[2021-10-20] MEDS ORDERED: GLUCOSE 40% GEL 15 GM TUBE PO PRN (05:36)
[2021-10-20] MEDS ORDERED: GLUCOSE 10 TABS/TUBE PO PRN (05:36)
[2021-10-20 05:43] LABS: Anion Gap 7 (3-11); Blood Urea Nitrogen 13 mg/dl (6-23); Calcium 8.4 mg/dl (8.5-10.1); Carbon Dioxide 25 mmol/L (21-32); Chloride 92 mmol/L (98-107); Est GFR (African American) 93.3 ml/min; Est GFR (Non-African American) 80.5 ml/min; Glucose 116 mg/dl (70-99(Fasting)); Potassium 3.6 mmol/L (3.5-5.1); Sodium 124 mmol/L (136-145)
--- NOTE | 2021-10-20 08:03 | Hospitalist Progress Note ---
Date of Service October 20, 2021 Assessment & Plan (1) Acute confusion: (2) Acute hyponatremia: (3) Weakness: (4) COVID-19: (5) Diabetes mellitus, type II: (6) Hyperlipidemia: (7) Hypertension: (8) Hypothyroid: (9) Osteoporosis: Plan: Clover is an 89-year-old female with recent admission for hyponatremia, hearing loss, osteoporosis, type 2 diabetes, hypertension on hydrochlorothiazide triamterene, hypothyroidism who presented to [facility] for evaluation of bilateral leg weakness, subsequently found to have hyponatremia of 120 on arrival. Hyponatremia: - Recently discharged 10/17 for hyponatremia with low urine osmolality (155), low serum osmolality (267), and urine sodium 27 -- corrected to 131 PTD with fluid restriction - On arrival, found to have Na 120 -- unable to check uOsm/sOsm due to lab equipment being down; suspect likely similar to previous - Given rapid drop and reported increased of H2O consumption, suspect secondary to polydipsia and possibly contribution from her diuretic (HCTZ-triamterene) - Fluid restriction < 2L/day - Salt tab 1g t.i.d. MERY - Serial BMPs q6h - latest sodium 126 - Neurovasculature checks, seizure precautions - Monitor on MS/Tele - Hold HCTZ-triamterene Acute Confusion: - Increased weakness and confusion upon arrival reported by caregiver (prior to admission) - Seems to have improved overnight, responded to questions appropriately - work-up as follows: - fully A&O, no e/o FNDs on neuro exam - hyponatremia 120 on arrival with mild hypomagnesemia 1.6 - CBC with leukocytosis and L shift - resolving UTI on ciprofloxacin (end 10/22) - CT head without acute abnormalities - procal negative - suspect secondary to hyponatremia. - hyponatremia as above; monitor mentation with fluid restriction/salt tabs -- if confusion recurs, may wish to d/c ciprofloxacin as symptoms have resolved - trend CBC for leukocytosis - UTI noted, though clinically resolved and no other GI, skin, pulmonary causes to explain -- ?stress demargination T2DM: - Last A1c at 6.5% on 10/16/21 -- just over threshold, at-goal - ACHS BSG checks with loose SSI - Hold metformin HTN: - STOP HCTZ 25-triamterene 37.5mg -- consider transitioning to CCB as alternative regimen - Continue home metoprolol succinate 50mg daily, hydralazine 25 tid. - Added lisinopril 10mg q24h. UTI: - diagnosed during last admission on 10/15/21 -- UCX revealing prieto-sensitive Pseudomonas - UA without infectious appearance on admission - continue ciprofloxacin through 10/22 then STOP to complete course Hyperlipidemia: - Continue home simvastatin. Hypothyroidism: - Continue home levothryoxine. COVID+: - Tested positive on 10/01 at facility, when admitted on 10/15 -- tested positive again today, 10/20, on admission - Asypmtomatic. No O2 requirement. No indication for pharmacologic therapeutics. - May be positive due to residual sloughing of virus. - Contact precautions - reached out and [facility] for infection control on possibility of removing precautions. DVT Prophylaxis: Heparin F/E/N/GI: Carb Consistent T2DM, fluid restriction <2L, salt tab tid Code Status: Full Code Dispo: Med/surg tele. Request for Admission and Anticipated Discharge Date Admission Date: October 20, 2021 Supervising Physician Co-Signing Physician Notes I personally examined the patient and verified all martin points of history and exam, discussed case, and agree with decision making with Dr Jurado feeling good just bored. explained working dx for hyponatremia (solute loss from thiazide plus polydipsia) vitals noted nad heent nc at mmm breathing unlabored no accessory muscles good effort skin no rashes no pallor or icterus mentation appears intact hyponatremia - likely both polydipsia and salt wasting from diuretic. improving. follow. dc thiazide. HTN - off thiazide. trial of lisinopril instead. follow asymptomatic covid test (+) otherwise as above, lovneox DVT proph Subjective Patient seen at bedside today. Patient stating she feels much better mentally than she did yesterday when she came in. She had a whole bunch of brain fog and confusion that she attributed to COVID infection. She did not have complaints today and stated she is eating and drinking well. Denies fevers, chills, shortness of breath, chest pain. Spoke with daughter on phone, daughter relayed patient stays at the [facility]. She also stated she spoke with the [facility] about having patient go to the [facility] for a short period before returning to [facility]. Review of Systems Constitutional: as per Subjective / HPI Physical Exam Constitutional: WD/WN, vitals as above Eyes: PERRL, conjunctivae normal, anicteric sclerae Respiratory: normal respiratory effort, lungs clear to auscultation Cardiovascular: RRR, no murmur, no edema Gastrointestinal (Abdomen): normal bowel sounds, soft, nontender, no hepatos plenomegaly Psychiatric: A+Ox3, euthymic affect Results & Data Results & Data ([facility]) Vital Signs (Past 12 Hours) Vital Signs Temp Pulse Resp BP BP Pulse Ox 10/20/21 07:12 56 L 10/20/21 06:32 36.6 C 16 188/75 H 98 10/20/21 04:00 55 L 16 95/44 L 91 10/20/21 03:01 54 L 18 97/43 L 92 10/20/21 02:00 63 17 170/92 H 95 10/20/21 01:00 61 18 158/79 H 93 10/20/21 00:25 63 16 168/76 H 96 10/19/21 23:00 62 20 179/81 H 97 10/19/21 22:26 36.6 C 65 19 149/79 H 94 Resident Activity Tracking Resident Involvement: Resident Care Provided Care Provided: Adult Hospital Medicine (1) Hypertension Hypertension type: essential hypertension Qualified Code(s): I10 - Essential (primary) hypertension
[2021-10-20] MEDS: LEVOTHYROXINE SODIUM 112 MCG TABLET PO SCH (08:24)
[2021-10-20] MEDS: CEROVITE ADV FORMULA TAB PO SCH (08:24)
[2021-10-20] MEDS: ACETAMINOPHEN 500 MG TAB PO SCH ×2 (08:24→21:42)
[2021-10-20] MEDS: CALCIUM 600MG + VIT D 400 IU TAB PO SCH ×2 (08:24→21:40)
[2021-10-20] MEDS: SODIUM CHLORIDE 1 GM TABLET PO SCH ×3 (08:24→21:44)
[2021-10-20] MEDS: CIPROFLOXACIN 500 MG TAB PO SCH ×2 (08:24→21:43)
[2021-10-20] MEDS: METOPROLOL SUCC 50MG EXT REL TAB PO SCH (08:24)
[2021-10-20] MEDS: hydrALAZINE HCL 25 MG TAB PO SCH ×3 (08:24→21:43)
[2021-10-20] MEDS: SERTRALINE HCL 50 MG TABLET PO SCH (08:24)
[2021-10-20] MEDS: ENOXAPARIN INJ 40 MG/0.4 ML SYR SQ SCH (08:25)
[2021-10-20] MEDS ORDERED: NON-FORMULARY MEDICATION (Vit C,E-Zn-Coppr-Lutein-Zeaxan [Preservision Areds-2] 250-200-40 PO SCH (09:00)
[2021-10-20] MEDS: INSULIN ASPART PER UNIT SC SCH ×4 (09:34→21:20)
[2021-10-20 10:11] LABS: Calcium 8.6 mg/dl (8.5-10.1); Creatinine Clr Calc Pharmacy 51.9 ml/min; Est GFR (African American) 93.3 ml/min; Est GFR (Non-African American) 80.5 ml/min; Potassium 3.4 mmol/L (3.5-5.1)
[2021-10-20] MEDS: lisinopril 10 MG TAB PO SCH (12:31)
[2021-10-20 14:17] LABS: BUN Creatinine Ratio 22.1 (10-20); Calcium 9.5 mg/dl (8.5-10.1); Creatinine Clr Calc Pharmacy 47.3 ml/min; Est GFR (African American) 90.5 ml/min; Est GFR (Non-African American) 78.1 ml/min; Potassium 3.7 mmol/L (3.5-5.1)
[2021-10-20 20:43] LABS: BUN Creatinine Ratio 24.7 (10-20); Calcium 9.1 mg/dl (8.5-10.1); Creatinine Clr Calc Pharmacy 44.1 ml/min; Est GFR (African American) 85.2 ml/min; Est GFR (Non-African American) 73.5 ml/min
[2021-10-20] MEDS: SIMVASTATIN 20 MG TAB PO SCH (21:39)
[2021-10-21] MEDS: LEVOTHYROXINE SODIUM 112 MCG TABLET PO SCH (06:06)
--- NOTE | 2021-10-21 06:56 | Hospitalist Progress Note ---
Date of Service October 21, 2021 Assessment & Plan (1) Acute confusion: (2) Acute hyponatremia: (3) Weakness: (4) COVID-19: (5) Diabetes mellitus, type II: (6) Hyperlipidemia: (7) Hypertension: (8) Hypothyroid: (9) Osteoporosis: Plan: Clover is an 89-year-old female with recent admission for hyponatremia, hearing loss, osteoporosis, type 2 diabetes, hypertension on hydrochlorothiazide triamterene, hypothyroidism who presented to [facility] for evaluation of bilateral leg weakness, subsequently found to have hyponatremia of 120 on arrival. Hyponatremia: - Recently discharged 10/17 for hyponatremia with low urine osmolality (155), low serum osmolality (267), and urine sodium 27 -- corrected to 131 PTD with fluid restriction - On arrival, found to have Na 120 -- unable to check uOsm/sOsm due to lab equipment being down; suspect likely similar to previous - Given rapid drop and reported increased of H2O consumption, suspect secondary to polydipsia and possibly contribution from her diuretic (HCTZ-triamterene) - Fluid restriction < 2L/day - Salt tab 1g t.i.d. MERY - Serial BMPs q6h - latest sodium 127 - Neurovasculature checks, seizure precautions - Monitor on MS/Tele - Hold HCTZ-triamterene Acute Confusion: - Increased weakness and confusion upon arrival reported by caregiver (prior to admission) - Seems to have improved overnight on admission, responded to questions appropr iately - work-up as follows: - fully A&O, no e/o FNDs on neuro exam - hyponatremia 120 on arrival with mild hypomagnesemia 1.6 - CBC with leukocytosis and L shift - resolving UTI on ciprofloxacin (end 10/22) - CT head without acute abnormalities - procal negative - suspect secondary to hyponatremia. - hyponatremia as above; monitor mentation with fluid restriction/salt tabs -- if confusion recurs, may wish to d/c ciprofloxacin as symptoms have resolved - trend CBC for leukocytosis - UTI noted, though clinically resolved and no other GI, skin, pulmonary causes to explain -- ?stress demargination T2DM: - Last A1c at 6.5% on 10/16/21 -- just over threshold, at-goal - ACHS BSG checks with loose SSI - Hold metformin HTN: - STOP HCTZ 25-triamterene 37.5mg -- consider transitioning to CCB as alternative regimen - Continue home metoprolol succinate 50mg daily, hydralazine 25 tid. - Added lisinopril 10mg q24h. UTI: - diagnosed during last admission on 10/15/21 -- UCX revealing prieto-sensitive Pseudomonas - UA without infectious appearance on admission - continue ciprofloxacin through 10/22 then STOP to complete course Hyperlipidemia: - Continue home simvastatin. Hypothyroidism: - Continue home levothryoxine. COVID+: - Tested positive on 10/01 at facility, when admitted on 10/15 -- tested positive again today, 10/20, on admission - Asypmtomatic. No O2 requirement. No indication for pharmacologic therapeutics. - May be positive due to residual sloughing of virus. - Contact precautions - reached out and [facility] for infection control on possibility of removing precautions. - Will try to reach out to [facility] for original test result, if positive 10/01 as documented verbally from patient in previous note can D/C precautions. DVT Prophylaxis: Heparin F/E/N/GI: Carb Consistent T2DM, fluid restriction <2L, salt tab tid Code Status: Full Code Dispo: Med/surg tele. Request for Admission and Anticipated Discharge Date Admission Date: October 20, 2021 Supervising Physician Co-Signing Physician Notes I personally examined the patient and verified all martin points of history and exam, discussed case, and agree with decision making with Dr Jurado notes off and on confusion through today. someitmes better sometimes can't get her thoughts out or when she's written something down she notes that later she can't understand it vitals noted nad heent nc at mmm breathing unlabored no accessory muscles good effort skin no rashes no pallor or icterus CN 2-12 grossly intact gross motor symmetric no noted focal deficits. appearing to be anxious conversationally appropriate but with a hint of pressured speech and a tiny bit of anchoring and tangentialism that are often seen with delirium - corroborating her suspicions hyponatremia - likely both polydipsia and salt wasting from diuretic. improving. follow. dc'd thiazide. delirium - likely incited by hyponatremia, but also exacerbated by environment, age. currently lucid - tried to explain delirium in detail (i've found that it often helps mitigate deliriousness severity), reassurrance/reorientation as needed, supportive care, raised the curtain in the room; ideally out of hospital as soon as atrium can be set up HTN - off thiazide. trial of lisinopril instead. follow - BP reasonable given the situation asymptomatic covid test (+) otherwise as above, lovneox DVT proph Subjective Patient states she felt a little off this morning a little similar to before she came in. She states she woke up and heard a hoahaoism service on TV that she thought was a service for herself. States she feels like she wanted to go home yesterday but today feels like she wants to stay due to this confusion she experienced this morning. She denies any shortness of breath, chest pain, fevers, chills. Review of Systems Constitutional: as per Subjective / HPI Physical Exam Constitutional: WD/WN, vitals as above Eyes: PERRL, conjunctivae normal, anicteric sclerae Respiratory: normal respiratory effort, lungs clear to auscultation Cardiovascular: RRR, no murmur, no edema Psychiatric: A+Ox3, euthymic affect Results & Data Results & Data ([facility]) Vital Signs (Past 12 Hours) Vital Signs Temp Pulse Resp BP Pulse Ox 10/20/21 22:46 36.6 C 59 L 18 174/82 H 95 10/20/21 20:23 36.5 C 55 L 18 117/69 95 Resident Activity Tracking Resident Involvement: Resident Care Provided Care Provided: Adult Hospital Medicine (1) Hypertension Hypertension type: essential hypertension Qualified Code(s): I10 - Essential (primary) hypertension
[2021-10-21 08:35] LABS: Basophils # (auto) 0.03 K/uL (0-0.2); Basophils % (auto) 0.3 %; Eosinophils # (auto) 0.11 K/uL (0-0.5); Hematocrit (blood only) 37.7 % (37-47); Hemoglobin 12.9 g/dL (12.0-16.0); Immature Granulocytes # (auto) 0.12 K/uL (0.00-0.02); Immature Granulocytes % (auto) 1.1 %; Lymphocytes # (auto) 1.91 K/uL (1.2-3.4); Mean Corpuscular Hemoglobin 31.3 pg (25-34); Mean Corpuscular Hgb Conc 34.2 g/dL (32-36); Mean Corpuscular Volume 91.5 fL (80-100); Mean Platelet Volume 8.7 fL (7.4-10.4); Monocytes # (auto) 1.07 K/uL (0.11-0.59); Monocytes % (auto) 10.1 %; Neutrophils # (auto) 7.39 K/uL (1.4-6.5); Neutrophils % (auto) 69.5 %; Platelet Count 471 K/uL (130-400); RDW Coefficient of Variation 13.9 % (11.5-14.5); RDW Standard Deviation 45.9 fL (36.4-46.3); Red Blood Count 4.12 M/uL (4.2-5.4); White Blood Count 10.63 K/uL (4.8-10.8)
[2021-10-21 08:49] LABS: BUN Creatinine Ratio 22.2 (10-20); Calcium 9.3 mg/dl (8.5-10.1); Creatinine Clr Calc Pharmacy 46.6 ml/min; Est GFR (African American) 92.8 ml/min; Est GFR (Non-African American) 80.1 ml/min; Potassium 3.6 mmol/L (3.5-5.1)
[2021-10-21] MEDS: INSULIN ASPART PER UNIT SC SCH ×5 (09:07→23:45)
[2021-10-21] MEDS: lisinopril 10 MG TAB PO SCH (09:08)
[2021-10-21] MEDS: SODIUM CHLORIDE 1 GM TABLET PO SCH ×3 (09:08→20:36)
[2021-10-21] MEDS: SERTRALINE HCL 50 MG TABLET PO SCH (09:09)
[2021-10-21] MEDS: hydrALAZINE HCL 25 MG TAB PO SCH ×3 (09:09→20:35)
[2021-10-21] MEDS: CIPROFLOXACIN 500 MG TAB PO SCH ×2 (09:09→20:39)
[2021-10-21] MEDS: CEROVITE ADV FORMULA TAB PO SCH (09:09)
[2021-10-21] MEDS: CALCIUM 600MG + VIT D 400 IU TAB PO SCH ×2 (09:09→20:38)
[2021-10-21] MEDS: ENOXAPARIN INJ 40 MG/0.4 ML SYR SQ SCH (09:10)
[2021-10-21] MEDS: METOPROLOL SUCC 50MG EXT REL TAB PO SCH (09:10)
[2021-10-21] MEDS: ACETAMINOPHEN 500 MG TAB PO SCH ×2 (09:10→20:37)
--- NOTE | 2021-10-21 14:42 | Electrocardiogram Report ---
Test Reason : Blood Pressure : / mmHG Vent. Rate : 065 BPM Atrial Rate : 065 BPM P-R Int : 134 ms QRS Dur : 072 ms QT Int : 436 ms P-R-T Axes : 061 021 041 degrees QTc Int : 453 ms Normal sinus rhythm Moderate voltage criteria for LVH, may be normal variant Borderline ECG When compared with ECG of 15-OCT-2021 09:29, No significant change was found Confirmed by Jose Mosley ([id number]) on 10/21/2021 2:42:14 PM Referred By: REFERRED SELF Confirmed By:Jose Mosley
--- NOTE | 2021-10-21 17:27 | Billing Data ---
Date of Service October 21, 2021 Coding Level of Care Code 66959 Subseq Hosp Care Lvl 2
[2021-10-21] MEDS: SIMVASTATIN 20 MG TAB PO SCH (20:37)
[2021-10-22] MEDS: LEVOTHYROXINE SODIUM 112 MCG TABLET PO SCH (06:02)
--- NOTE | 2021-10-22 06:57 | Hospitalist Progress Note ---
Date of Service October 22, 2021 Assessment & Plan (1) Acute confusion: (2) Acute hyponatremia: (3) Weakness: (4) COVID-19: (5) Diabetes mellitus, type II: (6) Hyperlipidemia: (7) Hypertension: (8) Hypothyroid: (9) Osteoporosis: Plan: Clover is an 89-year-old female with recent admission for hyponatremia, hearing loss, osteoporosis, type 2 diabetes, hypertension on hydrochlorothiazide triamterene, hypothyroidism who presented to [facility] for evaluation of bilateral leg weakness, subsequently found to have hyponatremia of 120 on arrival. Hyponatremia: - Recently discharged 10/17 for hyponatremia with low urine osmolality (155), low serum osmolality (267), and urine sodium 27 -- corrected to 131 PTD with fluid restriction - On arrival, found to have Na 120. - Given rapid drop and reported increased of H2O consumption, suspect secondary to polydipsia and possibly contribution from her diuretic (HCTZ-triamterene) - Fluid restriction < 2L/day, Salt tab 1g TID - Hold HCTZ-triamterene - Na 128 today, recheck AM BMP. - On chart review, patient may chronically reside in low 130's for Na level. Acute Confusion: - Increased weakness and confusion upon arrival reported by caregiver (prior to admission) - Seems to have improved overnight on admission, responded to questions appropriately - CT head w/o acute abnormalities. - Treated for UTI w/ ciprofloxacin (last dose 10/22) - WBC 10.63, Procalcitonin negative. - May be secondary to hyponatremia vs underlying neurocognitive issue - hyponatremia as above; can workup for neurodegenerative disorders outpatient. T2DM: - Last A1c at 6.5% on 10/16/21 - ACHS BSG checks with loose SSI - Hold metformin HTN: - STOP HCTZ 25-triamterene 37.5mg. - Continue home metoprolol succinate 50mg daily, hydralazine 25 tid. - Added lisinopril 10mg q24h. UTI: - diagnosed during last admission on 10/15/21 - Urine Culture revealing prieto-sensitive Pseudomonas - UA without infectious appearance on admission - continue ciprofloxacin through 10/22 then STOP to complete course Hyperlipidemia: - Continue home simvastatin. Hypothyroidism: - Continue home levothryoxine. COVID+: - Tested positive on 10/01 at facility, when admitted on 10/15 -- tested positive again today, 10/20, on admission - Asypmtomatic. No O2 requirement. No indication for pharmacologic therapeutics. - May be positive due to residual sloughing of virus. - Called [facility] outpatient clinic for COVID test result from 09/27/21 - Positive result at that time. - Patient >10 days since first positive test, D/C'ed COVID precautions. Constipation -bowel regimen added DVT Prophylaxis: Heparin F/E/N/GI: Carb Consistent T2DM, fluid restriction <2L, salt tab tid Code Status: Full Code Dispo: Med/surg tele. Working w/ case management for D/C [facility], PT/OT to evaluate. Admission and Anticipated Discharge Date Admission Date: October 20, 2021 Supervising Physician Co-Signing Physician Notes Resident Physician Supervision Note: I independently interviewed and examined the patient and verified the martin h istory and physical, reviewed labs and image studies and agree with resident Dr. Jurado findings and care plan. Subjective Patient seen at the bedside today and feeling well at the time of speaking to me. She states that physically she feels fine but mentally she has times of uncertainty. She says this makes her a bit anxious since she is someone who is usually decisive and knows what to do, however these times of uncertainty give her cause for concern and she would like to know why they happen. She says she has good days and bad days with the uncertainty. Denies fevers, chills, shortness of breath. Review of Systems Constitutional: as per Subjective / HPI Physical Exam Constitutional: WD/WN, vitals as above Eyes: PERRL, conjunctivae normal, anicteric sclerae Respiratory: normal respiratory effort, lungs clear to auscultation Cardiovascular: RRR, no murmur, no edema Gastrointestinal (Abdomen): normal bowel sounds, soft, nontender, no hepatosplenomegaly Psychiatric: A+Ox3, euthymic affect Resident Activity Tracking Resident Involvement: Resident Care Provided Care Provided: Adult Hospital Medicine (1) Hypertension Hypertension type: essential hypertension Qualified Code(s): I10 - Essential (primary) hypertension
[2021-10-22 07:19] LABS: BUN Creatinine Ratio 24.1 (10-20); Calcium 9.1 mg/dl (8.5-10.1); Creatinine Clr Calc Pharmacy 37.1 ml/min; Est GFR (African American) 77.5 ml/min; Est GFR (Non-African American) 66.8 ml/min
[2021-10-22] MEDS: INSULIN ASPART PER UNIT SC SCH ×4 (10:10→20:24)
[2021-10-22] MEDS: CALCIUM 600MG + VIT D 400 IU TAB PO SCH ×2 (10:16→20:29)
[2021-10-22] MEDS: ENOXAPARIN INJ 40 MG/0.4 ML SYR SQ SCH (10:16)
[2021-10-22] MEDS: ACETAMINOPHEN 500 MG TAB PO SCH ×2 (10:16→20:29)
[2021-10-22] MEDS: hydrALAZINE HCL 25 MG TAB PO SCH ×3 (10:17→20:28)
[2021-10-22] MEDS: METOPROLOL SUCC 50MG EXT REL TAB PO SCH (10:17)
[2021-10-22] MEDS: lisinopril 10 MG TAB PO SCH (10:17)
[2021-10-22] MEDS: CEROVITE ADV FORMULA TAB PO SCH (10:17)
[2021-10-22] MEDS: SERTRALINE HCL 50 MG TABLET PO SCH (10:18)
[2021-10-22] MEDS: SODIUM CHLORIDE 1 GM TABLET PO SCH ×3 (10:18→20:30)
[2021-10-22] MEDS: POLYETHYLENE (MIRALAX) 17 GM PACK PO SCH ×2 (13:30→20:19)
[2021-10-22] MEDS: SIMVASTATIN 20 MG TAB PO SCH (20:29)
[2021-10-22] MEDS ORDERED: POLYETHYLENE (MIRALAX) 17 GM PACK PO PRN (21:31)
[2021-10-23] MEDS: LEVOTHYROXINE SODIUM 112 MCG TABLET PO SCH (06:11)
[2021-10-23] MEDS: INSULIN ASPART PER UNIT SC SCH ×2 (08:59→12:11)
[2021-10-23] MEDS: lisinopril 10 MG TAB PO SCH (09:20)
[2021-10-23] MEDS: CEROVITE ADV FORMULA TAB PO SCH (09:21)
[2021-10-23] MEDS: METOPROLOL SUCC 50MG EXT REL TAB PO SCH (09:21)
[2021-10-23] MEDS: SODIUM CHLORIDE 1 GM TABLET PO SCH (09:22)
[2021-10-23] MEDS: ENOXAPARIN INJ 40 MG/0.4 ML SYR SQ SCH (09:22)
[2021-10-23] MEDS: ACETAMINOPHEN 500 MG TAB PO SCH (09:22)
[2021-10-23] MEDS: CALCIUM 600MG + VIT D 400 IU TAB PO SCH (09:22)
[2021-10-23] MEDS: hydrALAZINE HCL 25 MG TAB PO SCH (09:22)
[2021-10-23] MEDS: SERTRALINE HCL 50 MG TABLET PO SCH (09:22)
[2021-10-23] MEDS: POLYETHYLENE (MIRALAX) 17 GM PACK PO SCH ×2 (09:23→09:29)
[2021-10-23 09:46] LABS: BUN Creatinine Ratio 29.7 (10-20); Calcium 9.3 mg/dl (8.5-10.1); Creatinine Clr Calc Pharmacy 39.7 ml/min; Est GFR (African American) 83.8 ml/min; Est GFR (Non-African American) 72.3 ml/min
[2021-10-23] MEDS ORDERED: MAGNESIUM HYDROXIDE SUSP 30 ML UDC PO ONE (10:14)
--- NOTE | 2021-10-23 13:31 | Discharge Summary ---
Date of Service October 23, 2021 Admission HPI Per Admitting Provider 89-year-old female with recent admission for hyponatremia, hearing loss, osteoporosis, type 2 diabetes, hypertension on hydrochlorothiazide triamterene, hypothyroidism who presented to [facility] for evaluation of weakness. Patient tells me that since her discharge, she has been drinking "a lot of water to stay hydrated." While her urinary symptoms have much improved (aside from urinating more because of increased water intake), she has progressively felt weaker and a bit more confused. No falls. No shortness of breath. No extra swelling in legs. no f/c/NS. Of note, patient was recently admitted and discharged on 10/17 for hyponatremia. At that time, her level at admission was 126; her serum osmolality was low at 267, urine osmolality low at 155, urine sodium 25. She was treated with fluid restriction. At this time, she was also diagnosed with a Pseudomonas UTI and initiated on ciprofloxacin. In the emergency department, patient was found to be mildly hypertensive to 150/80, otherwise normal vital signs. Labs demonstrated white count of 15.2 with left shift, sodium 120 (discharge level 10/17 at 131), chloride 85, BUN 14/creatinine 0.64, blood sugar 110, magnesium 1.6, TSH 4. Urine specific gravity 1.005. COVID test positive. CT head negative for acute processes. Chest x-ray demonstrating chronic interstitial thickening, similar to previous exams, with bibasilar scarring and atelectasisno active disease in the chest. Admission Exam Per Admitting Provider General: Tired appearing 89-year old female who is alert, oriented, and appears in no acute distress. HEENT: NCAT. - Eyes - Sclera are white, anicteric, and without injection. - Mouth - MMM - Neck - supple, no appreciable JVD Cardiac: Normal rate and regular rhythm; S1 and S2 present with no murmurs, rubs, or gallops. Pulmonary: Good respiratory effort with symmetric expansion of the chest. No use of accessory muscles. Lungs were clear to auscultation bilaterally with no crackles or wheezes. Abdominal: Normoactive bowel sounds. Abdomen was soft, nondistended, and non- tender to palpation. Extremities: Upper and lower extremities are warm and well perfused. Minimal, but trace, peripheral edema in the lower extremities bilaterally Psych: Well-developed, well-nourished, appropriately dressed for occasion. Behavior is cooperative and appropriate. Affect is WNL. Insight is appropriate. Neuro: - Cranial Nerves: CN2-12 grossly intact. - Motor: UE - Finger, wrist, elbow, and shoulder strength is 5/5 bilaterally. LE - Hip, knee, and ankle strength is 5/5 bilaterally. - Sensation: UE and LE sensation to light touch is grossly intact bilaterally. Principal Diagnosis Hyponatremia Discharge Exam Constitutional WD/WN, vitals as above Eyes PERRL, conjunctivae normal, anicteric sclerae Respiratory normal respiratory effort, lungs clear to auscultation Cardiovascular RRR, no murmur, no edema Gastrointestinal (Abdomen) normal bowel sounds, soft, nontender, no hepatosplenomegaly Psychiatric A+Ox3, euthymic affect Discharge Data Allergies Allergy/AdvReac Type Severity Reaction Status Date / Time Sulfa (Sulfonamide Allergy Intermediate hives Verified 10/19/21 22:06 Antibiotics) Penicillins Allergy Unknown HIVES Verified 10/19/21 22:06 blue dye AdvReac Mild vomiting Verified 10/19/21 22:06 oseltamivir AdvReac Mild vomiting Verified 10/19/21 22:06 Consultations 10/20/21 00:32 ED Decision to Admit Stat Ordered Studies 10/19/21 22:15 CT head/brain wo con Stat IMPRESSION: There is no hemorrhage, mass effect, or evidence of acute territorial ischemia by CT criteria. Hospital Course (1) Acute hyponatremia: (2) COVID-19: (3) Urinary tract infection: (4) Hypothyroid: (5) Hypertension: (6) Diabetes mellitus, type II: Clover is an 89-year-old female with recent admission for hyponatremia, hearing loss, osteoporosis, type 2 diabetes, hypertension on hydrochlorothiazide triamterene, hypothyroidism who presented to [facility] for evaluation of bilateral leg weakness, subsequently found to have hyponatremia of 120 on arrival. Hyponatremia: - Recently discharged 10/17 for hyponatremia with low urine osmolality (155), low serum osmolality (267), and urine sodium 27 -- corrected to 131 PTD with fluid restriction - On arrival, found to have Na 120. - Given rapid drop and reported increased of H2O consumption, suspect secondary to polydipsia and possibly contribution from her diuretic (HCTZ-triamterene) - During hospital stay, fluid restriction < 2L/day, Salt tab 1g TID - D/C Hydrochlorothiazide medication. - Na 130 today. - On chart review, patient may chronically reside in low 130's for Na level. Acute Confusion: - Increased weakness and confusion upon arrival reported by caregiver (prior to admission) - Seems to have improved overnight on admission, responded to questions appropriately - CT head w/o acute abnormalities. - May be secondary to hyponatremia vs underlying neurocognitive issue - Treated for UTI w/ ciprofloxacin (last dose 10/22 - hyponatremia as above; can workup for neurodegenerative disorders outpatient. HTN: - STOP HCTZ 25-triamterene 37.5mg. - Continue home metoprolol succinate 50mg daily, hydralazine 25 tid. - Added lisinopril 10mg q24h. UTI: - diagnosed during last admission on 10/15/21 - Urine Culture revealing prieto-sensitive Pseudomonas - Completed Ciprofloxacin regimen on 10/22. COVID+: - Tested positive on 10/01 at facility, when admitted on 10/15 -- tested positive again today, 10/20, on admission - Asypmtomatic. No O2 requirement. No indication for pharmacologic therapeutics. - Called [facility] outpatient clinic for COVID test result from 09/27/21 - Positive result at that time. - Patient >10 days since first positive test, D/C'ed COVID precautions. Constipation -bowel regimen added, patient without bowel movement for 3 days. Please continue laxatives. Total Time Total Time Spent Total Time Spent (In Minutes): Please see attending attestation. Discharge Plan Discharge Items Patient Disposition: Transfer Longterm Fac Reason For Visit: HYPONATREMIA Discharge Diagnosis: Hyponatremia Activity: Per Instructions section Non-emergency contact: Primary Care Provider Call non-emergency contact if: your symptoms worsen, your pain is worsening and your temperature is above 101 Follow-up/Referrals: [facility] [Primary Care Provider] - Diet: Regular Addtl Attending Provider Instructions: Clover is an 89-year-old female with recent admission for hyponatremia, hearing loss, osteoporosis, type 2 diabetes, hypertension on hydrochlorothiazide triamterene, hypothyroidism who presented to [facility] for evaluation of bilateral leg weakness, subsequently found to have hyponatremia of 120 on arrival. Hyponatremia: - Recently discharged 10/17 for hyponatremia with low urine osmolality (155), low serum osmolality (267), and urine sodium 27 -- corrected to 131 PTD with fluid restriction - On arrival, found to have Na 120. - Given rapid drop and reported increased of H2O consumption, suspect secondary to polydipsia and possibly contribution from her diuretic (HCTZ-triamterene) - During hospital stay, fluid restriction < 2L/day, Salt tab 1g TID - D/C Hydrochlorothiazide medication. - Na 130 today. - On chart review, patient may chronically reside in low 130's for Na level. Acute Confusion: - Increased weakness and confusion upon arrival reported by caregiver (prior to admission) - Seems to have improved overnight on admission, responded to questions appropriately - CT head w/o acute abnormalities. - Treated for UTI w/ ciprofloxacin (last dose 10/22) - WBC 10.63, Procalcitonin negative. - May be secondary to hyponatremia vs underlying neurocognitive issue - hyponatremia as above; can workup for neurodegenerative disorders outpatient. HTN: - STOP HCTZ 25-triamterene 37.5mg. - Continue home metoprolol succinate 50mg daily, hydralazine 25 tid. - Added lisinopril 10mg q24h. UTI: - diagnosed during last admission on 10/15/21 - Urine Culture revealing prieto-sensitive Pseudomonas - UA without infectious appearance on admission - Completed Ciprofloxacin regimen on 10/22. COVID+: - Tested positive on 10/01 at facility, when admitted on 10/15 -- tested positive again today, 10/20, on admission - Asypmtomatic. No O2 requirement. No indication for pharmacologic therapeutics. - Called [facility] outpatient clinic for COVID test result from 09/27/21 - Positive result at that time. - Patient >10 days since first positive test, D/C'ed COVID precautions. Constipation -bowel regimen added, patient without bowel movement for 3 days. Please continue laxatives. Pending Studies at Discharge: No Stand-Alone Forms: My [employer] Skilled Items Patient informed of condition?: Yes DNR: No Discharge Level of Care: Skilled Communicable Disease: No Discharge Prognosis: Stable Lines: None Urinary Catheter: No Medications and DC Order Prescriptions: New lisinopril 10 mg Tablet 10 mg PO QAM Qty: 30 RF: 0 Continued metoprolol succinate 50 mg tablet extended release 24 hr 50 mg PO DAILY Qty: 90 RF: 3 metformin 1,000 mg tablet 1,000 mg PO BID Qty: 180 RF: 3 levothyroxine 112 mcg capsule 112 mcg PO DAILY Qty: 90 RF: 3 simvastatin 20 mg tablet 20 mg PO QPM Qty: 90 RF: 3 acetaminophen [Tylenol Extra Strength] 500 mg tablet 500 mg PO BID RF: 0 PreserVision AREDS-2 [id number] jn-[id number]-mg capsule 1 tab PO BID RF: 0 sertraline 50 mg tablet 50 mg PO DAILY RF: 0 calcium carbonate-vitamin D3 [Calcium 600 + D(3)] 600 mg-10 mcg (400 unit) Tablet 1 tab PO BID RF: 0 Women's One Daily 18 mg iron-400 mcg-500 mg Ca Tablet 1 tab PO DAILY RF: 0 hydralazine 25 mg Tablet 25 mg PO TID Qty: 100 RF: 0 Discontinued triamterene-hydrochlorothiazid 37.5-25 mg capsule 1 cap PO DAILY Qty: 90 RF: 3 ciprofloxacin HCl [Cipro] 500 mg tablet 500 mg PO BID Qty: 10 RF: 0 Discharge Orders: Discharge Order (Routine); Ordered 10/23/21 Ordered By: William Jurado Admission Data Admit Date/Time: 10/20/21 01:47 Attending Provider: Joanne Rosenberg Admit Provider: Rodolfo Curiel [facility] Other Providers: David Lugo ; Rodolfo Lezama Other Interventions: Discharge Summary Assessment (RN) Last Done: 10/23/21 13:48 Supervising Physician Co-Signing Physician Notes Resident Physician Supervision Note: I independently interviewed and examined the patient and verified the martin history and physical, reviewed labs and image studies and agree with resident Dr. Jurado findings and care plan. Resident Activity Tracking Resident Involvement: Resident Care Provided Care Provided: Adult Hospital Medicine
== END 2021-10-23 15:07 | DRG 641 ==
LOC: ED 21:48 → SUATTDRO 10-20 01:47 → 2W 10-20 01:47